=== PATIENT | male | born 2000 | race Caucasian/White ===

== ENCOUNTER 2022-04-06 16:08 | Emergency (ER) | payer SELFPAY ==
[2022-04-06] MEDS ORDERED: LORAZEPAM 1 MG TABLET ONE (16:38)
[2022-04-06 17:04] LABS: Absolute Lymphocytes (CBC) 1.7 K/uL (0.7-4.9); Lymphocytes % 24.2 % (15.3-44.8); MCV 83.3 fL (80-100); MPV 6.9 fL (7.6-11.3); RBC Red Blood Cell Count 5.29 M/uL (4.33-5.43)
[2022-04-06 17:23] LABS: Potassium 3.5 mmol/L (3.5-5.1); Troponin High Sensitivity 8.6 pg/mL (<58.9)
--- NOTE | 2022-04-06 18:05 | RAD REPORT ---
EXAM DESCRIPTION: RAD - Chest Single View - 04/06/2022 6:00 pm CLINICAL HISTORY: PALPITATIONS COMPARISON: None TECHNIQUE: AP portable chest image was obtained 04/06/2022 6:00 pm . FINDINGS: Lungs are clear. Heart and vasculature are normal. No measurable pleural effusion and no p neumothorax. No acute bony abnormality seen. No acute aortic findings suspected. IMPRESSION: No acute cardiopulmonary process.
--- NOTE | 2022-04-06 18:12 | ER ---
Nurse's Notes [facility] Name: Alfredo Guajardo Age: 21 yrs Sex: Male : 2000 Arrival Date: 04/06/2022 Time: 16:13 Bed 16 Private MD: Diagnosis: Palpitations Presentation: 04/06 16:17 Chief complaint: Patient states: Anxiety that all of a sudden came on with chest mb9 palpitations states has hx of anxiety. no longer takes medications for it. Chief complaint: EMS states: Patient picked up at home in his car. Patient had an anxiety attack. HR in the 160's for EMS. Glucose 96. Coronavirus screen: Vaccine status: Patient reports being unvaccinated. Client denies travel out of the [place] in the last 14 days. At this time, the client does not indicate any symptoms associated with coronavirus-19. Ebola Screen: Patient negative for fever greater than or equal to 101.5 degrees Fahrenheit, and additional compatible Ebola Virus Disease symptoms Patient denies exposure to infectious person. Patient denies travel to an Ebola-affected area in the 21 days before illness onset. No symptoms or risks identified at this time. Initial Sepsis Screen: Does the patient meet any 2 criteria? HR > 90 bpm. Yes Does the patient have a suspected source of infection? No. Patient's initial sepsis screen is negative. Risk Assessment: Do you want to hurt yourself or someone else? Patient reports no desire to harm self or others. Onset of symptoms was April 06, 2022. Care prior to arrival: IV initiated. 20 GA, in the right antecubital area. 16:17 Method Of Arrival: EMS: [facility] mb9 16:17 Acuity: CHRIS 3 mb9 Triage Assessment: 16:32 General: Appears in no apparent distress. comfortable, Behavior is calm, cooperative, mb9 anxious. Pain: Denies pain. Neuro: No deficits noted. Level of Consciousness is awake, alert, obeys commands, Oriented to person, place, time, situation, Appropriate for age. Cardiovascular: Reports palpitations, Capillary refill < 3 seconds Pulses are all present. Rhythm is sinus rhythm Chest pain is denied. Respiratory: No deficits noted. Airway is patent Respiratory effort is even, unlabored, Respiratory pattern is regular, symmetrical. Historical: - Allergies: 16:32 No Known Allergies; mb9 - Home Meds: 16:32 None [Active]; mb9 - PMHx: 16:32 Anxiety; ADHD; mb9 - Immunization history:: Adult Immunizations not up to date, Client reports having NOT received the Covid vaccine. - Social history:: Smoking status: Patient denies any tobacco usage or history of. Screenin:33 Abuse screen: Denies threats or abuse. Denies injuries from another. Nutritional mb9 screening: No deficits noted. Tuberculosis screening: No symptoms or risk factors identified. Fall Risk None identified. No fall in past 12 months (0 pts). No secondary diagnosis (0 pts). IV access (20 points). Ambulatory Aid- None/Bed Rest/Nurse Assist (0 pts). Gait- Normal/Bed Rest/Wheelchair (0 pts) Mental Status- Oriented to own ability (0 pts). Total Borja Fall Scale indicates No Risk (0-24 pts). Assessment: 16:33 Reassessment: Patient appears in no apparent distress at this time. see triage mb9 assessment for initial assessment. 17:30 Reassessment: Patient appears in no apparent distress at this time. Patient and/or db family updated on plan of care and expected duration. Pain level reassessed. Patient is alert, oriented x 3, equal unlabored respirations, skin warm/dry/pink. Patient states feeling better. 18:09 Reassessment: Patient appears in no apparent distress at this time. Patient and/or db family updated on plan of care and expected duration. Pain level reassessed. Patient is alert, oriented x 3, equal unlabored respirations, skin warm/dry/pink. Patient states feeling better. Patient states symptoms have improved. General: Appears in no apparent distress. comfortable, Behavior is calm, cooperative, appropriate for age, quiet. Pain: Denies pain. Neuro: No deficits noted. Level of Consciousness is awake, alert, obeys commands, Oriented to person, place, time, situation, Appropriate for age Speech is normal, Facial symmetry appears normal, Pupils are PERRLA. Cardiovascular: No deficits noted. Capillary refill < 3 seconds. Respiratory: No deficits noted. Airway is patent Respiratory effort is even, unlabored, Respiratory pattern is regular, symmetrical. GI: No deficits noted. No signs and/or symptoms were reported involving the gastrointestinal system. : No deficits noted. No signs and/or symptoms were reported regarding the genitourinary system. Vital Signs: 16:17 BP 138 / 96; Pulse 109; Resp 14; Temp 98.2(O); Pulse Ox 100% on R/A; Weight 72.57 kg; mb9 Height 5 ft. 7 in. (170.18 cm); Pain 0/10; 16:45 BP 141 / 89; Pulse 107; Resp 18; Pulse Ox 100% on R/A; db 17:30 BP 108 / 71; Pulse 100; Resp 16; Pulse Ox 99% on R/A; db 18:00 BP 109 / 68; Pulse 96; Resp 18; Pulse Ox 99% on R/A; db 18:45 BP 122 / 71; Pulse 97; Resp 17; Pulse Ox 99% on R/A; db 16:17 Body Mass Index 25.06 (72.57 kg, 170.18 cm) mb9 ED Course: 16:13 Patient arrived in ED. ld1 16:15 Denzel Guerra PA is PHCP. [facility] 16:15 Olman Rice MD is Attending Physician. [facility] 16:22 PHCP role handed off by Denzel Guerra PA kb 16:22 Yvette Hoskins FNP-C is PHCP. kb 16:31 Triage completed. mb9 16:33 Arm band placed on right wrist. mb9 16:34 Maintain EMS IV. Dressing intact. Good blood return noted. Site clean \T\ dry. Gauge \T\ mb 9 site: 20G right AC. 16:50 Initial lab(s) drawn, by ED staff, sent to lab. iw 16:53 Mariam Ruffin, RN is Primary Nurse. db 18:02 XRAY Chest (1 view) In Process Unspecified. EDMS 18:10 Patient has correct armband on for positive identification. Bed in low position. Call db light in reach. Side rails up X 1. 18:55 No provider procedures requiring assistance completed. IV discontinued, intact, db bleeding controlled, No redness/swelling at site. Administered Medications: 16:30 Drug: Ativan (LORazepam) 1 mg Route: PO; db 18:07 Follow up: Response: No adverse reaction db Medication: 16:33 VIS not applicable for this client. mb9 Outcome: 18:11 Discharge ordered by . kb 18:55 Discharged to home ambulatory. db 18:55 Condition: stable 18:55 Discharge instructions given to patient, Instructed on discharge instructions, follow up and referral plans. Demonstrated understanding of instructions. 18:56 Patient left the ED. db Signatures: Dispatcher [employer] EDYvette Gooden, SUPPORT ENGINEER-C SUPPORT ENGINEER-CkDenzel Hernandez PA PA jmm Williams, Irene, RN RN iw Tiffany Bean RN RN ld1 Mariam Ruffin RN RN db Yodit Lamb RN RN mb9 Corrections: (The following items were deleted from the chart) 16:45 16:27 Yodit Lamb RN is Primary Nurse. mb9 mb9
--- NOTE | 2022-04-06 18:12 | EDPHYS ---
Physician Documentation [facility] Name: Alfredo Guajardo Age: 21 yrs Sex: Male : 2000 Arrival Date: 04/06/2022 Time: 16:13 Bed 16 Private MD: ED Physician Olman Rice HPI: 04/06 17:15 This 21 yrs old Male presents to ER via EMS with complaints of Anxiety. kb 17:15 The patient presents with a history of heart racing. Context: The symptoms occur at kb rest. Onset: The symptoms/episode began/occurred just prior to arrival. Duration: The patient or guardian reports a single episode, that is still ongoing, but improving. Modifying factors: The symptoms are aggravated by nothing. The symptoms are alleviated by nothing. Associated signs and symptoms: Pertinent positives: anxiety, SOB. Severity of symptoms: At their worst the symptoms were moderate in the emergency department the symptoms have improved. The patient has experienced similar episodes in the past. The patient has not recently seen a physician. Pt reports he was sitting in his car and started having palpitations and shortness of breath. States he has had similar episodes with anxiety in the past. Has been under a lot of stress for the past few months. Historical: - Allergies: 16:32 No Known Allergies; mb9 - Home Meds: 16:32 None [Active]; mb9 - PMHx: 16:32 Anxiety; ADHD; mb9 - Immunization history:: Adult Immunizations not up to date, Client reports having NOT received the Covid vaccine. - Social history:: Smoking status: Patient denies any tobacco usage or history of. ROS: 17:14 Constitutional: Negative for fever, chills, and weight loss. kb 17:14 Cardiovascular: Positive for palpitations. 17:14 Respiratory: Positive for shortness of breath. 17:14 Psych: Positive for anxiety. 17:14 All other systems are negative. Exam: 17:13 Constitutional: This is a well developed, well nourished patient who is awake, alert, kb and in no acute distress. Head/Face: Normocephalic, atraumatic. ENT: Moist Mucous membranes Chest/axilla: Normal chest wall appearance and motion. Respiratory: Respirations even and unlabored. No increased work of breathing. Talking in full sentences Abdomen/GI: Soft, non-tender. No distention Skin: Warm, dry with normal turgor. Normal color. MS/ Extremity: Pulses equal, no cyanosis. Neurovascular intact. Full, normal range of motion. Neuro: Awake and alert, GCS 15, oriented to person, place, time, and situation. Moves all extremities. Normal gait. Psych: Awake, alert, with orientation to person, place and time. Behavior, mood, and affect are within normal limits. 17:13 Cardiovascular: Rate: tachycardic, Rhythm: regular, Pulses: no pulse deficits are appreciated, Heart sounds: normal. 17:13 ECG was reviewed by the Attending Physician. Vital Signs: 16:17 BP 138 / 96; Pulse 109; Resp 14; Temp 98.2(O); Pulse Ox 100% on R/A; Weight 72.57 kg; mb9 Height 5 ft. 7 in. (170.18 cm); Pain 0/10; 16:45 BP 141 / 89; Pulse 107; Resp 18; Pulse Ox 100% on R/A; db 17:30 BP 108 / 71; Pulse 100; Resp 16; Pulse Ox 99% on R/A; db 18:00 BP 109 / 68; Pulse 96; Resp 18; Pulse Ox 99% on R/A; db 18:45 BP 122 / 71; Pulse 97; Resp 17; Pulse Ox 99% on R/A; db 16:17 Body Mass Index 25.06 (72.57 kg, 170.18 cm) mb9 MDM: 16:20 Patient medically screened. vanessa 17:15 Data reviewed: vital signs, nurses notes. Data interpreted: Pulse oximetry: on room air kb is 100 %. Interpretation: normal. 18:09 Counseling: I had a detailed discussion with the patient and/or guardian regarding: the kb historical points, exam findings, and any diagnostic results supporting the discharge/admit diagnosis, lab results, radiology results, the need for outpatient follow up, a family practitioner, to return to the emergency department if symptoms worsen or persist or if there are any questions or concerns that arise at home. 04/06 16:25 Order name: Basic Metabolic Panel; Complete Time: 17:35 kb 04/06 16:25 Order name: CBC with Diff; Complete Time: 17:05 kb 04/06 16:25 Order name: D-Dimer; Complete Time: 17:16 kb 04/06 16:25 Order name: Troponin HS; Complete Time: 17:35 kb 04/06 16:25 Order name: XRAY Chest (1 view); Complete Time: 18:09 kb 04/06 16:25 Order name: EKG; Complete Time: 16:26 kb 04/06 16:25 Order name: Cardiac monitoring; Complete Time: 16:29 kb 04/06 16:25 Order name: EKG - Nurse/Tech; Complete Time: 16:54 kb 04/06 16:25 Order name: IV Saline Lock; Complete Time: 16:29 kb 04/06 16:25 Order name: Labs collected and sent; Complete Time: 16:54 kb 04/06 16:25 Order name: O2 Per Protocol; Complete Time: 16:29 kb 04/06 16:25 Order name: O2 Sat Monitoring; Complete Time: 16:29 kb EC:13 Rate is 105 beats/min. Rhythm is regular. QRS Balko is Normal. [place] interval is normal at kb 138 msec. QRS interval is normal at 104 msec. QT interval is normal at 422 msec. Administered Medications: 16:30 Drug: Ativan (LORazepam) 1 mg Route: PO; db 18:07 Follow up: Response: No adverse reaction db Disposition Summary: 04/06/22 18:11 Discharge Ordered Location: Home kb Condition: Stable kb Diagnosis - Palpitations kb Followup: kb - With: Emergency Department - When: As needed - Reason: Worsening of condition Followup: kb - With: Private Physician - When: 2 - 3 days - Reason: Recheck today's complaints, Continuance of care, Re-evaluation by your physician Discharge Instructions: - Discharge Summary Sheet kb - Panic Attack, [id number] kb - Palpitations, [id number] kb Forms: - Medication Reconciliation Form kb - Thank You Letter kb - Antibiotic Education kb - Prescription Opioid Use kb - Work release form db Signatures: Dispatcher [employer] Yvette Cuevas, ANCILLARY SERVICES MANAGER-C ANCILLARY SERVICES MANAGER-Olman Myers MD MD cha Benton, Danielle, RN RN Yodit Mcgee RN RN mb9
[2022-04-06 18:59] VITALS: TEMP 98.2
[2022-04-06 19:02] VITALS: O2SAT 99
[2022-04-06 19:04] VITALS: BP 122/71
--- NOTE | 2022-04-07 13:46 | EKG ---
Test Date: 2022-04-06 Test Time: 16:50:31 Network Coordinator: ERI MEASUREMENT RESULTS: Intervals: Rate: 105 AL: 138 QRSD: 104 QT: 320 QTc: 422 [place]: P: 40 AL: 138 QRS: 51 T: 51 INTERPRETIVE STATEMENTS: Sinus tachycardia Incomplete right bundle branch block Borderline ECG No previous ECG available for comparison Electronically Signed On 04-07-22 13:44:32 GAS METER REPAIRER by Lizandro Schmidt
== END 2022-04-06 18:56 | disposition home or self-care (01) ==
LOC: ER 16:08
DX: R00.2 Palpitations (principal); F41.9 Anxiety disorder, unspecified
CPT/HCPCS: 36415; 71045; 80048; 84484; 85025; 85379; 93005; 99284

== ENCOUNTER 2022-05-07 07:58 | Emergency (ER) | payer SELFPAY ==
--- OUTSIDE RECORDS SUMMARY | 2022-05-07 08:01 | XMS REPORT | Continuity of Care Document ---
:2000 Author Organization [facility] t Address [address] [place] [address] Care Team Providers Name Role Phone Lidia Simpson RN Attending Clinician Unavailable UNKNOWN, ATTENDING Attending Clinician Unavailable Del Pimentel PA-C Attending Clinician Care, [facility] Attending Clinician Unavailable Unknown, Attending Attending Clinician Unavailable Doctor Unassigned, [place] Attending Clinician Unavailable Minal Earl MD Attending Clinician MORIS GARCIA Attending Clinician Unavailable Payers Payer Name Policy Type Policy Number Effective Date Expiration Date [facility] [id number] 2016 00:00:00 Problems Condition Condition Condition Status Onset Resolution Last Treating Co mments Source Name Details Category Date Date Treatment Clinician Date Nocturnal Nocturnal Disease Active Uni vers enuresis enuresis 10-09 ity of 00:00: [address] Chronic Chronic Disease Active Univers depressive depressive it y of personal[place]it [place] disorder y disorder Tn dicok Branch Attention Attention Disease Active Overview: Univers deficit deficit Formattin ity o f hyperactiv hyperactiv g of this [place] ity ity note Medical disorder disorder might be Bran ch (ADHD) (ADHD) different from the original. 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 Allergies, Adverse Reactions, Alerts Allergy Allergy Status Severity Reaction(s) Onset Inactive Treating Comm ents Source Name Type Date Date Clinician NO KNOWN Drug Active Univers ALLERGIE Class ity of S [facility] Social History Social Habit Start Date Stop Date Quantity Comments Source Alcohol intake 2018-06-22 2018-06-22 University of 00:00:00 00:00:00 [facility] Tobacco use and 2017-04-13 2017-04-13 Smokeless tobacco Un iversity of exposure 00:00:00 00:00:00 non-user [facility] Tobacco Comment 2013-03-30 2013-03-30 uncle smokes Univers ity of 00:00:00 00:00:00 around patient [facility] Sex Assigned At 2000 2000 Universit y of 00:00:00 00:00:00 [facility] Smoking Status Start Date Stop Date Source Never smoked tobacco [facility] Medications Ordered Filled Start Stop Current Ordering Indication Dosage Frequency Signature Comments Components Source Medication Medication Date Date Medication? Clinician (SIG) Name Name No known No No known Unive rs medications 8-15 medication it y of 13:11: s [address] No known No Univers medications ity [facility] No known No [facility] No [facility] medications ity [facility] No known No [facility] Immunizations Ordered Immunization Filled Date Status Comments Sour ce Name Immunization Name Meningococcal 2018-06-22 Completed University of Oligosaccharide 00:00:00 [place] [facility] (groups A, C, Y and Branc h W-135) conjugate vaccine (MCV4O) Meningococcal B, OMV 2018-06-22 Completed Univ ersity of 00:00:00 [facility] Influenza Virus 2018-06-22 Completed Universit y of Vaccine Quad .5 mL IM 00:00:00 [facility] 6+ MO Branch Meningococcal 2018-06-22 Completed University of Oligosaccharide 00:00:00 [place] [facility] (groups A, C, Y and Branc h W-135) conjugate vaccine (MCV4O) Meningococcal B, OMV 2018-06-22 Completed Univ ersity of 00:00:00 [facility] Influenza Virus 2018-06-22 Completed Universit y of Vaccine Quad .5 mL IM 00:00:00 [facility] 6+ MO Branch Meningococcal 2018-06-22 Completed University of Oligosaccharide 00:00:00 [place] [facility] (groups A, C, Y and Branc h W-135) conjugate vaccine (MCV4O) Meningococcal B, OMV 2018-06-22 Completed Univ ersity of 00:00:00 [facility] Influenza Virus 2018-06-22 Completed Universit y of Vaccine Quad .5 mL IM 00:00:00 [facility] 6+ MO Branch Meningococcal 2018-06-22 Completed University of Oligosaccharide 00:00:00 [place] [facility] (groups A, C, Y and Branc h W-135) conjugate vaccine (MCV4O) Meningococcal B, OMV 2018-06-22 Completed Univ ersity of 00:00:00 [facility] Influenza Virus 2018-06-22 Completed Universit y of Vaccine Quad .5 mL IM 00:00:00 [facility] 6+ MO [facility] Meningococcal 2018-06-22 Completed University of Oligosaccharide 00:00:00 [place] [facility] (groups A, C, Y and Branc h W-135) conjugate vaccine (MCV4O) Meningococcal B, OMV 2018-06-22 Completed Univ ersity of 00:00:00 [facility] Influenza Virus 2018-06-22 Completed Universit y of Vaccine Quad .5 mL IM 00:00:00 [facility] 6+ [facility] HPV9 2016-07-16 Completed University of 00:00:00 [place] [facility] HPV9 2016-07-16 Completed University of 00:00:00 [facility] HPV9 2016-07-16 Completed University of 00:00:00 [place] [facility] HPV9 2016-07-16 Completed University of 00:00:00 [place] [facility] HPV9 2016-07-16 Completed University of 00:00:00 [facility] HPV9 2015-03-21 Completed University of 00:00:00 [facility] HPV9 2015-03-21 Completed University of 00:00:00 [facility] HPV9 2015-03-21 Completed University of 00:00:00 [place] [facility] HPV9 2015-03-21 Completed University of 00:00:00 [place] [facility] HPV9 2015-03-21 Completed University of 00:00:00 [place] [facility] HPV9 2015-01-17 Completed University of 00:00:00 [place] [facility] HPV9 2015-01-17 Completed University of 00:00:00 [facility] HPV9 2015-01-17 Completed University of 00:00:00 [facility] HPV9 2015-01-17 Completed University of 00:00:00 [place] [facility] HPV9 2015-01-17 Completed University of 00:00:00 [facility] Meningococcal Vaccine 2013-11-08 Completed Uni versity of 00:00:00 [facility] TDAP 2013-11-08 Completed University of 00:00:00 [facility] Varicella 2013-11-08 Completed University of (varivax)(chicken pox) 00:00:00 [facility] Meningococcal Vaccine 2013-11-08 Completed Uni versity of 00:00:00 [facility] TDAP 2013-11-08 Completed University of 00:00:00 [facility] Varicella 2013-11-08 Completed University of (varivax)(chicken pox) 00:00:00 [facility] Meningococcal Vaccine 2013-11-08 Completed Uni versity of 00:00:00 [facility] TDAP 2013-11-08 Completed University of 00:00:00 [facility] Varicella 2013-11-08 Completed University of (varivax)(chicken pox) 00:00:00 [facility] Meningococcal Vaccine 2013-11-08 Completed Uni versity of 00:00:00 [facility] TDAP 2013-11-08 Completed University of 00:00:00 [facility] Varicella 2013-11-08 Completed University of (varivax)(chicken pox) 00:00:00 [facility] Meningococcal Vaccine 2013-11-08 Completed Uni versity of 00:00:00 [facility] TDAP 2013-11-08 Completed University of 00:00:00 [facility] Varicella 2013-11-08 Completed University of (varivax)(chicken pox) 00:00:00 [facility] DTAP 2005-09-23 Completed University of 00:00:00 [facility] Hep B, Adol or Pedi 2005-09-23 Completed Unive rsity of Dosage 00:00:00 [facility] MMR 2005-09-23 Completed University of 00:00:00 [facility] HEPATITIS A 2005-09-23 Completed University of 00:00:00 [facility] DTAP 2005-09-23 Completed University of 00:00:00 [facility] Hep B, Adol or Pedi 2005-09-23 Completed Unive rsity of Dosage 00:00:00 [facility] MMR 2005-09-23 Completed University of 00:00:00 [facility] HEPATITIS A 2005-09-23 Completed University of 00:00:00 [facility] DTAP 2005-09-23 Completed University of 00:00:[address] [facility] Hep B, Adol or Pedi 2005-09-23 Completed Unive rsity of Dosage 00:00:00 [facility] MMR 2005-09-23 Completed University of 00:00:00 [facility] HEPATITIS A 2005-09-23 Completed University of 00:00:00 [facility] DTAP 2005-09-23 Completed University of 00:00:00 [facility] Hep B, Adol or Pedi 2005-09-23 Completed Unive rsity of Dosage 00:00:00 [facility] MMR 2005-09-23 Completed University of 00:00:00 [facility] HEPATITIS A 2005-09-23 Completed University of 00:00:00 [facility] DTAP 2005-09-23 Completed University of 00:00:00 [facility] Hep B, Adol or Pedi 2005-09-23 Completed Unive rsity of Dosage 00:00:00 [facility] MMR 2005-09-23 Completed University of 00:00:00 [facility] HEPATITIS A 2005-09-23 Completed University of 00:00:00 [facility] Polio (IPV/OPV) 2004-12-12 Completed Universit y of 00:00:[address] [facility] DTAP 2004-12-12 Completed University of 00:00:00 [facility] HEPATITIS A 2004-12-12 Completed University of 00:00:00 [facility] MMR 2004-12-12 Completed University of 00:00:00 [facility] Pneumococcal 7 2004-12-12 Completed University of Conjugate, PCV7 00:00:00 [place] [facility] (Prevnar7) Branch Polio (IPV/OPV) 2004-12-12 Completed Universit y of 00:00:[address] [facility] DTAP 2004-12-12 Completed University of 00:00:00 [facility] HEPATITIS A 2004-12-12 Completed University of 00:00:00 [facility] MMR 2004-12-12 Completed University of 00:00:00 [facility] Pneumococcal 7 2004-12-12 Completed University of Conjugate, PCV7 00:00:00 [place] [facility] (Prevnar7) Branch Polio (IPV/OPV) 2004-12-12 Completed Universit y of 00:00:00 [facility] DTAP 2004-12-12 Completed University of 00:00:00 [facility] HEPATITIS A 2004-12-12 Completed University of 00:00:00 [facility] MMR 2004-12-12 Completed University of 00:00:00 [facility] Pneumococcal 7 2004-12-12 Completed University of Conjugate, PCV7 00:00:00 [place] [facility] (Prevnar7) [place] Polio (IPV/OPV) 2004-12-12 Completed Universit y of 00:00:00 [facility] DTAP 2004-12-12 Completed University of 00:00:00 [facility] HEPATITIS A 2004-12-12 Completed University of 00:00:00 [facility] MMR 2004-12-12 Completed University of 00:00:00 [facility] Pneumococcal 7 2004-12-12 Completed University of Conjugate, PCV7 00:00:00 [place] [facility] (Prevnar7) Branch Polio (IPV/OPV) 2004-12-12 Completed Universit y of 00:00:00 [facility] DTAP 2004-12-12 Completed University of 00:00:00 [facility] HEPATITIS A 2004-12-12 Completed University of 00:00:00 [facility] MMR 2004-12-12 Completed University of 00:00:00 [facility] Pneumococcal 7 2004-12-12 Completed University of Conjugate, PCV7 00:00:00 [place] [facility] (Prevnar7) Branch DTAP 2004-05-10 Completed University of 00:00:00 [facility] HIB 4 Dose Schedule 2004-05-10 Completed Unive rsity of 00:00:00 [facility] Hep B, Adol or Pedi 2004-05-10 Completed Unive rsity of Dosage 00:00:00 [facility] Pneumococcal 7 2004-05-10 Completed University of Conjugate, PCV7 00:00:00 [place] [facility] (Prevnar7) Branch Polio (IPV/OPV) 2004-05-10 Completed Universit y of 00:00:00 [facility] DTAP 2004-05-10 Completed University of 00:00:00 [facility] HIB 4 Dose Schedule 2004-05-10 Completed Unive rsity of 00:00:00 [facility] Hep B, Adol or Pedi 2004-05-10 Completed Unive rsity of Dosage 00:00:00 [facility] DTAP 2004-05-10 Completed University of 00:00:00 [facility] Pneumococcal 7 2004-05-10 Completed University of Conjugate, PCV7 00:00:00 [facility] ical (Prevnar7) [place] Polio (IPV/OPV) 2004-05-10 Completed Universit y of 00:00:00 [facility] HIB 4 Dose Schedule 2004-05-10 Completed Unive rsity of 00:00:00 [facility] Hep B, Adol or Pedi 2004-05-10 Completed Unive rsity of Dosage 00:00:00 [facility] Pneumococcal 7 2004-05-10 Completed University of Conjugate, PCV7 00:00:00 [facility] ica (Prevnar7) [place] Polio (IPV/OPV) 2004-05-10 Completed Universit y of 00:00:00 [facility] DTAP 2004-05-10 Completed University of 00:00:00 [facility] HIB 4 Dose Schedule 2004-05-10 Completed Unive rsity of 00:00:00 [facility] Hep B, Adol or Pedi 2004-05-10 Completed Unive rsity of Dosage 00:00:00 [facility] Pneumococcal 7 2004-05-10 Completed University of Conjugate, PCV7 00:00:00 [facility] ica (Prevnar7) [place] Polio (IPV/OPV) 2004-05-10 Completed Universit y of 00:00:00 [facility] DTAP 2004-05-10 Completed University of 00:00:00 [facility] HIB 4 Dose Schedule 2004-05-10 Completed Unive rsity of 00:00:00 [facility] Hep B, Adol or Pedi 2004-05-10 Completed Unive rsity of Dosage 00:00:00 [facility] Pneumococcal 7 2004-05-10 Completed University of Conjugate, PCV7 00:00:00 [facility] ica (Prevnar7) [place] Polio (IPV/OPV) 2004-05-10 Completed Universit y of 00:00:00 [facility] Varicella 2001-09-07 Completed University of (varivax)(chicken pox) 00:00:00 [facility] Varicella 2001-09-07 Completed University of (varivax)(chicken pox) 00:00:00 [facility] Varicella 2001-09-07 Completed University of (varivax)(chicken pox) 00:00:00 [facility] Varicella 2001-09-07 Completed University of (varivax)(chicken pox) 00:00:00 [facility] Varicella 2001-09-07 Completed University of (varivax)(chicken pox) 00:00:00 [facility] DTAP 2000 Completed University of 00:00:00 [facility] HIB 4 Dose Schedule 2000 Completed Unive rsity of 00:00:00 [facility] Pneumococcal 7 2000 Completed University of Conjugate, PCV7 00:00:00 [place] [facility] (Prevnar7) Branch Polio (IPV/OPV) 2000 Completed Universit y of 00:00:00 [facility] DTAP 2000 Completed University of 00:00:00 [facility] DTAP 2000 Completed University of 00:00:00 [facility] HIB 4 Dose Schedule 2000 Completed Unive rsity of 00:00:00 [facility] Pneumococcal 7 2000 Completed University of Conjugate, PCV7 00:00:00 [place] [facility] (Prevnar7) Branch Polio (IPV/OPV) 2000 Completed Universit y of 00:00:00 [facility] HIB 4 Dose Schedule 2000 Completed Unive rsity of 00:00:00 [facility] Pneumococcal 7 2000 Completed University of Conjugate, PCV7 00:00:00 [place] [facility] (Prevnar7) Branch Polio (IPV/OPV) 2000 Completed Universit y of 00:00:00 [facility] DTAP 2000 Completed University of 00:00:00 [facility] HIB 4 Dose Schedule 2000 Completed Unive rsity of 00:00:00 [facility] Pneumococcal 7 2000 Completed University of Conjugate, PCV7 00:00:00 [place] [facility] (Prevnar7) Branch Polio (IPV/OPV) 2000 Completed Universit y of 00:00:00 [facility] DTAP 2000 Completed University of 00:00:00 [facility] HIB 4 Dose Schedule 2000 Completed Unive rsity of 00:00:00 [facility] Pneumococcal 7 2000 Completed University of Conjugate, PCV7 00:00:00 [place] [facility] (Prevnar7) Branch Polio (IPV/OPV) 2000 Completed Universit y of 00:00:00 [facility] Hep B, Adol or Pedi 2000 Completed Unive rsity of Dosage 00:00:00 [place] [facility] Hep B, Adol or Pedi 2000 Completed Unive rsity of Dosage 00:00:00 [facility] Hep B, Adol or Pedi 2000 Completed Unive rsity of Dosage 00:00:00 [place] [facility] Hep B, Adol or Pedi 2000 Completed Unive rsity of Dosage 00:00:00 [facility] Hep B, Adol or Pedi 2000 Completed Unive rsity of Dosage 00:00:00 [facility] Vital Signs Vital Name Observation Time Observation Value Comments Source Systolic blood 2019-12-17 18:11:00 128 mm[Hg] Univer sity of pressure [facility] Diastolic blood 2019-12-17 18:11:00 85 mm[Hg] Unive rsity of pressure [facility] Heart rate 2019-12-17 18:11:00 110 /min [facility] Body temperature 2019-12-17 18:11:00 36.89 Michelle [facility] Res[facility] rate 2019-12-17 18:11:00 16 /min [facility] Body weight 2019-12-17 18:11:00 66.724 kg [facility] Oxygen saturation in 2019-12-17 18:11:00 98 /min [facility] Arterial blood by [facility] Pulse oximetry [place] Procedures Procedure Date / Time Performed Performing Clinician Sourc e XR HAND <3 VW RIGHT 2019-12-17 18:53:34 Del Pimentel [facility] ASSIGNMENT OF BENEFITS 2019-12-17 18:02:08 Doctor Unassigned, No [facility] Name Medical Branch Encounters Start End Encounter Admission Attending Care Care Encounter Source Date/Time Date/Time Type Type Clinicians Facility Department ID 2022-05-06 2022-05-06 Nurse DEL Simpson [id number] Univers 00:00:00 00:00:00 [id number] [place] [facility] [id number] [place] [address] Branch 2020-07-22 2020-07-22 Outpatient R UNKNOWN, [facility] [id number] Univers 08:00:00 08:00:00 ATTENDING ity [facility] 2019-12-17 2019-12-17 Hospital Loren Dickson [id number] Univers 13:45:33 23:59:00 Encounter Del Pediatric [id number] [place]y [id number] [place] [id number] [facility] 808 [facility] 2019-12-17 2019-12-17 Urgent Care, [place] [facility]gent Dickson [id number] Univers 13:04:27 13:19:27 Care Unknown, Attending Pediatric [id number] ity [id number] [id number] [facility] 370 [facility] 2019-12-17 2019-12-17 Outpatient R UNKNOWN, [facility] [id number] Univers 13:00:00 13:00:00 [facility] 2019-12-17 2019-12-17 Orders Doctor DEL [id number] Univers 00:00:00 00:00:00 Only Unassigned, HENNA [id number] ity of [place] [facility] [id number] [facility] as [id number] [facility] 009 Branch 2019-11-07 2019-11-07 Telephone Dickson Earl [id number] Univers 00:00:00 00:00:00 Minal P Pediatric [id number] ity [id number] [id number] [facility] Primary 225 [facility] 2019-10-14 2019-10-14 Outpatient R MORIS GARCIA [facility] [id number] Univers 08:40:00 08:40:00 [facility] Results Test Description Test Time Test Comments Results Result Sourc e Comments XR HAND <3 VW 2019-12-17 Normal exam. Universi ty of RIGHT 20:19:53 EXAM: XR HAND <3 [place] [facility] VW RIGHT HISTORY: Branch right hand pain COMPARISON: None FINDINGS: Imaging of the hand demonstrates no erosions, subluxations or fractures.Joint spaces are preserved. [facility], Radiant Results Inft User - 12/17/2019 3:20 PM CDTEXAM:XR HAND <3 VW RIGHTHISTORY:righ t hand pain COMPARISON:NoneFI NDINGS: Imaging of the hand demonstrates no erosions, subluxations or fractures.Joint spaces are preserved.IMPRESS IONNormal exam.
[2022-05-07] MEDS ORDERED: TDAP (DIPHTH,PERTUSS(ACELL),TET VAC) 0.5 ML VIAL IMVAC ONE (08:25)
[2022-05-07] MEDS ORDERED: LORAZEPAM 1 MG TABLET ONE (08:25)
--- NOTE | 2022-05-07 09:58 | RAD REPORT ---
EXAM DESCRIPTION: RAD - Foot Right 3 View - 05/07/2022 8:45 am CLINICAL HISTORY: punctureplantar surface of the foot COMPARISON: No comparisons FINDINGS: No fracture, dislocation or periosteal reaction. No acute bone or joint finding. At the plantar midfoot site of puncture as well as elsewhere in the foot no foreign body, air or abno rmality seen. Final written report was delayed due to malfunction of the motor vehicle salesperson system. IMPRESSION: Negative right foot examination.
--- NOTE | 2022-05-07 10:28 | EDPHYS ---
Physician Documentation [facility] Name: Alfredo Guajardo Age: 21 yrs Sex: Male : 2000 Arrival Date: 05/07/2022 Time: 08:07 Bed 20 Private MD: ED Physician Po White HPI: 05/07 08:19 This 21 yrs old Male presents to ER via EMS with complaints of Anxiety. [facility] 08:19 Onset: The symptoms/episode began/occurred acutely, this morning. This is a 21-year-old [facility] male with history of ADHD and anxiety the presents emerged part with complaints of a panic attack beginning earlier this morning. Patient arrived EMS. States his symptoms have partially alleviated but also has complaints of a plantar puncture wound to his right foot. Patient states he stepped on a nail which went through shoe. Patient unsure whether he is up-to-date on his tetanus immunization. Patient denies HI or SI. Historical: - Allergies: 08:18 No Known Allergies; bp - Home Meds: 08:18 None [Active]; bp - PMHx: 08:18 adhd; Anxiety; bp - Immunization history:: Adult Immunizations up to date. - Social history:: Smoking status: Patient reports the use of cigarette tobacco products, unknown amount. ROS: 08:19 Constitutional: Negative for fever, chills, and weight loss, Cardiovascular: Negative jmm for chest pain, palpitations, and edema, Respiratory: Negative for shortness of breath, cough, wheezing, and pleuritic chest pain. 08:19 MS/extremity: Positive for pain. 08:19 Psych: Positive for anxiety. 08:19 All other systems are negative. Exam: 08:19 Constitutional: This is a well developed, well nourished patient who is awake, alert, jmm and in no acute distress. Head/Face: atraumatic. Eyes: EOMI, no conjunctival erythema appreciated ENT: Moist Mucus Membranes Neck: Trachea midline, Supple Chest/axilla: Normal chest wall appearance and motion. Cardiovascular: Regular rate and rhythm. No edema appreciated Respiratory: Normal respirations, no respiratory distress appreciated Abdomen/GI: Non distended Back: Normal ROM 08:19 MS/ Extremity: Moves all extremities, no obvious deformities appreciated, no edema noted to the lower extremities Neuro: Awake and alert 08:19 Skin: Puncture wound noted to the right foot, no surrounding erythema, induration or purulent drainage appreciated. 08:19 Psych: Behavior/mood is pleasant, cooperative. Vital Signs: 08:17 BP 125 / 73; Pulse 94; Resp 16; Temp 98; Pulse Ox 100% ; bp 09:31 BP 109 / 73; Pulse 95; Resp 16; Pulse Ox 99% ; bp 10:38 BP 125 / 67; Pulse 84; Resp 16; Pulse Ox 99% ; bp MDM: 08:19 Patient medically screened. [facility] 10:26 Data reviewed: vital signs, nurses notes. Counseling: I had a detailed discussion with richard the patient and/or guardian regarding: the historical points, exam findings, and any diagnostic results supporting the discharge/admit diagnosis, radiology results, the need for outpatient follow up, to return to the emergency department if symptoms worsen or persist or if there are any questions or concerns that arise at home. ED course: Symptoms are alleviated in the ED. Patient will be prescribed oral antibiotics for his plantar puncture wound. Otherwise given infection risk return precautions. Patient will also be given resources for mental health. Patient understood and agrees plan of care.. 05/07 08:19 Order name: Foot Right 3 View XRAY; Complete Time: 09:59 [facility] Administered Medications: 08:26 Drug: Ativan (LORazepam) 1 mg Route: PO; bp 10:38 Follow up: Response: Anxiety decreased bp 08:27 Drug: Tetanus-Diphtheria Toxoid Adult 0.5 ml {Client Development Consultant: [employer] Exp: bp 11/15/2022. Lot #: [id number]. } Route: IM; Site: right deltoid; 10:38 Follow up: Response: No adverse reaction bp Disposition Summary: 05/07/22 10:27 Discharge Ordered Location: Home jm Condition: Stable jm Diagnosis - Anxiety jmm - Plantar puncture jm Followup: jmm - With: Private Physician - When: 2 - 3 days - Reason: Recheck today's complaints, Continuance of care, Re-evaluation by your physician Discharge Instructions: - Discharge Summary Sheet jmm - Puncture Wound jmm - Managing Anxiety, Adult jmm Forms: - Medication Reconciliation Form [facility] - Thank You Letter jmm - Antibiotic Education jmm - Prescription Opioid Use jm Prescriptions: - Hydroxyzine HCl 25 mg Oral Tablet - take 1 tablet by ORAL route every 6 hours As needed; 30 tablet; Refills: 0, radha Product Selection Permitted - Cipro 500 mg Oral Tablet - take 1 tablet by ORAL route every 12 hours for 7 days; 14 tablet; Refills: 0, richard Product Selection Permitted Signatures: Dispatcher [employer] Denzel Mondragon PA PA jmm Peltier, Brian, RN RN bp
--- NOTE | 2022-05-07 10:28 | ER ---
Nurse's Notes [facility] Name: Alfredo Guajardo Age: 21 yrs Sex: Male : 2000 Arrival Date: 05/07/2022 Time: 08:07 Bed 20 Private MD: Diagnosis: Anxiety;Plantar puncture Presentation: 05/07 08:17 Chief complaint: EMS states: ANXIETY ATTACK. Coronavirus screen: At this time, the bp client does not indicate any symptoms associated with coronavirus-19. Ebola Screen: No symptoms or risks identified at this time. Initial Sepsis Screen: Does the patient meet any 2 criteria? No. Patient's initial sepsis screen is negative. Does the patient have a suspected source of infection? No. Patient's initial sepsis screen is negative. Risk Assessment: Do you want to hurt yourself or someone else? Patient reports no desire to harm self or others. Onset of symptoms was May 07, 2022 at 08:00. 08:17 Method Of Arrival: EMS: [facility] bp 08:17 Acuity: CHRIS 4 bp Triage Assessment: 08:18 General: Appears in no apparent distress. comfortable, Behavior is cooperative, bp appropriate for age, anxious. Pain: Denies pain. EENT: No deficits noted. Neuro: No deficits noted. Cardiovascular: No deficits noted. Respiratory: No deficits noted. GI: No signs and/or symptoms were reported involving the gastrointestinal system. : No signs and/or symptoms were reported regarding the genitourinary system. Derm: No deficits noted. Musculoskeletal: No deficits noted. Historical: - Allergies: 08:18 No Known Allergies; bp - Home Meds: 08:18 None [Active]; bp - PMHx: 08:18 adhd; Anxiety; bp - Immunization history:: Adult Immunizations up to date. - Social history:: Smoking status: Patient reports the use of cigarette tobacco products, unknown amount. Screenin:19 [facility] ED Fall Risk Assessment (Adult) History of falling in the last 3 months, bp including since admission No falls in past 3 months (0 pts). Abuse screen: Denies threats or abuse. Denies injuries from another. Nutritional screening: No deficits noted. Tuberculosis screening: No symptoms or risk factors identified. Assessment: 08:19 General: SEE TRIAGE NOTE. bp 09:31 Reassessment: No changes from previously documented assessment. Patient and/or family bp updated on plan of care and expected duration. Pain level reassessed. 11:04 Reassessment: PT DC HOME. bp Vital Signs: 08:17 BP 125 / 73; Pulse 94; Resp 16; Temp 98; Pulse Ox 100% ; bp 09:31 BP 109 / 73; Pulse 95; Resp 16; Pulse Ox 99% ; bp 10:38 BP 125 / 67; Pulse 84; Resp 16; Pulse Ox 99% ; bp ED Course: 08:07 Patient arrived in ED. ko1 08:07 Denzel Guerra PA is PHCP. [facility] 08:07 Po White MD is Attending Physician. richard 08:11 Deepak Fajardo, RN is Primary Nurse. bp 08:18 Triage completed. bp 08:18 Arm band placed on. bp 08:19 Patient has correct armband on for positive identification. Bed in low position. Call bp light in reach. Side rails up X2. 08:47 Foot Right 3 View XRAY In Process Unspecified. EDMS 10:38 No provider procedures requiring assistance completed. Patient did not have IV access bp during this emergency room visit. 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 Exp: bp 11/15/2022. Lot #: [id number]. } Route: IM; Site: right deltoid; 10:38 Follow up: Response: No adverse reaction bp Medication: 08:19 VIS not applicable for this client. bp Outcome: 10:27 Discharge ordered by . [facility] 11:04 Discharged to home ambulatory. bp 11:04 Condition: stable 11:04 Discharge instructions given to patient, Instructed on discharge instructions, follow up and referral plans. medication usage, Demonstrated understanding of instructions, follow-up care, medications, Prescriptions given X 2. 11:05 Patient left the ED. bp Signatures: Dispatcher [employer] EDMS Denzel Guerra PA PA jmm Peltier, Brian, RN RN bp Brianna Martinez RN RN ko1
[2022-05-07 11:11] VITALS: TEMP 98
[2022-05-07 11:12] VITALS: O2SAT 99
[2022-05-07 11:13] VITALS: BP 125/67
== END 2022-05-07 11:05 | disposition home or self-care (01) ==
LOC: ER 07:58
DX: F41.9 Anxiety disorder, unspecified (principal); S91.331A Puncture wound without foreign body, right foot, initial encounter; Z23 Encounter for immunization; Z72.0 Tobacco use
CPT/HCPCS: 90471; 99284

== ENCOUNTER 2022-06-25 12:35 | Emergency (ER) | payer SELFPAY ==
--- OUTSIDE RECORDS SUMMARY | 2022-06-25 12:38 | XMS REPORT | Continuity of Care Document ---
:2000 Author Organization [facility] t Address [address] [place] [address] Care Team Providers Name Role Phone Lidia Simpson RN Attending Clinician Unavailable UNKNOWN, ATTENDING Attending Clinician Unavailable Del Pimentel PA-C Attending Clinician Care, [facility] Urgent Attending Clinician Unavailable Unknown, Attending Attending Clinician Unavailable Doctor Unassigned, [place] Attending Clinician Unavailable Minal Earl MD Attending Clinician MORIS GARCIA Attending Clinician Unavailable Payers Payer Name Policy Type Policy Number Effective Date Expiration Date [facility] [id number] 2016 00:00:00 Problems Condition Condition Condition Status Onset Resolution Last Treating Co mments Source Name Details Category Date Date Treatment Clinician Date Nocturnal Nocturnal Disease Active Uni vers enuresis enuresis 10-09 ity of 00:00: [address] Chronic Chronic Disease Active Univers depressive depressive it y of personalit [place]it [place] disorder y disorder [place] Attention Attention Disease Active Overview: Univers deficit deficit Formattin ity o f hyperactiv hyperactiv g of this [place] ity ity note Medical disorder disorder might be Bran ch (ADHD) (ADHD) different from the original. ICD10 Diagnosis Term Nutrition Internship Utility Allergies, Adverse Reactions, Alerts Allergy Allergy Status Severity Reaction(s) Onset Inactive Treating Comm ents Source Name Type Date Date Clinician NO KNOWN Drug Active Univers ALLERGIE Class ity of S [facility] Social History Social Habit Start Date Stop Date Quantity Comments Source Alcohol intake 2018-06-22 2018-06-22 University of 00:00:00 00:00:00 [facility] Tobacco use and 2017-04-13 2017-04-13 Smokeless tobacco Un iversity of exposure 00:00:00 00:00:00 non-user [facility] Tobacco Comment 2013-03-30 2013-03-30 uncle smokes Univers ity of 00:00:00 00:00:00 around patient [facility] Sex Assigned At 2000 2000 Universit y of 00:00:00 00:00:00 [facility] Smoking Status Start Date Stop Date Source Never smoked tobacco [facility] Medications Ordered Filled Start Stop Current Ordering Indication Dosage Frequency Signature Comments Components Source Medication Medication Date Date Medication? Clinician (SIG) Name Name No known No No known Unive rs medications 8-15 medication it y of 13:11: s [address] No known No Univers medications ity [facility] No known No [facility] No known No Univers medications ity [facility] No known No [facility] Immunizations Ordered Immunization Filled Date Status Comments Sour ce Name Immunization Name Meningococcal 2018-06-22 Completed University of Oligosaccharide 00:00:00 [place] [facility] (groups A, C, Y and Branc h W-135) conjugate vaccine (MCV4O) Meningococcal B, OMV 2018-06-22 Completed Univ ersity of 00:00:00 [facility] Influenza Virus 2018-06-22 Completed Universit y of Vaccine Quad .5 mL IM 00:00:00 [facility] 6+ [facility] Meningococcal 2018-06-22 Completed University of Oligosaccharide 00:00:00 [place] [facility] (groups A, C, Y and Branc h W-135) conjugate vaccine (MCV4O) Meningococcal B, OMV 2018-06-22 Completed Univ ersity of 00:00:00 [facility] Influenza Virus 2018-06-22 Completed Universit y of Vaccine Quad .5 mL IM 00:00:00 [facility] 6+ [facility] Meningococcal 2018-06-22 Completed University of Oligosaccharide 00:00:00 [place] [facility] (groups A, C, Y and Branc h W-135) conjugate vaccine (MCV4O) Meningococcal B, OMV 2018-06-22 Completed Univ ersity of 00:00:00 [facility] Influenza Virus 2018-06-22 Completed Universit y of Vaccine Quad .5 mL IM 00:00:00 [facility] 6+ MO [facility] Meningococcal 2018-06-22 Completed University of Oligosaccharide 00:00:00 [place] [facility] (groups A, C, Y and Branc h W-135) conjugate vaccine (MCV4O) Meningococcal B, OMV 2018-06-22 Completed Univ ersity of 00:00:00 [facility] Influenza Virus 2018-06-22 Completed Universit y of Vaccine Quad .5 mL IM 00:00:00 [facility] 6[facility] Meningococcal 2018-06-22 Completed University of Oligosaccharide 00:00:00 [place] [facility] (groups A, C, Y and Branc h W-135) conjugate vaccine (MCV4O) Meningococcal B, OMV 2018-06-22 Completed Univ ersity of 00:00:00 [facility] Influenza Virus 2018-06-22 Completed Universit y of Vaccine Quad .5 mL IM 00:00:00 [facility] 6[facility] HPV9 2016-07-16 Completed University of 00:00:00 [place] [facility] HPV9 2016-07-16 Completed University of 00:00:00 [facility] HPV9 2016-07-16 Completed University of 00:00:00 [facility] HPV9 2016-07-16 Completed University of 00:00:00 [facility] HPV9 2016-07-16 Completed University of 00:00:00 [facility] HPV9 2015-03-21 Completed University of 00:00:00 [place] [facility] HPV9 2015-03-21 Completed University of 00:00:00 [facility] HPV9 2015-03-21 Completed University of 00:00:00 [facility] HPV9 2015-03-21 Completed University of 00:00:00 [facility] HPV9 2015-03-21 Completed University of 00:00:00 [facility] HPV9 2015-01-17 Completed University of 00:00:00 [facility] HPV9 2015-01-17 Completed University of 00:00:00 [facility] HPV9 2015-01-17 Completed University of 00:00:00 [facility] HPV9 2015-01-17 Completed University of 00:00:00 [facility] HPV9 2015-01-17 Completed University of 00:00:00 [facility] Meningococcal Vaccine 2013-11-08 Completed Uni versity of 00:00:00 [facility] TDAP 2013-11-08 Completed University of 00:00:00 [facility] Varicella 2013-11-08 Completed University of (varivax)(chicken pox) 00:00:[address] [facility] [place] [place] Meningococcal Vaccine 2013-11-08 Completed Uni versity of 00:00:00 [facility] TDAP 2013-11-08 Completed University of 00:00:00 [facility] Varicella 2013-11-08 Completed University of (varivax)(chicken pox) 00:00:[address] [facility] [place] Meningococcal Vaccine 2013-11-08 Completed Uni versity of 00:00:00 [facility] TDAP 2013-11-08 Completed University of 00:00:00 [facility] Varicella 2013-11-08 Completed University of (varivax)(chicken pox) 00:00:[address] [facility] [place] Meningococcal Vaccine 2013-11-08 Completed Uni versity of 00:00:00 [facility] TDAP 2013-11-08 Completed University of 00:00:00 [facility] Varicella 2013-11-08 Completed University of (varivax)(chicken pox) 00:00:[address] [facility] [place] Meningococcal Vaccine 2013-11-08 Completed Uni versity of 00:00:00 [facility] TDAP 2013-11-08 Completed University of 00:00:00 [facility] Varicella 2013-11-08 Completed University of (varivax)(chicken pox) 00:00:[address] [facility] [place] DTAP 2005-09-23 Completed University of 00:00:00 [facility] Hep B, Adol or Pedi 2005-09-23 Completed Unive rsity of Dosage 00:00:00 [facility] MMR 2005-09-23 Completed University of 00:00:00 [facility] HEPATITIS A 2005-09-23 Completed University of 00:00:00 [facility] DTAP 2005-09-23 Completed University of 00:00:00 [facility] Hep B, Adol or Pedi 2005-09-23 Completed Unive rsity of Dosage 00:00:00 [facility] MMR 2005-09-23 Completed University of 00:00:00 [facility] HEPATITIS A 2005-09-23 Completed University of 00:00:00 [facility] DTAP 2005-09-23 Completed University of 00:00:00 [facility] Hep B, Adol or Pedi 2005-09-23 Completed Unive rsity of Dosage 00:00:00 [facility] MMR 2005-09-23 Completed University of 00:00:00 [facility] HEPATITIS A 2005-09-23 Completed University of 00:00:00 [facility] DTAP 2005-09-23 Completed University of 00:00:00 [facility] Hep B, Adol or Pedi 2005-09-23 Completed Unive rsity of Dosage 00:00:00 [facility] MMR 2005-09-23 Completed University of 00:00:00 [facility] HEPATITIS A 2005-09-23 Completed University of 00:00:00 [facility] DTAP 2005-09-23 Completed University of 00:00:00 [facility] Hep B, Adol or Pedi 2005-09-23 Completed Unive rsity of Dosage 00:00:00 [facility] MMR 2005-09-23 Completed University of 00:00:00 [facility] HEPATITIS A 2005-09-23 Completed University of 00:00:00 [facility] Polio (IPV/OPV) 2004-12-12 Completed Universit y of 00:00:00 [facility] DTAP 2004-12-12 Completed University of 00:00:00 [facility] HEPATITIS A 2004-12-12 Completed University of 00:00:00 [facility] MMR 2004-12-12 Completed University of 00:00:00 [facility] Pneumococcal 7 2004-12-12 Completed University of Conjugate, PCV7 00:00:00 [place] [facility] (Prevnar7) Branch Polio (IPV/OPV) 2004-12-12 Completed Universit y of 00:00:00 [facility] DTAP 2004-12-12 Completed University of 00:00:00 [facility] HEPATITIS A 2004-12-12 Completed University of 00:00:00 [facility] MMR 2004-12-12 Completed University of 00:00:00 [facility] Pneumococcal 7 2004-12-12 Completed University of Conjugate, PCV7 00:00:00 [place] [facility] (Prevnar7) Branch Polio (IPV/OPV) 2004-12-12 Completed Universit y of 00:00:00 [facility] DTAP 2004-12-12 Completed University of 00:00:00 [facility] HEPATITIS A 2004-12-12 Completed University of 00:00:00 [facility] MMR 2004-12-12 Completed University of 00:00:00 [facility] Pneumococcal 7 2004-12-12 Completed University of Conjugate, PCV7 00:00:00 [place] [facility] (Prevnar7) [place] Polio (IPV/OPV) 2004-12-12 Completed Universit y of 00:00:00 [facility] DTAP 2004-12-12 Completed University of 00:00:00 [facility] HEPATITIS A 2004-12-12 Completed University of 00:00:00 [facility] MMR 2004-12-12 Completed University of 00:00:00 [facility] Pneumococcal 7 2004-12-12 Completed University of Conjugate, PCV7 00:00:00 [place] [facility] (Prevnar7) Branch Polio (IPV/OPV) 2004-12-12 Completed Universit y of 00:00:00 [facility] DTAP 2004-12-12 Completed University of 00:00:00 [facility] HEPATITIS A 2004-12-12 Completed University of 00:00:00 [facility] MMR 2004-12-12 Completed University of 00:00:00 [facility] Pneumococcal 7 2004-12-12 Completed University of Conjugate, PCV7 00:00:00 [place] [facility] (Prevnar7) Branch DTAP 2004-05-10 Completed University of 00:00:00 [facility] HIB 4 Dose Schedule 2004-05-10 Completed Unive rsity of 00:00:00 [facility] Hep B, Adol or Pedi 2004-05-10 Completed Unive rsity of Dosage 00:00:00 [facility] Pneumococcal 7 2004-05-10 Completed University of Conjugate, PCV7 00:00:00 [place] [facility] (Prevnar7) Branch Polio (IPV/OPV) 2004-05-10 Completed Universit y of 00:00:00 [facility] DTAP 2004-05-10 Completed University of 00:00:00 [facility] HIB 4 Dose Schedule 2004-05-10 Completed Unive rsity of 00:00:00 [facility] Hep B, Adol or Pedi 2004-05-10 Completed Unive rsity of Dosage 00:00:00 [facility] DTAP 2004-05-10 Completed University of 00:00:00 [facility] Pneumococcal 7 2004-05-10 Completed University of Conjugate, PCV7 00:00:00 [facility] ical (Prevnar7) [place] Polio (IPV/OPV) 2004-05-10 Completed Universit y of 00:00:00 [facility] HIB 4 Dose Schedule 2004-05-10 Completed Unive rsity of 00:00:00 [facility] Hep B, Adol or Pedi 2004-05-10 Completed Unive rsity of Dosage 00:00:00 [facility] Pneumococcal 7 2004-05-10 Completed University of Conjugate, PCV7 00:00:00 [facility] (Prevnar7) [place] Polio (IPV/OPV) 2004-05-10 Completed Universit y of 00:00:00 [facility] DTAP 2004-05-10 Completed University of 00:00:00 [facility] HIB 4 Dose Schedule 2004-05-10 Completed Unive rsity of 00:00:00 [facility] Hep B, Adol or Pedi 2004-05-10 Completed Unive rsity of Dosage 00:00:00 [facility] Pneumococcal 7 2004-05-10 Completed University of Conjugate, PCV7 00:00:00 [facility] (Prevnar7) [place] Polio (IPV/OPV) 2004-05-10 Completed Universit y of 00:00:00 [facility] DTAP 2004-05-10 Completed University of 00:00:00 [facility] HIB 4 Dose Schedule 2004-05-10 Completed Unive rsity of 00:00:00 [facility] Hep B, Adol or Pedi 2004-05-10 Completed Unive rsity of Dosage 00:00:00 [facility] Pneumococcal 7 2004-05-10 Completed University of Conjugate, PCV7 00:00:00 [facility] (Prevnar7) [place] Polio (IPV/OPV) 2004-05-10 Completed Universit y of 00:00:00 [facility] Varicella 2001-09-07 Completed University of (varivax)(chicken pox) 00:00:[address] [facility] [place] Varicella 2001-09-07 Completed University of (varivax)(chicken pox) 00:00:[address] [facility] [place] Varicella 2001-09-07 Completed University of (varivax)(chicken pox) 00:00:[address] [facility] [place] Varicella 2001-09-07 Completed University of (varivax)(chicken pox) 00:00:[address] [facility] [place] Varicella 2001-09-07 Completed University of (varivax)(chicken pox) 00:00:[address] [facility] [place] DTAP 2000 Completed University of 00:00:00 [facility] HIB 4 Dose Schedule 2000 Completed Unive rsity of 00:00:00 [facility] Pneumococcal 7 2000 Completed University of Conjugate, PCV7 00:00:00 [place] [facility] (Prevnar7) Branch Polio (IPV/OPV) 2000 Completed Universit y of 00:00:00 [facility] DTAP 2000 Completed University of 00:00:00 [facility] DTAP 2000 Completed University of 00:00:00 [facility] HIB 4 Dose Schedule 2000 Completed Unive rsity of 00:00:00 [facility] Pneumococcal 7 2000 Completed University of Conjugate, PCV7 00:00:00 [place] [facility] (Prevnar7) Branch Polio (IPV/OPV) 2000 Completed Universit y of 00:00:00 [facility] HIB 4 Dose Schedule 2000 Completed Unive rsity of 00:00:00 [facility] Pneumococcal 7 2000 Completed University of Conjugate, PCV7 00:00:00 [place] [facility] (Prevnar7) Branch Polio (IPV/OPV) 2000 Completed Universit y of 00:00:00 [facility] DTAP 2000 Completed University of 00:00:00 [facility] HIB 4 Dose Schedule 2000 Completed Unive rsity of 00:00:00 [facility] Pneumococcal 7 2000 Completed University of Conjugate, PCV7 00:00:00 [place] [facility] (Prevnar7) Branch Polio (IPV/OPV) 2000 Completed Universit y of 00:00:00 [facility] DTAP 2000 Completed University of 00:00:00 [facility] HIB 4 Dose Schedule 2000 Completed Unive rsity of 00:00:00 [facility] Pneumococcal 7 2000 Completed University of Conjugate, PCV7 00:00:00 [place] [facility] (Prevnar7) Branch Polio (IPV/OPV) 2000 Completed Universit y of 00:00:00 [facility] Hep B, Adol or Pedi 2000 Completed Unive rsity of Dosage 00:00:00 [facility] Hep B, Adol or Pedi 2000 Completed Unive rsity of Dosage 00:00:00 [facility] Hep B, Adol or Pedi 2000 Completed Unive rsity of Dosage 00:00:00 [place] [facility] Hep B, Adol or Pedi 2000 Completed Unive rsity of Dosage 00:00:00 [facility] Hep B, Adol or Pedi 2000 Completed Unive rsity of Dosage 00:00:00 [facility] Vital Signs Vital Name Observation Time Observation Value Comments Source Systolic blood 2019-12-17 18:11:00 128 mm[Hg] Univer sity of pressure [facility] Diastolic blood 2019-12-17 18:11:00 85 mm[Hg] Unive rsity of pressure [facility] Heart rate 2019-12-17 18:11:00 110 /min [facility] Body temperature 2019-12-17 18:11:00 36.89 Michelle [facility] Respiratory rate 2019-12-17 18:11:00 16 /min [facility] Body weight 2019-12-17 18:11:00 66.724 kg [facility] Oxygen saturation in 2019-12-17 18:11:00 98 /min [facility] Arterial blood by [facility] Pulse oximetry [place] Procedures Procedure Date / Time Performed Performing Clinician Sourc e XR HAND <3 VW RIGHT 2019-12-17 18:53:34 Del Pimentel [facility] ASSIGNMENT OF BENEFITS 2019-12-17 18:02:08 Doctor Unassigned, No [facility] Name Medical Branch Encounters Start End Encounter Admission Attending Care Care Encounter Source Date/Time Date/Time Type Type Clinicians Facility Department ID 2022-05-06 2022-05-06 Nurse DEL Simpson [id number] Univers 00:00:00 00:00:00 [id number] [facility] [id number] [place] [address] Branch 2020-07-22 2020-07-22 Outpatient R UNKNOWN, [facility] [id number] Univers 08:00:00 08:00:00 ATTENDING ity [facility] 2019-12-17 2019-12-17 Hospital Loren Dickson [id number] Univers 13:45:33 23:59:00 Encounter Del Pediatric [id number] ity of [id number] [place] [id number] [facility] [address] [facility] 2019-12-17 2019-12-17 Urgent Care, [place] [facility] Urgent Dickson [id number] Univers 13:04:27 13:19:27 Care Unknown, Attending Pediatric [id number] ity of [id number] [place] [id number] [facility] [address] [facility] 2019-12-17 2019-12-17 Outpatient R UNKNOWN, [facility] [id number] Univers 13:00:00 13:00:00 [facility] 2019-12-17 2019-12-17 Orders Doctor DEL [id number] Univers 00:00:00 00:00:00 Only Unassigned, HEN[place] [id number] ity of [place] [facility] [id number] [facility] as [id number] [facility] 009 Branch 2019-11-07 2019-11-07 Telephone Dickson Earl [id number] Univers 00:00:00 00:00:00 Minal P Pediatric [id number] ity of [id number] [place] [id number] [facility] Primary [address] [facility] 2019-10-14 2019-10-14 Outpatient R MORIS GARCIA [facility] [id number] Univers 08:40:00 08:40:00 [facility] Results Test Description Test Time Test Comments [...]
[2022-06-25] MEDS ORDERED: IBUPROFEN 400 MG TAB ONE (13:03)
[2022-06-25] MEDS ORDERED: IBUPROFEN 200 MG TAB PO ONE (13:03)
--- NOTE | 2022-06-25 13:48 | RAD REPORT ---
EXAM DESCRIPTION: Keshawnt Pa And Lat (2 Views)06/25/2022 12:57 pm CLINICAL HISTORY: CHEST PAIN COMPARISON: Chest Single View dated 04/06/2022 TECHNIQUE: PA and lateral views of the chest. FINDINGS: The lungs are clear. No pneumothorax or effusion. The cardiomediastinal contours are unrem arkable. IMPRESSION: No acute cardiopulmonary process.
--- NOTE | 2022-06-25 13:48 | RAD REPORT ---
EXAM DESCRIPTION: RAD - Shoulder Left 2 View - 06/25/2022 12:57 pm CLINICAL HISTORY: Pain COMPARISON: None. TECHNIQUE: Internal and external rotation views of the left shoulder were obtained. FINDINGS: There is no fracture or dislocation. AC joint is normal in appearance. No acute or suspici ous findings. IMPRESSION: No acute osseus abnormality of the left shoulder.
--- NOTE | 2022-06-25 14:02 | ER ---
Nurse's Notes [facility] Name: Alfredo Guajardo Age: 21 yrs Sex: Male : 2000 Arrival Date: 06/25/2022 Time: 12:36 Bed 5 Private MD: Diagnosis: Unspecified symptoms and signs involving the musculoskeletal system;Anxiety disorder, unspecified Presentation: 06/25 12:36 Chief complaint: EMS states: Toned out for posterior aspect of left shoulder pain x 2 jl7 years. Reports increased pain with palpation, denies pain with movement, denies pain with inspiration. Coronavirus screen: At this time, the client does not indicate any symptoms associated with coronavirus-19. Ebola Screen: No symptoms or risks identified at this time. Initial Sepsis Screen: Does the patient meet any 2 criteria? No. Patient's initial sepsis screen is negative. Does the patient have a suspected source of infection? No. Patient's initial sepsis screen is negative. Risk Assessment: Do you want to hurt yourself or someone else? Patient reports no desire to harm self or others. Onset of symptoms is unknown. 12:36 Method Of Arrival: Ambulatory [facility] 12:36 Acuity: CHRIS 4 jl7 Triage Assessment: 12:46 General: Appears in no apparent distress. uncomfortable, unkempt, Behavior is calm, jl7 cooperative, appropriate for age. Pain: Complains of pain in left subscapular area Pain currently is 3 out of 10 on a pain scale. Neuro: Level of Consciousness is awake, alert, obeys commands, Oriented to person, place, time, situation. Cardiovascular: Patient's skin is warm and dry. Respiratory: Airway is patent Respiratory effort is even, unlabored, Respiratory pattern is regular, symmetrical. Derm: Skin is pink, warm \T\ dry. Historical: - Allergies: 12:46 No Known Allergies; jl7 - Home Meds: 12:46 None [Active]; jl7 - PMHx: 12:46 adhd; Anxiety; jl7 - Immunization history:: Client reports having NOT received the Covid vaccine. - Social history:: Smoking status: Patient denies any tobacco usage or history of. - Family history:: not pertinent. Screenin:51 [facility] ED Fall Risk Assessment (Adult) History of falling in the last 3 months, jl7 including since admission No falls in past 3 months (0 pts) Confusion or Disorientation No (0 pts) Intoxicated or Sedated No (0 pts) Impaired Gait No (0 pts) Mobility Assist Device Used No (0 pt) Altered Elimination No (0 pt) Score/Fall Risk Level 0 - 2 = Low Risk Oriented to surroundings, Maintained a safe environment. Abuse screen: Denies threats or abuse. Denies injuries from another. Nutritional screening: No deficits noted. Tuberculosis screening: No symptoms or risk factors identified. Assessment: 12:52 Reassessment: pt transported to [facility] via wheelchair. 1 13:51 Reassessment: Patient appears in no apparent distress at this time. No changes from [facility] previously documented assessment. Patient and/or family updated on plan of care and expected duration. Pain level reassessed. Patient is alert, oriented x 3, equal unlabored respirations, skin warm/dry/pink. Vital Signs: 12:36 BP 122 / 80; Pulse 93; Resp 15; Temp 97; Pulse Ox 99% on R/A; Weight 72.57 kg (R); jl7 Height 5 ft. 7 in. (170.18 cm) (R); Pain 3/10; 13:51 BP 119 / 81; Pulse 89; Resp 15; Pulse Ox 97% ; jl7 12:36 Body Mass Index 25.06 (72.57 kg, 170.18 cm) jl7 ED Course: 12:36 Patient arrived in ED. jl7 12:37 Olman Rice MD is Attending Physician. [facility] 12:46 Triage completed. jl7 12:46 Arm band placed on right wrist. Patient placed in an exam room, on a stretcher. jl7 13:49 Uli Bliss, SHANITA is Primary Nurse. jl7 13:51 Patient has correct armband on for positive identification. Placed in gown. Bed in low jl7 position. Call light in reach. Side rails up X 1. Client placed on continuous cardiac and pulse oximetry monitoring. NIBP monitoring applied. 14:01 Jayden Holland MD is Referral Physician. [facility] 14:01 Yo Araujo MD is Referral Physician. [facility] Administered Medications: 13:49 Drug: Motrin (ibuprofen) 600 mg Route: PO; jl7 Medication: 13:51 VIS not applicable for this client. jl7 Outcome: 14:02 Discharge ordered by MD. mendez 14:33 Patient left the ED. ss Signatures: Olman Rice MD MD cha Smirch, Shelby RN RN ss Uli Bliss RN RN jl7 Yee Chanel RN RN vg1
--- NOTE | 2022-06-25 14:02 | EDPHYS ---
Physician Documentation [facility] [place], [place] Name: Alfredo Guajardo Age: 21 yrs Sex: Male : 2000 Arrival Date: 06/25/2022 Time: 12:36 Bed 5 Private MD: DUNG Physician Olman Rice HPI: 06/25 13:47 This 21 yrs old Male presents to ER via Ambulatory with complaints of vanessa Shoulder Pain. 13:47 The patient or guardian complains of decreased range of motion, pain, that is acute. vanessa left shoulder. 13:47 Context: The problem was sustained at an unknown site, resulted from an unknown reason, vanessa The patient reports no decreased range of motion. The patient reports no obvious deformity. Onset: The symptoms/episode began/occurred just prior to arrival. Modifying factors: the symptoms are alleviated by nothing. The symptoms are aggravated by nothing. The patient presents with pain that is acute, with no known mechanism of injury. The symptoms are located in the left scapular area. Historical: - Allergies: 12:46 No Known Allergies; jl7 - Home Meds: 12:46 None [Active]; jl7 - PMHx: 12:46 adhd; Anxiety; jl7 - Immunization history:: Client reports having NOT received the Covid vaccine. - Social history:: Smoking status: Patient denies any tobacco usage or history of. - Family history:: not pertinent. ROS: 13:47 Constitutional: Negative for fever, chills, and weight loss, Eyes: Negative for injury, vanessa pain, redness, and discharge, ENT: Negative for injury, pain, and discharge, Neck: Negative for injury, pain, and swelling, Cardiovascular: Negative for chest pain, palpitations, and edema, Respiratory: Negative for shortness of breath, cough, wheezing, and pleuritic chest pain, Abdomen/GI: Negative for abdominal pain, nausea, vomiting, diarrhea, and constipation, : Negative for injury, bleeding, discharge, and swelling, MS/Extremity: Negative for injury and deformity, Skin: Negative for injury, rash, and discoloration, Neuro: Negative for headache, weakness, numbness, tingling, and seizure, Psych: Negative for depression, anxiety, suicide ideation, homicidal ideation, and hallucinations, Allergy/Immunology: Negative for hives, rash, and allergies, Endocrine: Negative for neck swelling, polydipsia, polyuria, polyphagia, and marked weight changes, Hematologic/Lymphatic: Negative for swollen nodes, abnormal bleeding, and unusual bruising. 13:47 Back: Positive for decreased range of motion. Exam: 13:47 Constitutional: This is a well developed, well nourished patient who is awake, alert, vanessa and in no acute distress. Head/Face: Normocephalic, atraumatic. Eyes: Pupils equal round and reactive to light, extra-ocular motions intact. Lids and lashes normal. Conjunctiva and sclera are non-icteric and not injected. Cornea within normal limits. Periorbital areas with no swelling, redness, or edema. ENT: Nares patent. No nasal discharge, no septal abnormalities noted. Tympanic membranes are normal and external auditory canals are clear. Oropharynx with no redness, swelling, or masses, exudates, or evidence of obstruction, uvula midline. Mucous membranes moist. Neck: Trachea midline, no thyromegaly or masses palpated, and no cervical lymphadenopathy. Supple, full range of motion without nuchal rigidity, or vertebral point tenderness. No Meningismus. Chest/axilla: Normal chest wall appearance and motion. Nontender with no deformity. No lesions are appreciated. Cardiovascular: Regular rate and rhythm with a normal S1 and S2. No gallops, murmurs, or rubs. Normal PMI, no JVD. No pulse deficits. Respiratory: Lungs have equal breath sounds bilaterally, clear to auscultation and percussion. No rales, rhonchi or wheezes noted. No increased work of breathing, no retractions or nasal flaring. Abdomen/GI: Soft, non-tender, with normal bowel sounds. No distension or tympany. No guarding or rebound. No evidence of tenderness throughout. Back: No spinal tenderness. No costovertebral tenderness. Full range of motion. Male : Normal genitalia with no discharge or lesions. Skin: Warm, dry with normal turgor. Normal color with no rashes, no lesions, and no evidence of cellulitis. MS/ Extremity: Pulses equal, no cyanosis. Neurovascular intact. Full, normal range of motion. Neuro: Awake and alert, GCS 15, oriented to person, place, time, and situation. Cranial nerves II-XII grossly intact. Motor strength 5/5 in all extremities. Sensory grossly intact. Cerebellar exam normal. Normal gait. Psych: Awake, alert, with orientation to person, place and time. Behavior, mood, and affect are within normal limits. 13:47 ECG was reviewed by the Attending Physician. Vital Signs: 12:36 BP 122 / 80; Pulse 93; Resp 15; Temp 97; Pulse Ox 99% on R/A; Weight 72.57 kg (R); jl7 Height 5 ft. 7 in. (170.18 cm) (R); Pain 3/10; 13:51 BP 119 / 81; Pulse 89; Resp 15; Pulse Ox 97% ; jl7 12:36 Body Mass Index 25.06 (72.57 kg, 170.18 cm) jl7 MDM: 12:37 Patient medically screened. [facility] 13:55 Differential diagnosis: glenoid fracture, DJD, tendonitis, arthritis. Data reviewed: [facility] vital signs, nurses notes, EKG, radiologic studies, plain films. Consideration of Admission/Observation Escalation of care including admission/observation considered. I considered the following discharge prescriptions or medication management in the emergency department Medications were administered in the Emergency Department. See MAR. Test considered but Not performed: Labs: NO CBC, COMP MET. Care significantly affected by the following chronic conditions: ADHD, ANXIETY. 06/25 12:38 [facility] Order name: Chest Pa And Lat (2 Views) XRAY [facility] 06/25 12:38 Order name: EKG; Complete Time: 12:39 [facility] 06/25 13:48 [facility]: [facility] 06/25 13:49 Order name: [facility] 06/25 12:38 Order name: EKG - Nurse/Tech; Complete Time: 13:34 [facility] EC:47 Rate is 92 beats/min. Rhythm is regular. QRS [place] is Normal. [place] interval is normal. QRS vanessa interval is normal. QT interval is normal. No Q waves. T waves are Normal. No ST changes noted. Clinical impression: NSR w/ Non-specific ST/T Changes and No evidence of ischemia. Interpreted by me. Reviewed by me. Administered Medications: 13:49 Drug: Motrin (ibuprofen) 600 mg Route: PO; jl7 Disposition Summary: 06/25/22 14:02 Discharge Ordered Location: Home vanessa Problem: new vanessa Symptoms: have improved vanessa Condition: Stable vanessa Diagnosis - Unspecified symptoms and signs involving the musculoskeletal system vanessa - Anxiety disorder, unspecified vanessa Followup: vanessa - With: Private Physician - When: 2 - 3 days - Reason: Recheck today's complaints, Continuance of care, Re-evaluation by your physician Followup: vanessa - With: - When: 2 - 3 days - Reason: Recheck today's complaints, Re-evaluation by your physician Followup: vanessa - With: - When: 2 - 3 days - Reason: Recheck today's complaints, Re-evaluation by your physician Discharge Instructions: - Discharge Summary Sheet vanessa - Panic Attack vanessa - Musculoskeletal Pain vanessa - Panic Attack, [id number] vanessa - Supporting Someone With Anxiety vanessa Forms: - Medication Reconciliation Form vanessa - Thank You Letter vanessa - Antibiotic Education vanessa - Prescription Opioid Use [facility] Prescriptions: - Hydroxyzine HCl 25 mg Oral Tablet - take 1 tablet by ORAL route every 6 hours As needed; 30 tablet; Refills: 0, vanessa Product Selection Permitted - Ibuprofen 600 mg Oral Tablet - take 1 tablet by ORAL route every 6 hours As needed take with food; 20 tablet; [facility] Refills: 0, Product Selection Permitted Signatures: Dispatcher [employer] Olman Nick MD MD cha Leal, Jahala RN RN jl7
[2022-06-25 14:44] VITALS: TEMP 97
[2022-06-25 14:45] VITALS: BP 119/81; O2SAT 97
--- NOTE | 2022-06-26 16:32 | EKG ---
Test Date: 2022-06-25 Test Time: 13:17:32 Vice President Education: DANIELA MEASUREMENT RESULTS: Intervals: Rate: 92 WY: 168 QRSD: 112 QT: 324 QTc: 400 [place]: P: 60 WY: 168 QRS: 81 T: 63 INTERPRETIVE STATEMENTS: Normal sinus rhythm Incomplete right bundle branch block Borderline ECG Compared to ECG 04/06/2022 16:50:31 Sinus tachycardia no longer present Electronically Signed On 06-26-22 16:29:34 MARK UP DESIGNER by Lizandro Schmidt
== END 2022-06-25 14:33 | disposition home or self-care (01) ==
LOC: ER 12:35
DX: R29.91 Unspecified symptoms and signs involving the musculoskeletal system (principal); F41.9 Anxiety disorder, unspecified
CPT/HCPCS: 71046; 93005; 99282

== ENCOUNTER 2022-12-17 08:40 | Emergency (ER) | payer SELFPAY ==
--- OUTSIDE RECORDS SUMMARY | 2022-12-17 08:45 | XMS REPORT | Continuity of Care Document ---
:2000 Author Organization [facility] t Address [address] [facility] [address] [place] [id number] Care Team Providers Name Role Phone Pcp, Patient Does Not Have A Primary Care Physician [phone] Allyn Clements LMSW Attending Clinician LIBIA RDZ Attending Clinician Unavailable Libia Rdz MD Attending Clinician [phone] Lidia Simpson RN Attending Clinician Unavailable UNKNOWN, ATTENDING Attending Clinician Unavailable Del Pimentel PA-C Attending Clinician Care, [facility] Adult Urgent Attending Clinician Unavailable Unknown, Attending Attending Clinician Unavailable Doctor Unassigned, Mascot Attending Clinician Unavailable Minal Earl MD Attending Clinician MORIS GARCIA Attending Clinician Unavailable Payers Payer Name Policy Type Policy Number Effective Date Expiration Date Jacquie patricia [facility] [id number] 2016 00:00:00 Problems Condition Condition Condition Status Onset Resolution Last Treating Co mments Source Name Details Category Date Date Treatment Clinician Date Nocturnal Nocturnal Disease Active Uni vers enuresis enuresis -08 ity of 00:00: [place] 00 Medical Branch Chronic Chronic Disease Active Univers depressive depressive it y of [place] disorder [place] disorder [place] dical Branch Attention Attention Disease Active Overview: Univers deficit deficit Formattin ity o f hyperactiv hyperactiv g of this [place] ity ity note Medical disorder disorder might be Bran ch (ADHD) (ADHD) different from the original. 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 Allergies, Adverse Reactions, Alerts Allergy Allergy Status Severity Reaction(s) Onset Inactive Treating Comm ents Source Name Type Date Date Clinician NO KNOWN Drug Active Univers ALLERGIE Class ity of S [facility] Social History Social Habit Start Date Stop Date Quantity Comments Source Exposure to 2022-08-31 2022-09-10 Not sure [facility]ly [facility]-CoV-2 00:00:00 15:05:00 [facility] (event) Branch Alcohol intake 2022-09-10 2022-09-10 Current drinker of Un iversity of 00:00:00 00:00:00 alcohol (finding) [facility] edical [place] Tobacco Comment 2022-09-10 2022-09-10 uncle smokes around University of 00:00:00 00:00:00 patient [facility] Alcohol Comment 2022-09-10 2022-09-10 occasionally Univers ity of 00:00:00 00:00:00 [facility] Tobacco use and 2022-09-10 2022-09-10 Smokeless tobacco Un iversity of exposure 00:00:00 00:00:00 non-user [facility] Sex Assigned At 2000 2000 Universit y of 00:00:00 00:00:00 [facility] Smoking Status Start Date Stop Date Source Never smoked tobacco [facility] Medications Ordered Filled Start Stop Current Ordering Indication Dosage Frequency Signature Comments Components Source Medication Medication Date Date Medication? Clinician (SIG) Name Name hydrOXYzine Yes [id number] 25mg Take 1 Univers 25 mg 5-10 tablet by ity of tablet 00:00: mouth [place] 00 every 6 Medical (six) Branch hours as needed for Itching. hydrOXYzine 2022-0 Yes [id number] 25mg Take 1 Univers 25 mg 5-10 tablet by ity of tablet 00:00: mouth [place] 00 every 6 Medical (six) Branch hours as needed for Itching. hydrOXYzine 2022-0 Yes [id number] 25mg Take 1 Univers 25 mg 5-10 tablet by ity of tablet 00:00: mouth [place] 00 every 6 Medical (six) Branch hours as needed for Itching. hydrOXYzine 2022-0 Yes [id number] 25mg Take 1 Univers 25 mg 5-10 tablet by ity of tablet 00:00: mouth [place] 00 every 6 Medical (six) Branch hours as needed for Itching. hydrOXYzine 2022-0 Yes [id number] 25mg Take 1 Univers 25 mg 5-10 tablet by ity of tablet 00:00: mouth [place] 00 every 6 Medical (six) Branch hours as needed for Itching. hydrOXYzine 0 2022- No TAKE 1 Uni vers 25 mg 2-23 05-10 TABLET BY ity of tablet 00:00: 00:00 MOUTH [place] 00 :00 EVERY 6 Medical HOURS Branch NEEDED hydrOXYzine 0 2022- No TAKE 1 Uni vers 25 mg 2-23 05-10 TABLET BY ity of tablet 00:00: 00:00 MOUTH [place] 00 :00 EVERY 6 Medical HOURS Branch NEEDED No known No No known Unive rs medications 8-15 medication it y of 13:11: s [address] No known No Univers medications ity [facility] No known [facility] Immunizations Ordered Immunization Filled Date Status Comments Sour ce Name Immunization Name Meningococcal 2018-06-22 Completed University of Oligosaccharide 00:00:00 [place] Med ical (groups A, C, Y and Branc h W-135) conjugate vaccine (MCV4O) Meningococcal B, OMV 2018-06-22 Completed Univ ersity of 00:00:00 [facility] Influenza Virus 2018-06-22 Completed Universit y of Vaccine Quad .5 mL IM 00:00:00 [facility] [facility] 6+ MO Branch Meningococcal 2018-06-22 Completed University of Oligosaccharide 00:00:00 [place] [facility] ical (groups A, C, Y and Branc h W-135) conjugate vaccine (MCV4O) Meningococcal B, OMV 2018-06-22 Completed Univ ersity of 00:00:00 [facility] Influenza Virus 2018-06-22 Completed Universit y of Vaccine Quad .5 mL IM 00:00:00 [facility] [facility] 6+ MO Branch Meningococcal 2018-06-22 Completed University of Oligosaccharide 00:00:00 [place] [facility] ical (groups A, C, Y and Branc h W-135) conjugate vaccine (MCV4O) Meningococcal B, OMV 2018-06-22 Completed Univ ersity of 00:00:00 [facility] Influenza Virus 2018-06-22 Completed Universit y of Vaccine Quad .5 mL IM 00:00:00 [facility] 6+ MO Branch Meningococcal 2018-06-22 Completed University of Oligosaccharide 00:00:00 [place] [facility] ical (groups A, C, Y and Branc h W-135) conjugate vaccine (MCV4O) Meningococcal B, OMV 2018-06-22 Completed Univ ersity of 00:00:00 [facility] Influenza Virus 2018-06-22 Completed Universit y of Vaccine Quad .5 mL IM 00:00:00 [facility] 6+ MO Branch Meningococcal 2018-06-22 Completed University of Oligosaccharide 00:00:00 [place] [facility] ical (groups A, C, Y and Branc h W-135) conjugate vaccine (MCV4O) Meningococcal B, OMV 2018-06-22 Completed Univ ersity of 00:00:00 [facility] Influenza Virus 2018-06-22 Completed Universit y of Vaccine Quad .5 mL IM 00:00:00 [facility] 6+ MO Branch Meningococcal 2018-06-22 Completed University of Oligosaccharide 00:00:00 [place] [facility] ical (groups A, C, Y and Branc h W-135) conjugate vaccine (MCV4O) Meningococcal B, OMV 2018-06-22 Completed Univ ersity of 00:00:00 [facility] Influenza Virus 2018-06-22 Completed Universit y of Vaccine Quad .5 mL IM 00:00:00 [facility] 6+ MO Branch Meningococcal 2018-06-22 Completed University of Oligosaccharide 00:00:00 [place] [facility] ical (groups A, C, Y and Branc h W-135) conjugate vaccine (MCV4O) Meningococcal B, OMV 2018-06-22 Completed Univ ersity of 00:00:00 [facility] Influenza Virus 2018-06-22 Completed Universit y of Vaccine Quad .5 mL IM 00:00:00 [facility] [facility] 6+ MO Branch Meningococcal 2018-06-22 Completed University of Oligosaccharide 00:00:00 [place] [facility] ical (groups A, C, Y and Branc h W-135) conjugate vaccine (MCV4O) Meningococcal B, OMV 2018-06-22 Completed Univ ersity of 00:00:00 [facility] Influenza Virus 2018-06-22 Completed Universit y of Vaccine Quad .5 mL IM 00:00:00 [facility] 6+ MO Branch Meningococcal 2018-06-22 Completed University of Oligosaccharide 00:00:00 [place] [facility] ical (groups A, C, Y and Branc h W-135) conjugate vaccine (MCV4O) Meningococcal B, OMV 2018-06-22 Completed Univ ersity of 00:00:00 [facility] Influenza Virus 2018-06-22 Completed Universit y of Vaccine Quad .5 mL IM 00:00:00 [facility] 6+ MO Branch Meningococcal 2018-06-22 Completed University of Oligosaccharide 00:00:00 [place] [facility] ical (groups A, C, Y and Branc h W-135) conjugate vaccine (MCV4O) Meningococcal B, OMV 2018-06-22 Completed Univ ersity of 00:00:00 [facility] Influenza Virus 2018-06-22 Completed Universit y of Vaccine Quad .5 mL IM 00:00:00 [facility] [facility] 6+ MO Branch HPV9 2016-07-16 Completed University of 00:00:00 [facility] Branch HPV9 2016-07-16 Completed University of 00:00:00 [place] [facility] HPV9 2016-07-16 Completed University of 00:00:00 [place] [facility] HPV9 2016-07-16 Completed University of 00:00:00 [place] [facility] HPV9 2016-07-16 Completed University of 00:00:00 [place] [facility] HPV9 2016-07-16 Completed University of 00:00:00 [place] [facility] HPV9 2016-07-16 Completed University of 00:00:00 [place] [facility] HPV9 2016-07-16 Completed University of 00:00:00 [place] [facility] HPV9 2016-07-16 Completed University of 00:00:00 [place] [facility] HPV9 2016-07-16 Completed University of 00:00:00 [place] [facility] HPV9 2015-03-21 Completed University of 00:00:00 [place] [facility] HPV9 2015-03-21 Completed University of 00:00:00 [place] [facility] HPV9 2015-03-21 Completed University of 00:00:00 [place] [facility] HPV9 2015-03-21 Completed University of 00:00:00 [place] [facility] HPV9 2015-03-21 Completed University of 00:00:00 [place] [facility] HPV9 2015-03-21 Completed University of 00:00:00 [place] [facility] HPV9 2015-03-21 Completed University of 00:00:00 [facility] HPV9 2015-03-21 Completed University of 00:00:00 [facility] HPV9 2015-03-21 Completed University of 00:00:00 [facility] Branch HPV9 2015-03-21 Completed University of 00:00:00 [facility] HPV9 2015-01-17 Completed University of 00:00:00 [facility] HPV9 2015-01-17 Completed University of 00:00:00 [facility] HPV9 2015-01-17 Completed University of 00:00:00 [facility] HPV9 2015-01-17 Completed University of 00:00:00 [facility] HPV9 2015-01-17 Completed University of 00:00:00 [facility] HPV9 2015-01-17 Completed University of 00:00:00 [facility] Branch HPV9 2015-01-17 Completed University of 00:00:00 [facility] HPV9 2015-01-17 Completed University of 00:00:00 [facility] HPV9 2015-01-17 Completed University of 00:00:00 [facility] HPV9 2015-01-17 Completed University of 00:00:00 [facility] Meningococcal Vaccine 2013-11-08 Completed Uni versity of 00:00:00 [facility] TDAP 2013-11-08 Completed University of 00:00:00 [facility] Varicella 2013-11-08 Completed University of (varivax)(chicken pox) 00:00:00 [facility] Meningococcal Vaccine 2013-11-08 Completed Uni versity of 00:00:00 [facility] TDAP 2013-11-08 Completed University of 00:00:00 [facility] Varicella 2013-11-08 Completed University of (varivax)(chicken pox) 00:00:00 [facility] Meningococcal Vaccine 2013-11-08 Completed Uni versity of 00:00:00 [facility] TDAP 2013-11-08 Completed University of 00:00:00 [facility] Varicella 2013-11-08 Completed University of (varivax)(chicken pox) 00:00:00 [facility] Meningococcal Vaccine 2013-11-08 Completed Uni versity of 00:00:00 [facility] TDAP 2013-11-08 Completed University of 00:00:00 [facility] Varicella 2013-11-08 Completed University of (varivax)(chicken pox) 00:00:00 [facility] Meningococcal Vaccine 2013-11-08 Completed Uni versity of 00:00:00 [facility] TDAP 2013-11-08 Completed University of 00:00:00 [facility] Varicella 2013-11-08 Completed University of (varivax)(chicken pox) 00:00:00 [facility] Meningococcal Vaccine 2013-11-08 Completed Uni versity of 00:00:00 [facility] TDAP 2013-11-08 Completed University of 00:00:00 [facility] Varicella 2013-11-08 Completed University of (varivax)(chicken pox) 00:00:00 [facility] Meningococcal Vaccine 2013-11-08 Completed Uni versity of 00:00:00 [facility] Meningococcal Vaccine 2013-11-08 Completed [facility] 00:00:00 [facility] TDAP 2013-11-08 Completed University of 00:00:00 [facility] Varicella 2013-11-08 Completed University of (varivax)(chicken pox) 00:00:00 [facility] Meningococcal Vaccine 2013-11-08 Completed Uni versity of 00:00:00 [facility] TDAP 2013-11-08 Completed University of 00:00:00 [facility] Varicella 2013-11-08 Completed University of (varivax)(chicken pox) 00:00:00 [facility] Varicella 2013-11-08 Completed University of (varivax)(chicken pox) 00:00:00 [facility] Meningococcal Vaccine 2013-11-08 Completed Uni versity of 00:00:00 [facility] TDAP 2013-11-08 Completed University of 00:00:00 [facility] Varicella 2013-11-08 Completed University of (varivax)(chicken pox) 00:00:00 [facility] DTAP 2005-09-23 Completed University of 00:00:00 [facility] Hep B, Adol or Pedi 2005-09-23 Completed Unive rsity of Dosage 00:00:00 [facility] MMR 2005-09-23 Completed University of 00:00:00 [facility] HEPATITIS A 2005-09-23 Completed University of 00:00:00 [facility] DTAP 2005-09-23 Completed University of 00:00:00 [place] [facility] Hep B, Adol or Pedi 2005-09-23 Completed Unive rsity of Dosage 00:00:00 [place] [facility] MMR 2005-09-23 Completed University of 00:00:00 [place] [facility] HEPATITIS A 2005-09-23 Completed University of 00:00:00 [facility] DTAP 2005-09-23 Completed University of 00:00:00 [place] [facility] Hep B, Adol or Pedi 2005-09-23 Completed Unive rsity of Dosage 00:00:00 [place] [facility] MMR 2005-09-23 Completed University of 00:00:00 [place] [facility] HEPATITIS A 2005-09-23 Completed University of 00:00:00 [place] [facility] HEPATITIS A 2005-09-23 Completed University of 00:00:00 [facility] DTAP 2005-09-23 Completed University of 00:00:00 [facility] Hep B, Adol or Pedi 2005-09-23 Completed Unive rsity of Dosage 00:00:00 [facility] MMR 2005-09-23 Completed University of 00:00:00 [place] [facility] HEPATITIS A 2005-09-23 Completed University of 00:00:00 [facility] DTAP 2005-09-23 Completed University of 00:00:00 [place] [facility] Hep B, Adol or Pedi 2005-09-23 Completed Unive rsity of Dosage 00:00:00 [place] [facility] MMR 2005-09-23 Completed University of 00:00:00 [facility] HEPATITIS A 2005-09-23 Completed University of 00:00:00 [facility] DTAP 2005-09-23 Completed University of 00:00:00 [place] [facility] Hep B, Adol or Pedi 2005-09-23 Completed Unive rsity of Dosage 00:00:00 [facility] MMR 2005-09-23 Completed University of 00:00:00 [place] [facility] HEPATITIS A 2005-09-23 Completed University of 00:00:00 [place] [facility] DTAP 2005-09-23 Completed University of 00:00:00 [place] [facility] Hep B, Adol or Pedi 2005-09-23 Completed Unive rsity of Dosage 00:00:00 [place] [facility] MMR 2005-09-23 Completed University of 00:00:00 [place] [facility] HEPATITIS A 2005-09-23 Completed University of 00:00:00 [facility] DTAP 2005-09-23 Completed University of 00:00:00 [facility] DTAP 2005-09-23 Completed University of 00:00:00 [facility] Hep B, Adol or Pedi 2005-09-23 Completed Unive rsity of Dosage 00:00:00 [facility] MMR 2005-09-23 Completed University of 00:00:00 [facility] Hep B, Adol or Pedi 2005-09-23 Completed Unive rsity of Dosage 00:00:00 [facility] MMR 2005-09-23 Completed University of 00:00:00 [facility] HEPATITIS A 2005-09-23 Completed University of 00:00:00 [facility] DTAP 2005-09-23 Completed University of 00:00:00 [facility] Hep B, Adol or Pedi 2005-09-23 Completed Unive rsity of Dosage 00:00:00 [facility] MMR 2005-09-23 Completed University of 00:00:00 [facility] HEPATITIS A 2005-09-23 Completed University of 00:00:00 [facility] Polio (IPV/OPV) 2004-12-12 Completed Universit y of 00:00:00 [facility] DTAP 2004-12-12 Completed University of 00:00:00 [facility] HEPATITIS A 2004-12-12 Completed University of 00:00:00 [facility] MMR 2004-12-12 Completed University of 00:00:00 [facility] Pneumococcal 7 2004-12-12 Completed University of Conjugate, PCV7 00:00:00 [facility] ical (Prevnar7) Branch Polio (IPV/OPV) 2004-12-12 Completed Universit y of 00:00:00 [facility] DTAP 2004-12-12 Completed University of 00:00:00 [facility] HEPATITIS A 2004-12-12 Completed University of 00:00:00 [facility] MMR 2004-12-12 Completed University of 00:00:00 [facility] Pneumococcal 7 2004-12-12 Completed University of Conjugate, PCV7 00:00:00 [facility] ical (Prevnar7) Branch Polio (IPV/OPV) 2004-12-12 Completed Universit y of 00:00:00 [facility] DTAP 2004-12-12 Completed University of 00:00:00 [facility] DTAP 2004-12-12 Completed University of 00:00:00 [facility] HEPATITIS A 2004-12-12 Completed University of 00:00:00 [facility] HEPATITIS A 2004-12-12 Completed University of 00:00:00 [facility] MMR 2004-12-12 Completed University of 00:00:00 [facility] Pneumococcal 7 2004-12-12 Completed University of Conjugate, PCV7 00:00:00 [place] [facility] (Prevnar7) Branch Polio (IPV/OPV) 2004-12-12 Completed Universit y of 00:00:00 [facility] DTAP 2004-12-12 Completed University of 00:00:00 [facility] MMR 2004-12-12 Completed University of 00:00:00 [facility] HEPATITIS A 2004-12-12 Completed University of 00:00:00 [facility] MMR 2004-12-12 Completed University of 00:00:00 [facility] Pneumococcal 7 2004-12-12 Completed University of Conjugate, PCV7 00:00:00 [place] [facility] (Prevnar7) Branch Polio (IPV/OPV) 2004-12-12 Completed Universit y of 00:00:00 [facility] DTAP 2004-12-12 Completed University of 00:00:00 [facility] Pneumococcal 7 2004-12-12 Completed University of Conjugate, PCV7 00:00:00 [place] [facility] (Prevnar7) Branch HEPATITIS A 2004-12-12 Completed University of 00:00:00 [facility] MMR 2004-12-12 Completed University of 00:00:00 [facility] Pneumococcal 7 2004-12-12 Completed University of Conjugate, PCV7 00:00:00 [facility] ical (Prevnar7) Branch Polio (IPV/OPV) 2004-12-12 Completed Universit y of 00:00:00 [facility] Polio (IPV/OPV) 2004-12-12 Completed Universit y of 00:00:00 [facility] DTAP 2004-12-12 Completed University of 00:00:00 [facility] HEPATITIS A 2004-12-12 Completed University of 00:00:00 [facility] MMR 2004-12-12 Completed University of 00:00:00 [facility] Pneumococcal 7 2004-12-12 Completed University of Conjugate, PCV7 00:00:00 [facility] ical (Prevnar7) Branch Polio (IPV/OPV) 2004-12-12 Completed Universit y of 00:00:00 [facility] DTAP 2004-12-12 Completed University of 00:00:00 [facility] HEPATITIS A 2004-12-12 Completed University of 00:00:00 [facility] MMR 2004-12-12 Completed University of 00:00:00 [facility] Pneumococcal 7 2004-12-12 Completed University of Conjugate, PCV7 00:00:00 [place] [facility] ical (Prevnar7) [place] Polio (IPV/OPV) 2004-12-12 Completed Universit y of 00:00:00 [facility] DTAP 2004-12-12 Completed University of 00:00:00 [facility] HEPATITIS A 2004-12-12 Completed University of 00:00:00 [facility] MMR 2004-12-12 Completed University of 00:00:00 [facility] Pneumococcal 7 2004-12-12 Completed University of Conjugate, PCV7 00:00:00 [facility] ica (Prevnar7) [place] Polio (IPV/OPV) 2004-12-12 Completed Universit y of 00:00:00 [facility] DTAP 2004-12-12 Completed University of 00:00:00 [facility] HEPATITIS A 2004-12-12 Completed University of 00:00:00 [facility] MMR 2004-12-12 Completed University of 00:00:00 [facility] Pneumococcal 7 2004-12-12 Completed University of Conjugate, PCV7 00:00:00 [facility] ical (Prevnar7) [place] DTAP 2004-05-10 Completed University of 00:00:00 [facility] HIB 4 Dose Schedule 2004-05-10 Completed Unive rsity of 00:00:00 [facility] Hep B, Adol or Pedi 2004-05-10 Completed Unive rsity of Dosage 00:00:00 [facility] Pneumococcal 7 2004-05-10 Completed University of Conjugate, PCV7 00:00:00 [place] [facility] (Prevnar7) Branch Polio (IPV/OPV) 2004-05-10 Completed Universit y of 00:00:00 [facility] DTAP 2004-05-10 Completed University of 00:00:00 [facility] HIB 4 Dose Schedule 2004-05-10 Completed Unive rsity of 00:00:00 [facility] Hep B, Adol or Pedi 2004-05-10 Completed Unive rsity of Dosage 00:00:00 [facility] DTAP 2004-05-10 Completed University of 00:00:00 [facility] Pneumococcal 7 2004-05-10 Completed University of Conjugate, PCV7 00:00:00 [place] [facility] (Prevnar7) Branch Polio (IPV/OPV) 2004-05-10 Completed Universit y of 00:00:00 [facility] HIB 4 Dose Schedule 2004-05-10 Completed Unive rsity of 00:00:00 [facility] [facility] DTAP 2004-05-10 Completed University of 00:00:00 [facility] HIB 4 Dose Schedule 2004-05-10 Completed Unive rsity of 00:00:00 [facility] Hep B, Adol or Pedi 2004-05-10 Completed Unive rsity of Dosage 00:00:00 [facility] Pneumococcal 7 2004-05-10 Completed University of Conjugate, PCV7 00:00:00 [place] [facility] (Prevnar7) [facility] Polio (IPV/OPV) 2004-05-10 Completed Universit y of 00:00:00 [facility] Hep B, Adol or Pedi 2004-05-10 Completed Unive rsity of Dosage 00:00:00 [facility] DTAP 2004-05-10 Completed University of 00:00:00 [facility] HIB 4 Dose Schedule 2004-05-10 Completed Unive rsity of 00:00:00 [facility] Hep B, Adol or Pedi 2004-05-10 Completed Unive rsity of Dosage 00:00:00 [facility] Pneumococcal 7 2004-05-10 Completed University of Conjugate, PCV7 00:00:00 [place] [facility] (Prevnar7) [facility] Polio (IPV/OPV) 2004-05-10 Completed Universit y of 00:00:00 [facility] Pneumococcal 7 2004-05-10 Completed University of Conjugate, PCV7 00:00:00 [place] [facility] (Prevnar7) [facility] DTAP 2004-05-10 Completed University of 00:00:00 [facility] HIB 4 Dose Schedule 2004-05-10 Completed Unive rsity of 00:00:00 [facility] Hep B, Adol or Pedi 2004-05-10 Completed Unive rsity of Dosage 00:00:00 [facility] Pneumococcal 7 2004-05-10 Completed University of Conjugate, PCV7 00:00:00 [place] [facility] (Prevnar7) [facility] Polio (IPV/OPV) 2004-05-10 Completed Universit y of 00:00:00 [facility] Polio (IPV/OPV) 2004-05-10 Completed Universit y of 00:00:00 [facility] DTAP 2004-05-10 Completed University of 00:00:00 [facility] HIB 4 Dose Schedule 2004-05-10 Completed Unive rsity of 00:00:00 [facility] Hep B, Adol or Pedi 2004-05-10 Completed Unive rsity of Dosage 00:00:00 [facility] Pneumococcal 7 2004-05-10 Completed University of Conjugate, PCV7 00:00:00 [facility] ical (Prevnar7) [place] Polio (IPV/OPV) 2004-05-10 Completed Universit y of 00:00:00 [facility] DTAP 2004-05-10 Completed University of 00:00:00 [facility] HIB 4 Dose Schedule 2004-05-10 Completed Unive rsity of 00:00:00 [facility] Hep B, Adol or Pedi 2004-05-10 Completed Unive rsity of Dosage 00:00:00 [facility] Pneumococcal 7 2004-05-10 Completed University of Conjugate, PCV7 00:00:00 [facility] ical (Prevnar7) Branch Polio (IPV/OPV) 2004-05-10 Completed Universit y of 00:00:00 [facility] DTAP 2004-05-10 Completed University of 00:00:00 [facility] HIB 4 Dose Schedule 2004-05-10 Completed Unive rsity of 00:00:00 [facility] Hep B, Adol or Pedi 2004-05-10 Completed Unive rsity of Dosage 00:00:00 [facility] Pneumococcal 7 2004-05-10 Completed University of Conjugate, PCV7 00:00:00 [facility] ical (Prevnar7) Branch Polio (IPV/OPV) 2004-05-10 Completed Universit y of 00:00:00 [facility] DTAP 2004-05-10 Completed University of 00:00:00 [facility] HIB 4 Dose Schedule 2004-05-10 Completed Unive rsity of 00:00:00 [facility] Hep B, Adol or Pedi 2004-05-10 Completed Unive rsity of Dosage 00:00:00 [facility] Pneumococcal 7 2004-05-10 Completed University of Conjugate, PCV7 00:00:00 [facility] ical (Prevnar7) Branch Polio (IPV/OPV) 2004-05-10 Completed Universit y of 00:00:00 [facility] Varicella 2001-09-07 Completed University of (varivax)(chicken pox) 00:00:00 [facility] Varicella 2001-09-07 Completed University of (varivax)(chicken pox) 00:00:00 [facility] Varicella 2001-09-07 Completed University of (varivax)(chicken pox) 00:00:00 [facility] Varicella 2001-09-07 Completed University of (varivax)(chicken pox) 00:00:00 [facility] Varicella 2001-09-07 Completed University of (varivax)(chicken pox) 00:00:00 [facility] Varicella 2001-09-07 Completed University of (varivax)(chicken pox) 00:00:00 [facility] Varicella 2001-09-07 Completed University of (varivax)(chicken pox) 00:00:00 [facility] Varicella 2001-09-07 Completed University of (varivax)(chicken pox) 00:00:00 [facility] Varicella 2001-09-07 Completed University of (varivax)(chicken pox) 00:00:00 [facility] Varicella 2001-09-07 Completed University of (varivax)(chicken pox) 00:00:00 [facility] DTAP 2000 Completed University of 00:00:00 [facility] HIB 4 Dose Schedule 2000 Completed Unive rsity of 00:00:00 [facility] Pneumococcal 7 2000 Completed University of Conjugate, PCV7 00:00:00 [facility] ical (Prevnar7) Branch Polio (IPV/OPV) 2000 Completed Universit y of 00:00:00 [facility] DTAP 2000 Completed University of 00:00:00 [facility] DTAP 2000 Completed University of 00:00:00 [facility] HIB 4 Dose Schedule 2000 Completed Unive rsity of 00:00:00 [facility] Pneumococcal 7 2000 Completed University of Conjugate, PCV7 00:00:00 [place] [facility] (Prevnar7) Branch Polio (IPV/OPV) 2000 Completed Universit y of 00:00:00 [facility] HIB 4 Dose Schedule 2000 Completed Unive rsity of 00:00:00 [facility] DTAP 2000 Completed University of 00:00:00 [facility] HIB 4 Dose Schedule 2000 Completed Unive rsity of 00:00:00 [facility] Pneumococcal 7 2000 Completed University of Conjugate, PCV7 00:00:00 [place] [facility] (Prevnar7) Branch Polio (IPV/OPV) 2000 Completed Universit y of 00:00:00 [facility] DTAP 2000 Completed University of 00:00:00 [facility] HIB 4 Dose Schedule 2000 Completed Unive rsity of 00:00:00 [facility] Pneumococcal 7 2000 Completed University of Conjugate, PCV7 00:00:00 [place] [facility] (Prevnar7) Branch Polio (IPV/OPV) 2000 Completed Universit y of 00:00:00 [facility] Pneumococcal 7 2000 Completed University of Conjugate, PCV7 00:00:00 [place] [facility] (Prevnar7) Branch DTAP 2000 Completed University of 00:00:00 [facility] HIB 4 Dose Schedule 2000 Completed Unive rsity of 00:00:00 [facility] Pneumococcal 7 2000 Completed University of Conjugate, PCV7 00:00:00 [place] [facility] (Prevnar7) Branch Polio (IPV/OPV) 2000 Completed Universit y of 00:00:00 [facility] Polio (IPV/OPV) 2000 Completed Universit y of 00:00:00 [facility] DTAP 2000 Completed University of 00:00:00 [facility] HIB 4 Dose Schedule 2000 Completed Unive rsity of 00:00:00 [facility] Pneumococcal 7 2000 Completed University of Conjugate, PCV7 00:00:00 [place] [facility] (Prevnar7) Branch Polio (IPV/OPV) 2000 Completed Universit y of 00:00:00 [facility] DTAP 2000 Completed University of 00:00:00 [facility] HIB 4 Dose Schedule 2000 Completed Unive rsity of 00:00:00 [facility] Pneumococcal 7 2000 Completed University of Conjugate, PCV7 00:00:00 [place] [facility] (Prevnar7) Branch Polio (IPV/OPV) 2000 Completed Universit y of 00:00:00 [facility] DTAP 2000 Completed University of 00:00:00 [facility] HIB 4 Dose Schedule 2000 Completed Unive rsity of 00:00:00 [facility] Pneumococcal 7 2000 Completed University of Conjugate, PCV7 00:00:00 [place] [facility] (Prevnar7) Branch Polio (IPV/OPV) 2000 Completed Universit y of 00:00:00 [facility] DTAP 2000 Completed University of 00:00:00 [facility] HIB 4 Dose Schedule 2000 Completed Unive rsity of 00:00:00 [facility] Pneumococcal 7 2000 Completed University of Conjugate, PCV7 00:00:00 [place] [facility] (Prevnar7) Branch Polio (IPV/OPV) 2000 Completed Universit y of 00:00:00 [facility] Hep B, Adol or Pedi 2000 Completed Unive rsity of Dosage 00:00:00 [facility] Hep B, Adol or Pedi 2000 Completed Unive rsity of Dosage 00:00:00 [facility] Hep B, Adol or Pedi 2000 Completed Unive rsity of Dosage 00:00:00 [facility] Hep B, Adol or Pedi 2000 Completed Unive rsity of Dosage 00:00:00 [facility] Hep B, Adol or Pedi 2000 Completed Unive rsity of Dosage 00:00:00 [facility] Hep B, Adol or Pedi 2000 Completed Unive rsity of Dosage 00:00:00 [facility] Hep B, Adol or Pedi 2000 Completed Unive rsity of Dosage 00:00:00 [facility] Hep B, Adol or Pedi 2000 Completed Unive rsity of Dosage 00:00:00 [facility] Hep B, Adol or Pedi 2000 Completed Unive rsity of Dosage 00:00:00 [facility] Hep B, Adol or Pedi 2000 Completed Unive rsity of Dosage 00:00:00 [facility] Vital Signs Vital Name Observation Time Observation Value Comments Source Systolic blood 2022-09-10 20:12:00 127 mm[Hg] Univer sity of pressure [facility] Diastolic blood 2022-09-10 20:12:00 71 mm[Hg] Unive rsity of pressure [facility] Heart rate 2022-09-10 20:12:00 85 /min [facility] Body temperature 2022-09-10 20:12:00 36.83 Michelle [facility] 2022-09-10 20:12:00 18 /min [facility] height 2022-09-10 20:12:00 174 cm [facility] Body weight 2022-09-10 20:12:00 77.429 kg [facility] BMI 2022-09-10 20:12:00 25.57 kg/m2 [facility] Oxygen saturation in 2022-09-10 20:12:00 99 /min University of Arterial blood by [facility] Pulse oximetry Branch Respiratory rate 2019-12-17 18:11:00 16 /min [facility] weight 2019-12-17 18:11:00 66.724 kg [facility] Oxygen saturation in 2019-12-17 18:11:00 98 /min University of Arterial blood by [facility] Pulse oximetry Branch Systolic blood 2019-12-17 18:11:00 128 mm[Hg] Univer sity of pressure [facility] Diastolic blood 2019-12-17 18:11:00 85 mm[Hg] Unive rsity of pressure [facility] Heart rate 2019-12-17 18:11:00 110 /min [facility] Body temperature 2019-12-17 18:11:00 36.89 Michelle [facility] Procedures Procedure Date / Time Performed Performing Clinician Sourc e XR HAND <3 VW RIGHT 2019-12-17 18:53:34 Del Pimentel ty of [facility] ASSIGNMENT OF BENEFITS 2019-12-17 18:02:08 Doctor Unassigned, No [facility] Encounters Start End Encounter Admission Attending Care Care Encounter Source Date/Time Date/Time Type Type Clinicians Facility Department ID 2022-09-16 2022-09-16 Patient Tyree [facility] [id number] Univers 00:00:00 00:00:00 Outreach Allyn Sr [facility] [id number] i ty of [place] [id number] Markos as JAMIL?BLEA [id number] [address] MEDICAL OFFICE BUILDING 2022-09-10 2022-09-10 Outpatient R [facility] [id number] Univers 15:00:00 16:07:06 , LIBIA nas y of [facility] 2022-09-10 2022-09-10 Office [facility] [id number] Univers 15:00:00 16:07:06 Visit , Libia [facility] [id number] ity of [facility] [id number] Markos as JAMIL?BLEA [phone] [address] MEDICAL OFFICE BUILDING 2022-05-06 2022-05-06 Nurse DEL Simpson [id number] Univers 00:00:00 00:00:00 Triage Lidia AGUILLON [id number] ity of [facility] [id number] Markos as [phone] [place] [address] Branch 2020-07-22 2020-07-22 Outpatient R UNKNOWN, [facility] [id number] Univers 08:00:00 08:00:00 ATTENDING ity of [facility] 2019-12-17 2019-12-17 [facility] Dickson Pimentel [id number] Univers 13:45:33 23:59:00 Encounter Del [place] [id number] ity [id number] [id number] [facility] Primary [facility] [facility] 2019-12-17 2019-12-17 Urgent Care, [place] [facility]gent Dickson [id number] Univers 13:04:27 13:19:27 Care Unknown, Attending Pediatric [id number] 10 ity [id number] [id number] [facility] Primary [address] [facility] 2019-12-17 2019-12-17 Outpatient R UNKNOWN, [facility] [id number] Univers 13:00:00 13:00:00 ATTENDING ity [facility] 2019-12-17 2019-12-17 Orders Doctor DEL [id number] Univers 00:00:00 00:00:00 Only Unassigned, HENNA [id number] ity of [facility] [id number] Markos as [phone] [place] [address] Branch 2019-11-07 2019-11-07 Telephone Dickson Earl [id number] Univers 00:00:00 00:00:00 Minal P Pediatric [id number] ity [id number] [id number] [facility] [address] [facility] 2019-10-14 2019-10-14 Outpatient R MORIS GARICA [facility] [id number] Univers 08:40:00 08:40:00 [facility] Results Test Description Test Time Test Comments Results Result Sour e Comments XR HAND <3 VW 2019-12-17 Normal exam. Universi ty of RIGHT 20:19:53 EXAM: XR HAND <3 [place] [facility] VW RIGHT HISTORY: Branch right hand pain COMPARISON: None FINDINGS: Imaging of the hand demonstrates no erosions, subluxations or fractures.Joint spaces are preserved. [facility], [facility] Results Inft User - 12/17/2019 3:20 PM CDTEXAM:XR HAND <3 VW RIGHTHISTORY:righ t hand pain COMPARISON:NoneFI NDINGS: Imaging of the hand demonstrates no erosions, subluxations or fractures.Joint spaces are preserved.IMPRESS IONNormal exam.
--- NOTE | 2022-12-17 09:38 | EDPHYS ---
Physician Documentation [facility] Name: Alfredo Guajardo Age: 22 yrs Sex: Male : 2000 Arrival Date: 12/17/2022 Time: 08:40 Bed 5 Private MD: DUNG Physician Olman Rice HPI: 12/17 08:43 This 22 yrs old Male presents to ER via Unassigned with complaints of Anxiety. sb4 08:43 Onset: The symptoms/episode began/occurred this morning. Associated signs and symptoms: sb4 The patient has no apparent associated signs or symptoms. Modifying factors: The patient symptoms are alleviated by nothing, the patient symptoms are aggravated by nothing. The patient has experienced similar episodes in the past, several times, but today's symptoms are worse. The patient has not recently seen a physician. patient states he woke up with an anxiety attack. he is not sure what brings them on. he took his prescribed hydroxyzine [employer] which is somewhat helping. he does not take any daily medication for his anxiety nor does he see a psychiatrist. he denies chest pain, sob, fever, chills, nausea, vomiting. Historical: - Allergies: 08:43 No Known Allergies; bp - PMHx: 08:43 adhd; Anxiety; bp - Immunization history:: Adult Immunizations up to date. - Social history:: Smoking status: Patient denies any tobacco usage or history of. ROS: 08:44 Constitutional: Negative for fever, chills, and weight loss. sb4 08:44 Psych: Positive for anxiety, Negative for auditory hallucinations, visual hallucinations, homicidal ideation, suicidal ideation. 08:44 All other systems are negative. Exam: 08:44 Head/Face: Normocephalic, atraumatic. Eyes: Extra-ocular motions intact. Periorbital sb4 areas with no swelling, redness, or edema. Chest/axilla: Normal chest wall appearance and motion. Nontender with no deformity. No lesions are appreciated. Cardiovascular: Regular rate and rhythm with a normal S1 and S2. Back: No spinal tenderness. No costovertebral tenderness. Full range of motion. Skin: Warm, dry with normal turgor. Normal color with no rashes, no lesions, and no evidence of cellulitis. MS/ Extremity: Pulses equal, no cyanosis. Neurovascular intact. Full, normal range of motion. 08:44 Constitutional: The patient appears alert, awake, anxious. 08:44 Psych: Exam negative for hallucinations, delusions, inappropriate behavior, psychosis, paranoia, Behavior/mood is anxious. Vital Signs: 08:42 BP 122 / 86; Pulse 105; Resp 20; Temp 98; Pulse Ox 100% ; bp 09:00 BP 118 / 86; Pulse 70; Resp 16; Temp 98.3(O); Pulse Ox 97% on R/A; nj1 09:57 BP 117 / 76; Pulse 82; Resp 16; Pulse Ox 100% ; bp MDM: 08:42 Patient medically screened. sb4 08:44 Differential diagnosis: anxiety attack, hyperventilation, drug abuse, suicidal sb4 ideation, depression. 08:46 ED course: patient presents feeling very anxious. he took his hydroxyzine before EMS sb4 brought him in and states it is helping. he declines any further treatment at this time, would just like to try and relax. 09:35 Data reviewed: vital signs, nurses notes, and as a result, I will discharge patient. sb4 Test considered but Not performed: Labs: not indicated, vitals stable, no suspected underlying cause. Care significantly affected by the following chronic conditions: anxiety. Counseling: I had a detailed discussion with the patient and/or guardian regarding: the historical points, exam findings, and any diagnostic results supporting the discharge/admit diagnosis, the need for outpatient follow up, a psychiatrist, to return to the emergency department if symptoms worsen or persist or if there are any questions or concerns that arise at home. Administered Medications: No medications were administered Disposition Summary: 12/17/22 09:38 Discharge Ordered Location: Home sb4 Problem: an acute exacerbation sb4 Symptoms: are resolved sb4 Condition: Stable sb4 Diagnosis - Anxiety Attack sb4 Followup: sb4 - With: Yo Araujo MD - When: 2 - 3 days - Reason: Recheck today's complaints, Re-evaluation by your physician Discharge Instructions: - Discharge Summary Sheet sb4 - Panic Attack, [id number] sb4 - Managing Anxiety, Adult sb4 Forms: - Medication Reconciliation Form sb4 - Thank You Letter sb4 - Antibiotic Education sb4 - Prescription Opioid Use sb4 - Patient Portal Instructions sb4 - Leadership Thank You Letter sb4 Signatures: Deepak Fajardo RN RN bp Nina Guevara, PA-C PA-C sb4
--- NOTE | 2022-12-17 09:38 | ER ---
Nurse's Notes [facility] Name: Alfredo Guajardo Age: 22 yrs Sex: Male : 2000 Arrival Date: 12/17/2022 Time: 08:40 Bed 5 Private MD: Diagnosis: Anxiety Attack Presentation: 12/17 08:42 Chief complaint: EMS states: ANXIETY ATTACK AT HOME. Coronavirus screen: At this time, bp the client does not indicate any symptoms associated with coronavirus-19. Ebola Screen: No symptoms or risks identified at this time. Initial Sepsis Screen: Does the patient meet any 2 criteria? HR > 90 bpm. No. Patient's initial sepsis screen is negative. Does the patient have a suspected source of infection? No. Patient's initial sepsis screen is negative. Risk Assessment: Do you want to hurt yourself or someone else? Patient reports no desire to harm self or others. Onset of symptoms was December 17, 2022 at 08:00. 08:42 Method Of Arrival: EMS: [facility] bp 08:42 Acuity: CHRIS 4 bp Triage Assessment: 08:43 General: Appears in no apparent distress. Behavior is cooperative, appropriate for age, bp anxious. Pain: Denies pain. EENT: No deficits noted. Neuro: Level of Consciousness is awake, alert, obeys commands, Oriented to Appropriate for age. Cardiovascular: Rhythm is sinus tachycardia. Respiratory: No deficits noted. GI: No signs and/or symptoms were reported involving the gastrointestinal system. : No signs and/or symptoms were reported regarding the genitourinary system. Derm: No deficits noted. Musculoskeletal: No deficits noted. Historical: - Allergies: 08:43 No Known Allergies; bp - PMHx: 08:43 adhd; Anxiety; bp - Immunization history:: Adult Immunizations up to date. - Social history:: Smoking status: Patient denies any tobacco usage or history of. Screenin:01 [facility] ED Fall Risk Assessment (Adult) Score/Fall Risk Level 0 - 2 = Low Risk nj1 Oriented to surroundings, Maintained a safe environment, Hourly rounding (assess needs \T\ fall precautionary measures) done. Abuse screen: Denies threats or abuse. Denies injuries from another. Nutritional screening: On. Tuberculosis screening: No symptoms or risk factors identified. Assessment: 09:58 Reassessment: PT DC HOME AMBULATORY. bp Vital Signs: 08:42 BP 122 / 86; Pulse 105; Resp 20; Temp 98; Pulse Ox 100% ; bp 09:00 BP 118 / 86; Pulse 70; Resp 16; Temp 98.3(O); Pulse Ox 97% on R/A; nj1 09:57 BP 117 / 76; Pulse 82; Resp 16; Pulse Ox 100% ; bp ED Course: 08:41 Patient arrived in ED. bp 08:41 Izzy Workman, RN is Primary Nurse. nj1 08:42 Nina Guevara PA-C is PHCP. sb4 08:42 Olman Rice MD is Attending Physician. sb4 08:43 Triage completed. bp 08:43 Arm band placed on. bp 09:01 Patient has correct armband on for positive identification. Bed in low position. Call nj1 light in reach. Provided Education on: fall precautions, call light. 09:37 Yo Araujo MD is Referral Physician. sb4 09:58 No provider procedures requiring assistance completed. Patient did not have IV access bp during this emergency room visit. Administered Medications: No medications were administered Medication: 09:01 VIS not applicable for this client. nj1 Outcome: 09:38 Discharge ordered by . sb4 09:58 Discharged to home ambulatory. bp 09:58 Condition: stable 09:58 Discharge instructions given to patient, Instructed on discharge instructions, follow up and referral plans. Demonstrated understanding of instructions, follow-up care. 09:59 Patient left the ED. bp Signatures: Deepak Fajardo RN RN bp Nina Guevara PA-C PA-C sb4 Izzy Workman, SHANITA RN nj1
[2022-12-17 10:04] VITALS: TEMP 98.3
[2022-12-17 10:05] VITALS: BP 117/76; O2SAT 100
== END 2022-12-17 09:59 | disposition home or self-care (01) ==
LOC: ER 08:40
DX: F41.0 Panic disorder [episodic paroxysmal anxiety] (principal)

== ENCOUNTER 2022-12-21 06:30 | Emergency (ER) | payer SELFPAY ==
--- OUTSIDE RECORDS SUMMARY | 2022-12-21 06:34 | XMS REPORT | Continuity of Care Document ---
:2000 Author Organization [facility] t Address [address] [facility] [address] [place] [id number] Care Team Providers Name Role Phone Pcp, Patient Does Not Have A Primary Care Physician [phone] Allyn Clements LMSW Attending Clinician LIBIA RDZ Attending Clinician Unavailable Libia Rdz MD Attending Clinician [phone] Lidia Simpson RN Attending Clinician Unavailable UNKNOWN, ATTENDING Attending Clinician Unavailable Del Pimentel PA-C Attending Clinician Care, Piotr Adult Urgent Attending Clinician Unavailable Unknown, Attending Attending Clinician Unavailable Doctor Unassigned, [place] Attending Clinician Unavailable Minal Earl MD Attending Clinician MORIS GARCIA Attending Clinician Unavailable Payers Payer Name Policy Type Policy Number Effective Date Expiration Date Jacquie patricia [facility] STAR [id number] 2016 00:00:00 Problems Condition Condition Condition Status Onset Resolution Last Treating Co mments Source Name Details Category Date Date Treatment Clinician Date Nocturnal Nocturnal Disease Active Uni vers enuresis enuresis -08 ity of 00:00: [place] 00 Medical Branch Chronic Chronic Disease Active Univers depressive depressive it y of [place]it [place] disorder y disorder Mn dical Branch Attention Attention Disease Active Overview: Univers deficit deficit Formattin ity o f hyperactiv hyperactiv g of this [place] ity ity note Medical disorder disorder might be Bran ch (ADHD) (ADHD) different from the original. 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 Allergies, Adverse Reactions, Alerts Allergy Allergy Status Severity Reaction(s) Onset Inactive Treating Comm ents Source Name Type Date Date Clinician NO KNOWN Drug Active Univers ALLERGIE Class ity of S [facility] Social History Social Habit Start Date Stop Date Quantity Comments Source Exposure to 2022-08-31 2022-09-10 Not sure [facility]-CoV-2 00:00:00 15:05:00 [facility] (event) Branch Alcohol intake 2022-09-10 2022-09-10 Current drinker of Un iversity of 00:00:00 00:00:00 alcohol (finding) [facility] edical [place] Tobacco Comment 2022-09-10 2022-09-10 uncle smokes around University of 00:00:00 00:00:00 patient [facility] Alcohol Comment 2022-09-10 2022-09-10 occasionally Univers ity of 00:00:00 00:00:00 [facility] Tobacco use and 2022-09-10 2022-09-10 Smokeless tobacco Un iversity of exposure 00:00:00 00:00:00 non-user [facility] Sex Assigned At 2000 2000 Universit y of 00:00:00 00:00:00 [facility] Smoking Status Start Date Stop Date Source Never smoked tobacco [facility] Medications Ordered Filled Start Stop Current Ordering Indication Dosage Frequency Signature Comments Components Source Medication Medication Date Date Medication? Clinician (SIG) Name Name hydrOXYzine Yes [id number] 25mg Take 1 Univers 25 mg 5-10 tablet by ity of tablet 00:00: mouth [place] 00 every 6 Medical (six) Branch hours as needed for Itching. hydrOXYzine 2022-0 Yes [id number] 25mg Take 1 Univers 25 mg 5-10 tablet by ity of tablet 00:00: mouth [place] 00 every 6 Medical (six) Branch hours as needed for Itching. hydrOXYzine 2022-0 Yes [id number] 25mg Take 1 Univers 25 mg 5-10 tablet by ity of tablet 00:00: mouth [place] 00 every 6 Medical (six) Branch hours as needed for Itching. hydrOXYzine 2022-0 Yes [id number] 25mg Take 1 Univers 25 mg 5-10 tablet by ity of tablet 00:00: mouth [place] 00 every 6 Medical (six) Branch hours as needed for Itching. hydrOXYzine 2022-0 Yes [id number] 25mg Take 1 Univers 25 mg 5-10 [...] 8-15 medication it y of 13:11: s [address] No known No Univers medications ity [facility] known [facility] Immunizations Ordered Immunization Filled Date Status Comments Sour ce Name Immunization Name Meningococcal 2018-06-22 Completed University of Oligosaccharide 00:00:00 [place] Med ical (groups A, C, Y and Branc h W-135) conjugate vaccine (MCV4O) Meningococcal B, OMV 2018-06-22 Completed Univ ersity of 00:00:00 [facility] Influenza Virus 2018-06-22 Completed Universit y of Vaccine Quad .5 mL IM 00:00:00 [place] [facility] 6+ MO Branch Meningococcal 2018-06-22 Completed University of Oligosaccharide 00:00:00 [place] Med ical (groups A, C, Y and Branc h W-135) conjugate vaccine (MCV4O) Meningococcal B, OMV 2018-06-22 Completed Univ ersity of 00:00:00 [facility] Influenza Virus 2018-06-22 Completed Universit y of Vaccine Quad .5 mL IM 00:00:00 [place] [facility] 6+ MO Branch Meningococcal 2018-06-22 Completed University of Oligosaccharide 00:00:00 [place] [facility] ical (groups A, C, Y and Branc h W-135) conjugate vaccine (MCV4O) Meningococcal B, OMV 2018-06-22 Completed Univ ersity of 00:00:00 [facility] Influenza Virus 2018-06-22 Completed Universit y of Vaccine Quad .5 mL IM 00:00:00 [place] [facility] 6+ MO Branch Meningococcal 2018-06-22 Completed University of Oligosaccharide 00:00:00 [place] Med ical (groups A, C, Y and Branc h W-135) conjugate vaccine (MCV4O) Meningococcal B, OMV 2018-06-22 Completed Univ ersity of 00:00:00 [facility] Influenza Virus 2018-06-22 Completed Universit y of Vaccine Quad .5 mL IM 00:00:00 [place] [facility] 6+ MO Branch Meningococcal 2018-06-22 Completed University of Oligosaccharide 00:00:00 [place] Med ical (groups A, C, Y and Branc h W-135) conjugate vaccine (MCV4O) Meningococcal B, OMV 2018-06-22 Completed Univ ersity of 00:00:00 [facility] Influenza Virus 2018-06-22 Completed Universit y of Vaccine Quad .5 mL IM 00:00:00 [place] [facility] 6+ MO Branch Meningococcal 2018-06-22 Completed University of Oligosaccharide 00:00:00 [place] Med ical (groups A, C, Y and Branc h W-135) conjugate vaccine (MCV4O) Meningococcal B, OMV 2018-06-22 Completed Univ ersity of 00:00:00 [facility] Influenza Virus 2018-06-22 Completed Universit y of Vaccine Quad .5 mL IM 00:00:00 [place] [facility] 6+ MO Branch Meningococcal 2018-06-22 Completed University of Oligosaccharide 00:00:00 [place] Med ical (groups A, C, Y and Branc h W-135) conjugate vaccine (MCV4O) Meningococcal B, OMV 2018-06-22 Completed Univ ersity of 00:00:00 [facility] Influenza Virus 2018-06-22 Completed Universit y of Vaccine Quad .5 mL IM 00:00:00 [place] [facility] 6+ MO Branch Meningococcal 2018-06-22 Completed University of Oligosaccharide 00:00:00 [place] Med ical (groups A, C, Y and Branc h W-135) conjugate vaccine (MCV4O) Meningococcal B, OMV 2018-06-22 Completed Univ ersity of 00:00:00 [facility] Influenza Virus 2018-06-22 Completed Universit y of Vaccine Quad .5 mL IM 00:00:00 [place] [facility] 6+ MO Branch Meningococcal 2018-06-22 Completed University of Oligosaccharide 00:00:00 [place] [facility] ical (groups A, C, Y and Branc h W-135) conjugate vaccine (MCV4O) Meningococcal B, OMV 2018-06-22 Completed Univ ersity of 00:00:00 [facility] Influenza Virus 2018-06-22 Completed Universit y of Vaccine Quad .5 mL IM 00:00:00 [place] [facility] 6+ MO Branch Meningococcal 2018-06-22 Completed University of Oligosaccharide 00:00:00 [place] Med ical (groups A, C, Y and Branc h W-135) conjugate vaccine (MCV4O) Meningococcal B, OMV 2018-06-22 Completed Univ ersity of 00:00:00 [facility] Influenza Virus 2018-06-22 Completed Universit y of Vaccine Quad .5 mL IM 00:00:00 [place] [facility] 6+ MO Branch HPV9 2016-07-16 Completed University of 00:00:00 [facility] Branch HPV9 2016-07-16 Completed University of 00:00:00 [place] [facility] HPV9 2016-07-16 Completed University of 00:00:00 [place] [facility] HPV9 2016-07-16 Completed University of 00:00:00 [place] [facility] HPV9 2016-07-16 Completed University of 00:00:00 [place] [facility] HPV9 2016-07-16 Completed University of 00:00:00 [place] [facility] HPV9 2016-07-16 Completed University of 00:00:00 [place] [facility] HPV9 2016-07-16 Completed University of 00:00:00 [place] [facility] HPV9 2016-07-16 Completed University of 00:00:00 [place] [facility] HPV9 2016-07-16 Completed University of 00:00:00 [place] [facility] HPV9 2015-03-21 Completed University of 00:00:00 [place] [facility] HPV9 2015-03-21 Completed University of 00:00:00 [place] [facility] HPV9 2015-03-21 Completed University of 00:00:00 [place] [facility] HPV9 2015-03-21 Completed University of 00:00:00 [place] [facility] HPV9 2015-03-21 Completed University of 00:00:00 [place] [facility] HPV9 2015-03-21 Completed University of 00:00:00 [place] [facility] HPV9 2015-03-21 Completed University of 00:00:00 [facility] HPV9 2015-03-21 Completed University of 00:00:00 [facility] HPV9 2015-03-21 Completed University of 00:00:00 [facility] Branch HPV9 2015-03-21 Completed University of 00:00:00 [facility] Branch HPV9 2015-01-17 Completed University of 00:00:00 [facility] HPV9 2015-01-17 Completed University of 00:00:00 [facility] Branch HPV9 2015-01-17 Completed University of 00:00:00 [facility] Branch HPV9 2015-01-17 Completed University of 00:00:00 [facility] HPV9 2015-01-17 Completed University of 00:00:00 [facility] HPV9 2015-01-17 Completed University of 00:00:00 [facility] Branch HPV9 2015-01-17 Completed University of 00:00:00 [facility] HPV9 2015-01-17 Completed University of 00:00:00 [facility] HPV9 2015-01-17 Completed University of 00:00:00 [facility] HPV9 2015-01-17 Completed University of 00:00:00 [facility] Meningococcal Vaccine 2013-11-08 Completed Uni versity of 00:00:00 [facility] TDAP 2013-11-08 Completed University of 00:00:00 [facility] Varicella 2013-11-08 Completed University of (varivax)(chicken pox) 00:00:00 [facility] [place] [facility] Meningococcal Vaccine 2013-11-08 Completed Uni versity of 00:00:00 [facility] TDAP 2013-11-08 Completed University of 00:00:00 [facility] Varicella 2013-11-08 Completed University of (varivax)(chicken pox) 00:00:00 [facility] [place] [facility] Meningococcal Vaccine 2013-11-08 Completed Uni versity of 00:00:00 [facility] TDAP 2013-11-08 Completed University of 00:00:00 [facility] Varicella 2013-11-08 Completed University of (varivax)(chicken pox) 00:00:00 [facility] [place] [facility] Meningococcal Vaccine 2013-11-08 Completed Uni versity of 00:00:00 [facility] TDAP 2013-11-08 Completed University of 00:00:00 [facility] Varicella 2013-11-08 Completed University of (varivax)(chicken pox) 00:00:00 [facility] [place] [facility] Meningococcal Vaccine 2013-11-08 Completed Uni versity of 00:00:00 [facility] TDAP 2013-11-08 Completed University of 00:00:00 [facility] Varicella 2013-11-08 Completed University of (varivax)(chicken pox) 00:00:00 [facility] [place] [facility] Meningococcal Vaccine 2013-11-08 Completed Uni versity of 00:00:00 [facility] TDAP 2013-11-08 Completed University of 00:00:00 [facility] Varicella 2013-11-08 Completed University of (varivax)(chicken pox) 00:00:00 [facility] [place] [facility] Meningococcal Vaccine 2013-11-08 Completed Uni versity of 00:00:00 [facility] Meningococcal Vaccine 2013-11-08 Com[facility] 00:00:00 [facility] TDAP 2013-11-08 Completed University of 00:00:00 [facility] Varicella 2013-11-08 Completed University of (varivax)(chicken pox) 00:00:00 [facility] [place] [facility] Meningococcal Vaccine 2013-11-08 Completed Uni versity of 00:00:00 [facility] TDAP 2013-11-08 Completed University of 00:00:00 [facility] Varicella 2013-11-08 Completed University of (varivax)(chicken pox) 00:00:00 [facility] [place] [facility] Varicella 2013-11-08 Completed University of (varivax)(chicken pox) 00:00:00 [facility] [place] [facility] Meningococcal Vaccine 2013-11-08 Completed Uni versity of 00:00:00 [facility] TDAP 2013-11-08 Completed University of 00:00:00 [facility] Varicella 2013-11-08 Completed University of (varivax)(chicken pox) 00:00:00 [facility] [place] [facility] DTAP 2005-09-23 Completed University of 00:00:00 [facility] Hep B, Adol or Pedi 2005-09-23 Completed Unive rsity of Dosage 00:00:00 [facility] MMR 2005-09-23 Completed University of 00:00:00 [facility] HEPATITIS A 2005-09-23 Completed University of 00:00:00 [facility] DTAP 2005-09-23 Completed University of 00:00:00 [place] [facility] Hep B, Adol or Pedi 2005-09-23 Completed Unive rsity of Dosage 00:00:00 [place] [facility] MMR 2005-09-23 Completed University of 00:00:00 [place] [facility] HEPATITIS A 2005-09-23 Completed University of 00:00:00 [facility] Branch DTAP 2005-09-23 Completed University of 00:00:00 [place] [facility] Hep B, Adol or Pedi 2005-09-23 Completed Unive rsity of Dosage 00:00:00 [place] [facility] MMR 2005-09-23 Completed University of 00:00:00 [place] [facility] HEPATITIS A 2005-09-23 Completed University of 00:00:00 [place] [facility] HEPATITIS A 2005-09-23 Completed University of 00:00:00 [facility] Branch DTAP 2005-09-23 Completed University of 00:00:00 [facility] Branch Hep B, Adol or Pedi 2005-09-23 Completed Unive rsity of Dosage 00:00:00 [facility] Branch MMR 2005-09-23 Completed University of 00:00:00 [place] [facility] HEPATITIS A 2005-09-23 Completed University of 00:00:00 [facility] Branch DTAP 2005-09-23 Completed University of 00:00:00 [place] [facility] Hep B, Adol or Pedi 2005-09-23 Completed Unive rsity of Dosage 00:00:00 [place] [facility] MMR 2005-09-23 Completed University of 00:00:00 [facility] Branch HEPATITIS A 2005-09-23 Completed University of 00:00:00 [facility] Branch DTAP 2005-09-23 Completed University of 00:00:00 [place] [facility] Hep B, Adol or Pedi 2005-09-23 Completed Unive rsity of Dosage 00:00:00 [facility] Branch MMR 2005-09-23 Completed University of 00:00:00 [place] [facility] HEPATITIS A 2005-09-23 Completed University of 00:00:00 [place] [facility] DTAP 2005-09-23 Completed University of 00:00:00 [place] [facility] Hep B, Adol or Pedi 2005-09-23 Completed Unive rsity of Dosage 00:00:00 [place] [facility] MMR 2005-09-23 Completed University of 00:00:00 [place] [facility] HEPATITIS A 2005-09-23 Completed University of 00:00:00 [facility] DTAP 2005-09-23 Completed University of 00:00:00 [facility] Branch DTAP 2005-09-23 Completed University of 00:00:00 [facility] Branch Hep B, Adol or Pedi 2005-09-23 Completed Unive rsity of Dosage 00:00:00 [facility] Branch MMR 2005-09-23 Completed University of 00:00:00 [facility] Branch Hep B, Adol or Pedi 2005-09-23 Completed Unive rsity of Dosage 00:00:00 [facility] Branch MMR 2005-09-23 Completed University of 00:00:00 [facility] Branch HEPATITIS A 2005-09-23 Completed University of 00:00:00 [facility] Branch DTAP 2005-09-23 Completed University of 00:00:00 [facility] Branch Hep B, Adol or Pedi 2005-09-23 Completed Unive rsity of Dosage 00:00:00 [facility] MMR 2005-09-23 Completed University of 00:00:00 [facility] HEPATITIS A 2005-09-23 Completed University of 00:00:00 [facility] Polio (IPV/OPV) 2004-12-12 Completed Universit y of 00:00:00 [facility] DTAP 2004-12-12 Completed University of 00:00:00 [facility] HEPATITIS A 2004-12-12 Completed University of 00:00:00 [facility] MMR 2004-12-12 Completed University of 00:00:00 [facility] Pneumococcal 7 2004-12-12 Completed University of Conjugate, PCV7 00:00:00 [facility] [place] [facility] ical (Prevnar7) Branch Polio (IPV/OPV) 2004-12-12 Completed Universit y of 00:00:00 [facility] DTAP 2004-12-12 Completed University of 00:00:00 [facility] HEPATITIS A 2004-12-12 Completed University of 00:00:00 [facility] MMR 2004-12-12 Completed University of 00:00:00 [facility] Pneumococcal 7 2004-12-12 Completed University of Conjugate, PCV7 00:00:00 [facility] [place] [facility] ical (Prevnar7) Branch Polio (IPV/OPV) 2004-12-12 Completed Universit y of 00:00:00 [facility] DTAP 2004-12-12 Completed University of 00:00:00 [facility] Branch DTAP 2004-12-12 Completed University of 00:00:00 [facility] HEPATITIS A 2004-12-12 Completed University of 00:00:00 [facility] HEPATITIS A 2004-12-12 Completed University of 00:00:00 [facility] Branch MMR 2004-12-12 Completed University of 00:00:00 [facility] Branch Pneumococcal 7 2004-12-12 Completed University of Conjugate, PCV7 00:00:00 [place] [facility] (Prevnar7) Branch Polio (IPV/OPV) 2004-12-12 Completed Universit y of 00:00:00 [facility] Branch DTAP 2004-12-12 Completed University of 00:00:00 [facility] Branch MMR 2004-12-12 Completed University of 00:00:00 [facility] HEPATITIS A 2004-12-12 Completed University of 00:00:00 [facility] MMR 2004-12-12 Completed University of 00:00:00 [facility] Pneumococcal 7 2004-12-12 Completed University of Conjugate, PCV7 00:00:00 [place] [facility] (Prevnar7) Branch Polio (IPV/OPV) 2004-12-12 Completed Universit y of 00:00:00 [facility] DTAP 2004-12-12 Completed University of 00:00:00 [facility] Pneumococcal 7 2004-12-12 Completed University of Conjugate, PCV7 00:00:00 [place] [facility] (Prevnar7) Branch HEPATITIS A 2004-12-12 Completed University of 00:00:00 [facility] MMR 2004-12-12 Completed University of 00:00:00 [facility] Pneumococcal 7 2004-12-12 Completed University of Conjugate, PCV7 00:00:00 [facility] [place] [facility] ical (Prevnar7) Branch Polio (IPV/OPV) 2004-12-12 Completed Universit y of 00:00:00 [facility] Polio (IPV/OPV) 2004-12-12 Completed Universit y of 00:00:00 [facility] Branch DTAP 2004-12-12 Completed University of 00:00:00 [facility] HEPATITIS A 2004-12-12 Completed University of 00:00:00 [facility] MMR 2004-12-12 Completed University of 00:00:00 [facility] Pneumococcal 7 2004-12-12 Completed University of Conjugate, PCV7 00:00:00 [facility] [place] [facility] ical (Prevnar7) Branch Polio (IPV/OPV) 2004-12-12 Completed Universit y of 00:00:00 [facility] DTAP 2004-12-12 Completed University of 00:00:00 [facility] HEPATITIS A 2004-12-12 Completed University of 00:00:00 [facility] MMR 2004-12-12 Completed University of 00:00:00 [facility] Pneumococcal 7 2004-12-12 Completed University of Conjugate, PCV7 00:00:00 [place] [facility] (Prevnar7) [place] Polio (IPV/OPV) 2004-12-12 Completed Universit y of 00:00:00 [facility] DTAP 2004-12-12 Completed University of 00:00:00 [facility] HEPATITIS A 2004-12-12 Completed University of 00:00:00 [facility] MMR 2004-12-12 Completed University of 00:00:00 [facility] Pneumococcal 7 2004-12-12 Completed University of Conjugate, PCV7 00:00:00 [facility] [place] [facility] ica (Prevnar7) [place] Polio (IPV/OPV) 2004-12-12 Completed Universit y of 00:00:00 [facility] DTAP 2004-12-12 Completed University of 00:00:00 [facility] HEPATITIS A 2004-12-12 Completed University of 00:00:00 [facility] MMR 2004-12-12 Completed University of 00:00:00 [facility] Pneumococcal 7 2004-12-12 Completed University of Conjugate, PCV7 00:00:00 [facility] [place] [facility] ical (Prevnar7) [place] DTAP 2004-05-10 Completed University of 00:00:00 [facility] HIB 4 Dose Schedule 2004-05-10 Completed Unive rsity of 00:00:00 [facility] Hep B, Adol or Pedi 2004-05-10 Completed Unive rsity of Dosage 00:00:00 [facility] Pneumococcal 7 2004-05-10 Completed University of Conjugate, PCV7 00:00:00 [place] [facility] (Prevnar7) Branch Polio (IPV/OPV) 2004-05-10 Completed Universit y of 00:00:00 [facility] DTAP 2004-05-10 Completed University of 00:00:00 [facility] HIB 4 Dose Schedule 2004-05-10 Completed Unive rsity of 00:00:00 [facility] Hep B, Adol or Pedi 2004-05-10 Completed Unive rsity of Dosage 00:00:00 [facility] DTAP 2004-05-10 Completed University of 00:00:00 [facility] Pneumococcal 7 2004-05-10 Completed University of Conjugate, PCV7 00:00:00 [place] [facility] (Prevnar7) Branch Polio (IPV/OPV) 2004-05-10 Completed Universit y of 00:00:00 [facility] HIB 4 Dose Schedule 2004-05-10 Completed Unive rsity of 00:00:00 [facility] DTAP 2004-05-10 Completed University of 00:00:00 [facility] HIB 4 Dose Schedule 2004-05-10 Completed Unive rsity of 00:00:00 [facility] Hep B, Adol or Pedi 2004-05-10 Completed Unive rsity of Dosage 00:00:00 [facility] Pneumococcal 7 2004-05-10 Completed University of Conjugate, PCV7 00:00:00 [place] [facility] (Prevnar7) Branch Polio (IPV/OPV) 2004-05-10 Completed Universit y of 00:00:00 [facility] Hep B, Adol or Pedi 2004-05-10 Completed Unive rsity of Dosage 00:00:00 [facility] DTAP 2004-05-10 Completed University of 00:00:00 [facility] HIB 4 Dose Schedule 2004-05-10 Completed Unive rsity of 00:00:00 [facility] Hep B, Adol or Pedi 2004-05-10 Completed Unive rsity of Dosage 00:00:00 [facility] Pneumococcal 7 2004-05-10 Completed University of Conjugate, PCV7 00:00:00 [place] [facility] (Prevnar7) Branch Polio (IPV/OPV) 2004-05-10 Completed Universit y of 00:00:00 [facility] Pneumococcal 7 2004-05-10 Completed University of Conjugate, PCV7 00:00:00 [place] [facility] (Prevnar7) Branch DTAP 2004-05-10 Completed University of 00:00:00 [facility] HIB 4 Dose Schedule 2004-05-10 Completed Unive rsity of 00:00:00 [facility] Hep B, Adol or Pedi 2004-05-10 Completed Unive rsity of Dosage 00:00:00 [facility] Pneumococcal 7 2004-05-10 Completed University of Conjugate, PCV7 00:00:00 [place] [facility] (Prevnar7) Branch Polio (IPV/OPV) 2004-05-10 Completed Universit y of 00:00:00 [facility] Polio (IPV/OPV) 2004-05-10 Completed Universit y of 00:00:00 [facility] DTAP 2004-05-10 Completed University of 00:00:00 [facility] HIB 4 Dose Schedule 2004-05-10 Completed Unive rsity of 00:00:00 [facility] Hep B, Adol or Pedi 2004-05-10 Completed Unive rsity of Dosage 00:00:00 [facility] Pneumococcal 7 2004-05-10 Completed University of Conjugate, PCV7 00:00:00 [facility] ical (Prevnar7) [place] Polio (IPV/OPV) 2004-05-10 Completed Universit y of 00:00:00 [facility] DTAP 2004-05-10 Completed University of 00:00:00 [facility] HIB 4 Dose Schedule 2004-05-10 Completed Unive rsity of 00:00:00 [facility] Hep B, Adol or Pedi 2004-05-10 Completed Unive rsity of Dosage 00:00:00 [facility] Pneumococcal 7 2004-05-10 Completed University of Conjugate, PCV7 00:00:00 [facility] ical (Prevnar7) Branch Polio (IPV/OPV) 2004-05-10 Completed Universit y of 00:00:00 [facility] DTAP 2004-05-10 Completed University of 00:00:00 [facility] HIB 4 Dose Schedule 2004-05-10 Completed Unive rsity of 00:00:00 [facility] Hep B, Adol or Pedi 2004-05-10 Completed Unive rsity of Dosage 00:00:00 [facility] Pneumococcal 7 2004-05-10 Completed University of Conjugate, PCV7 00:00:00 [facility] ical (Prevnar7) Branch Polio (IPV/OPV) 2004-05-10 Completed Universit y of 00:00:00 [facility] DTAP 2004-05-10 Completed University of 00:00:00 [facility] HIB 4 Dose Schedule 2004-05-10 Completed Unive rsity of 00:00:00 [facility] Hep B, Adol or Pedi 2004-05-10 Completed Unive rsity of Dosage 00:00:00 [facility] Pneumococcal 7 2004-05-10 Completed University of Conjugate, PCV7 00:00:00 [facility] ical (Prevnar7) Branch Polio (IPV/OPV) 2004-05-10 Completed Universit y of 00:00:00 [facility] Varicella 2001-09-07 Completed University of (varivax)(chicken pox) 00:00:00 [facility] Varicella 2001-09-07 Completed University of (varivax)(chicken pox) 00:00:00 [facility] Varicella 2001-09-07 Completed University of (varivax)(chicken pox) 00:00:00 [facility] Varicella 2001-09-07 Completed University of (varivax)(chicken pox) 00:00:00 [facility] Varicella 2001-09-07 Completed University of (varivax)(chicken pox) 00:00:00 [facility] Varicella 2001-09-07 Completed University of (varivax)(chicken pox) 00:00:00 [facility] Varicella 2001-09-07 Completed University of (varivax)(chicken pox) 00:00:00 [facility] Varicella 2001-09-07 Completed University of (varivax)(chicken pox) 00:00:00 [facility] Varicella 2001-09-07 Completed University of (varivax)(chicken pox) 00:00:00 [facility] Varicella 2001-09-07 Completed University of (varivax)(chicken pox) 00:00:00 [facility] DTAP 2000 Completed University of 00:00:00 [facility] HIB 4 Dose Schedule 2000 Completed Unive rsity of 00:00:00 [facility] Pneumococcal 7 2000 Completed University of Conjugate, PCV7 00:00:00 [facility] ical (Prevnar7) Branch Polio (IPV/OPV) 2000 Completed Universit y of 00:00:00 [facility] DTAP 2000 Completed University of 00:00:00 [facility] DTAP 2000 Completed University of 00:00:00 [facility] HIB 4 Dose Schedule 2000 Completed Unive rsity of 00:00:00 [facility] Pneumococcal 7 2000 Completed University of Conjugate, PCV7 00:00:00 [place] [facility] (Prevnar7) [facility] Polio (IPV/OPV) 2000 Completed Universit y of 00:00:00 [facility] HIB 4 Dose Schedule 2000 Completed Unive rsity of 00:00:00 [facility] DTAP 2000 Completed University of 00:00:00 [facility] HIB 4 Dose Schedule 2000 Completed Unive rsity of 00:00:00 [facility] Pneumococcal 7 2000 Completed University of Conjugate, PCV7 00:00:00 [place] [facility] (Prevnar7) Branch Polio (IPV/OPV) 2000 Completed Universit y of 00:00:00 [facility] DTAP 2000 Completed University of 00:00:00 [facility] HIB 4 Dose Schedule 2000 Completed Unive rsity of 00:00:00 [facility] Pneumococcal 7 2000 Completed University of Conjugate, PCV7 00:00:00 [facility] [place] [facility] (Prevnar7) Branch Polio (IPV/OPV) 2000 Completed Universit y of 00:00:00 [facility] Pneumococcal 7 2000 Completed University of Conjugate, PCV7 00:00:00 [place] [facility] (Prevnar7) [facility] DTAP 2000 Completed University of 00:00:00 [facility] HIB 4 Dose Schedule 2000 Completed Unive rsity of 00:00:00 [facility] Pneumococcal 7 2000 Completed University of Conjugate, PCV7 00:00:00 [place] [facility] (Prevnar7) Branch Polio (IPV/OPV) 2000 Completed Universit y of 00:00:00 [facility] Polio (IPV/OPV) 2000 Completed Universit y of 00:00:00 [facility] DTAP 2000 Completed University of 00:00:00 [facility] HIB 4 Dose Schedule 2000 Completed Unive rsity of 00:00:00 [facility] Pneumococcal 7 2000 Completed University of Conjugate, PCV7 00:00:00 [place] [facility] (Prevnar7) Branch Polio (IPV/OPV) 2000 Completed Universit y of 00:00:00 [facility] DTAP 2000 Completed University of 00:00:00 [facility] HIB 4 Dose Schedule 2000 Completed Unive rsity of 00:00:00 [facility] Pneumococcal 7 2000 Completed University of Conjugate, PCV7 00:00:00 [place] [facility] (Prevnar7) Branch Polio (IPV/OPV) 2000 Completed Universit y of 00:00:00 [facility] DTAP 2000 Completed University of 00:00:00 [facility] HIB 4 Dose Schedule 2000 Completed Unive rsity of 00:00:00 [facility] Pneumococcal 7 2000 Completed University of Conjugate, PCV7 00:00:00 [place] [facility] (Prevnar7) Branch Polio (IPV/OPV) 2000 Completed Universit y of 00:00:00 [facility] DTAP 2000 Completed University of 00:00:00 [facility] HIB 4 Dose Schedule 2000 Completed Unive rsity of 00:00:00 [facility] Pneumococcal 7 2000 Completed University of Conjugate, PCV7 00:00:00 [place] [facility] (Prevnar7) Branch Polio (IPV/OPV) 2000 Completed Universit y of 00:00:00 [facility] Hep B, Adol or Pedi 2000 Completed Unive rsity of Dosage 00:00:00 [facility] Hep B, Adol or Pedi 2000 Completed Unive rsity of Dosage 00:00:00 [facility] Hep B, Adol or Pedi 2000 Completed Unive rsity of Dosage 00:00:00 [facility] Hep B, Adol or Pedi 2000 Completed Unive rsity of Dosage 00:00:00 [facility] Hep B, Adol or Pedi 2000 Completed Unive rsity of Dosage 00:00:00 [facility] Hep B, Adol or Pedi 2000 Completed Unive rsity of Dosage 00:00:00 [facility] Hep B, Adol or Pedi 2000 Completed Unive rsity of Dosage 00:00:00 [facility] Hep B, Adol or Pedi 2000 Completed Unive rsity of Dosage 00:00:00 [facility] Hep B, Adol or Pedi 2000 Completed Unive rsity of Dosage 00:00:00 [facility] Hep B, Adol or Pedi 2000 Completed Unive rsity of Dosage 00:00:00 [facility] Vital Signs Vital Name Observation Time Observation Value Comments Source Systolic blood 2022-09-10 20:12:00 127 mm[Hg] Univer sity of pressure [facility] Diastolic blood 2022-09-10 20:12:00 71 mm[Hg] Unive rsity of pressure [facility] Heart rate 2022-09-10 20:12:00 85 /min [facility] Body temperature 2022-09-10 20:12:00 36.83 [facility] 2022-09-10 20:12:00 18 /min [facility] Body height 2022-09-10 20:12:00 174 cm [facility] Body weight 2022-09-10 20:12:00 77.429 kg [facility] BMI 2022-09-10 20:12:00 25.57 kg/m2 [facility] Oxygen saturation in 2022-09-10 20:12:00 99 /min University of Arterial blood by [facility] Pulse oximetry Branch Respiratory rate 2019-12-17 18:11:00 16 /min [facility] Body weight 2019-12-17 18:11:00 66.724 kg [facility] Oxygen saturation in 2019-12-17 18:11:00 98 /min University of Arterial blood by [facility] Pulse oximetry Branch Systolic blood 2019-12-17 18:11:00 128 mm[Hg] Univer sity of pressure [facility] Diastolic blood 2019-12-17 18:11:00 85 mm[Hg] Unive rsity of pressure [facility] Heart rate 2019-12-17 18:11:00 110 /min [facility] Body temperature 2019-12-17 18:11:00 36.89 Michelle [facility] Procedures Procedure Date / Time Performed Performing Clinician Sourc e XR HAND <3 VW RIGHT 2019-12-17 18:53:34 Del Pimentel ty of [facility] ASSIGNMENT OF BENEFITS 2019-12-17 18:02:08 Doctor Unassigned, No [facility] Encounters Start End Encounter Admission Attending Care Care Encounter Source Date/Time Date/Time Type Type Clinicians Facility Department ID 2022-09-16 2022-09-16 Patient Tyree [facility] [id number] Univers 00:00:00 00:00:[address] [facility] [id number] i ty of [place] [id number] Markos as JAMIL?BLEA [id number] [address] MEDICAL OFFICE BUILDING 2022-09-10 2022-09-10 Outpatient R [facility] [id number] Univers 15:00:00 16:07:06 , LIBIA nas y of [facility] 2022-09-10 2022-09-[address] [facility] [id number] Univers 15:00:00 16:07:06 Visit , Libia [facility] [id number] [facility] [id number] Markos as JAMIL?BLEA [id number] [address] MEDICAL OFFICE BUILDING 2022-05-06 2022-05-06 Nurse DEL Simpson [id number] Univers 00:00:00 00:00:00 Triage Lidia AGUILLON [id number] ity of [facility] [id number] Markos as [id number] [place] [address] Branch 2020-07-22 2020-07-22 Outpatient R UNKNOWN, [facility] [id number] Univers 08:00:00 08:00:00 ATTENDING ity of [facility] 2019-12-17 2019-12-17 [facility] Dickson Pimentel [id number] Univers 13:45:33 23:59:00 Encounter Del [place] [id number] ity [id number] [place] [id number] [facility] Primary [facility] 2019-12-17 2019-12-17 Urgent Care, [place] Adult Urgent Dickson [id number] Univers 13:04:27 13:19:27 Care Unknown, Attending Pediatric [id number] 10 ity of [id number] [id number] [facility] Primary 370 [facility] 2019-12-17 2019-12-17 Outpatient R UNKNOWN, [facility] [id number] Univers 13:00:00 13:00:00 ATTENDING ity [facility] 2019-12-17 2019-12-17 Orders Doctor DEL [id number] Univers 00:00:00 00:00:00 Only Unassigned, HENNA [id number] ity of [facility] [id number] Markos as [id number] [place] [address] Branch 2019-11-07 2019-11-07 Telephone Dickson Earl [id number] Univers 00:00:00 00:00:00 Minal P Pediatric [id number] ity of [id number] [id number] [facility] [address] [facility] 2019-10-14 2019-10-14 Outpatient R MORIS GARCIA [facility] [id number] Univers 08:40:00 08:40:00 [facility] Results Test Description Test Time Test Comments Results Result Sour e Comments XR HAND <3 VW 2019-12-17 Normal exam. Universi ty of RIGHT 20:19:53 EXAM: XR HAND <3 [place] [facility] [place] VW RIGHT HISTORY: Branch right hand pain COMPARISON: None FINDINGS: Imaging of the hand demonstrates no erosions, subluxations or fractures.Joint spaces are preserved. [facility], Radiant Results Inft User - 12/17/2019 3:20 PM CDTEXAM:XR HAND <3 VW RIGHTHISTORY:righ t hand pain COMPARISON:NoneFI NDINGS: Imaging of the hand demonstrates no erosions, subluxations or fractures.Joint spaces are preserved.IMPRESS IONNormal exam.
--- NOTE | 2022-12-21 07:19 | ER ---
Nurse's Notes [facility] [place], [place] Name: Alfredo Guajardo Age: 22 yrs Sex: Male : 2000 Arrival Date: 12/21/2022 Time: 06:30 Bed 8 Private MD: Diagnosis: Generalized anxiety Presentation: 12/21 06:32 Chief complaint: EMS states: called out for anxiety .pt reports not taking his as6 medication the last few days and waking up this morning feeling like he was having an anxiety attack. Coronavirus screen: At this time, the client does not indicate any symptoms associated with coronavirus-19. Ebola Screen: No symptoms or risks identified at this time. Initial Sepsis Screen: Does the patient meet any 2 criteria? No. Patient's initial sepsis screen is negative. Does the patient have a suspected source of infection? No. Patient's initial sepsis screen is negative. Risk Assessment: Do you want to hurt yourself or someone else? Patient reports no desire to harm self or others. Onset of symptoms was December 21, 2022. 06:32 Method Of Arrival: EMS: [facility] as6 06:32 Acuity: CHRIS 4 as6 Historical: - Allergies: 06:34 No Known Allergies; as6 - Home Meds: 06:34 Hydroxyzine Oral [Active]; as6 - PMHx: 06:34 adhd; Anxiety; as6 - PSHx: 06:34 None; as6 - Immunization history:: Client reports having NOT received the Covid vaccine. - Social history:: Smoking status: Patient denies any tobacco usage or history of. Screenin:37 [facility] ED Fall Risk Assessment (Adult) Score/Fall Risk Level 0 - 2 = Low Risk. Abuse as6 screen: Denies threats or abuse. Denies injuries from another. Nutritional screening: No deficits noted. Tuberculosis screening: No symptoms or risk factors identified. Assessment: 06:35 General: Appears uncomfortable, Behavior is cooperative, anxious. Pain: Complains of as6 pain in left lateral anterior chest and left lateral posterior chest. Neuro: Level of Consciousness is awake, alert, obeys commands, Oriented to person, place, time, situation. Cardiovascular: Capillary refill < 3 seconds Patient's skin is warm and dry. Respiratory: Respiratory effort is even, unlabored, Respiratory pattern is regular, symmetrical. Derm: Skin is intact, is healthy with good turgor. Musculoskeletal: Circulation, motion, and sensation intact. Vital Signs: 06:32 BP 127 / 76; Pulse 103; Resp 20 S; Temp 98.6(O); Pulse Ox 99% on R/A; Weight 74.84 kg as6 (R); Height 5 ft. 8 in. (R); Pain 4/10; 07:46 BP 109 / 71; Pulse 89; Resp 18; Pulse Ox 99% ; ko1 06:32 Body Mass Index 25.09 (74.84 kg, 172.72 cm) as6 06:32 Pain Scale: Adult as6 ED Course: 06:32 Patient arrived in ED. as6 06:34 Triage completed. as6 06:35 Arm band placed on. as6 06:37 Bed in low position. Call light in reach. Side rails up X 1. Provided Education on: as6 breathing techniques . 07:04 Po White MD is Attending Physician. sp3 07:18 Brianna Martinez, RN is Primary Nurse. ko1 07:46 No provider procedures requiring assistance completed. ko1 07:46 Patient did not have IV access during this emergency room visit. ko1 Administered Medications: 07:25 Drug: hydrOXYzine PO 25 mg Route: PO; ko1 Medication: 06:37 VIS not applicable for this client. as6 Outcome: 07:19 Discharge ordered by . sp3 07:46 Discharged to home ambulatory. ko1 07:46 Condition: good 07:48 Discharge instructions given to patient, Instructed on discharge instructions, follow ko1 up and referral plans. medication usage, Demonstrated understanding of instructions, follow-up care, medications, Prescriptions given X 1. 07:49 Patient left the ED. ko1 Signatures: Po White MD MD sp3 Abelardo Kwong RN RN as6 Brianna Martinez RN RN ko1
--- NOTE | 2022-12-21 07:19 | EDPHYS ---
Physician Documentation [facility] Name: Alfredo Guajardo Age: 22 yrs Sex: Male : 2000 Arrival Date: 12/21/2022 Time: 06:30 Bed 8 Private MD: ED Physician Po White HPI: 12/21 07:14 This 22 yrs old Male presents to ER via EMS with complaints of Anxiety. sp3 07:14 22-year-old male with history of ADHD and anxiety presents to the ED with chief sp3 complaint anxious symptoms that he woke up today. He states he lost his hydroxyzine prescription approximately 2 days ago secondary to "the bottle Opening up and it all fell out". He denies any other drug use or other substance intake. He also denies any other psychiatric problem including suicidal ideation, homicidal ideation, psychosis, any other somatic symptoms including headache, neck pain, chest pain, shortness of breath, abdominal pain, nausea, vomiting, diarrhea, skin rash, known sick contacts, travel history, or any other signs or symptoms on ROS at this time.. Historical: - Allergies: 06:34 No Known Allergies; as6 - Home Meds: 06:34 Hydroxyzine Oral [Active]; as6 - PMHx: 06:34 adhd; Anxiety; as6 - PSHx: 06:34 None; as6 - Immunization history:: Client reports having NOT received the Covid vaccine. - Social history:: Smoking status: Patient denies any tobacco usage or history of. ROS: 07:16 Constitutional: Negative for fever, chills, and weight loss, Eyes: Negative for injury, sp3 pain, redness, and discharge, ENT: Negative for injury, pain, and discharge, Neck: Negative for injury, pain, and swelling, Cardiovascular: Negative for chest pain, palpitations, and edema, Respiratory: Negative for shortness of breath, cough, wheezing, and pleuritic chest pain, Abdomen/GI: Negative for abdominal pain, nausea, vomiting, diarrhea, and constipation, Back: Negative for injury and pain, : Negative for injury, bleeding, discharge, and swelling, MS/Extremity: Negative for injury and deformity, Skin: Negative for injury, rash, and discoloration, Neuro: Negative for headache, weakness, numbness, tingling, and seizure, Allergy/Immunology: Negative for hives, rash, and allergies, Endocrine: Negative for neck swelling, polydipsia, polyuria, polyphagia, and marked weight changes, Hematologic/Lymphatic: Negative for swollen nodes, abnormal bleeding, and unusual bruising. 07:16 All other systems are negative. Exam: 07:16 Constitutional: This is a well developed, well nourished patient who is awake, alert, sp3 and in no acute distress. Head/Face: Normocephalic, atraumatic. Eyes: Pupils equal round and reactive to light, extra-ocular motions intact. Lids and lashes normal. Conjunctiva and sclera are non-icteric and not injected. Cornea within normal limits. Periorbital areas with no swelling, redness, or edema. ENT: Nares patent. No nasal discharge, no septal abnormalities noted. External auditory canals are clear. Oropharynx with no redness, swelling, or masses, exudates, or evidence of obstruction, uvula midline. Mucous membranes moist. Neck: Trachea midline, no thyromegaly or masses palpated, and no cervical lymphadenopathy. Supple, full range of motion without nuchal rigidity, or vertebral point tenderness. No Meningismus. Chest/axilla: Normal chest wall appearance and motion. Nontender with no deformity. No lesions are appreciated. Cardiovascular: Regular rate and rhythm with a normal S1 and S2. No gallops, murmurs, or rubs. Normal PMI, no JVD. No pulse deficits. Respiratory: Lungs have equal breath sounds bilaterally, clear to auscultation and percussion. No rales, rhonchi or wheezes noted. No increased work of breathing, no retractions or nasal flaring. Abdomen/GI: Soft, non-tender, with normal bowel sounds. No distension or tympany. No guarding or rebound. No evidence of tenderness throughout. Back: No spinal tenderness. No costovertebral tenderness. Full range of motion. Skin: Warm, dry with normal turgor. Normal color with no rashes, no lesions, and no evidence of cellulitis. MS/ Extremity: Pulses equal, no cyanosis. Neurovascular intact. Full, normal range of motion. Neuro: Awake and alert, GCS 15, oriented to person, place, time, and situation. Cranial nerves II-XII grossly intact. Motor strength 5/5 in all extremities. Sensory grossly intact. Cerebellar exam normal. Normal gait. Psych: Awake, alert, with orientation to person, place and time. Behavior, mood, and affect are within normal limits. Vital Signs: 06:32 BP 127 / 76; Pulse 103; Resp 20 S; Temp 98.6(O); Pulse Ox 99% on R/A; Weight 74.84 kg as6 (R); Height 5 ft. 8 in. (R); Pain 4/10; 07:46 BP 109 / 71; Pulse 89; Resp 18; Pulse Ox 99% ; ko1 06:32 Body Mass Index 25.09 (74.84 kg, 172.72 cm) as6 06:32 Pain Scale: Adult as6 MDM: 07:11 Patient medically screened. sp3 07:16 Data reviewed: vital signs, nurses notes, old medical records. ED course: 20-year-old sp3 male with anxiety attack that is now resolved. Patient's initial heart rate 103 with hours in the upper 80s. He is resting comfortably no acute distress. I do not believe patient is having any psychosis or suicidal homicidal ideation any other psychiatric emergency at this time. We will refill his hydroxyzine and give him 1 dose p.o. here in the ED prior to discharge. He can follow back up with his PCP as needed. Patient has no other critical illness or needed intervention at this time.. Administered Medications: 07:25 Drug: hydrOXYzine PO 25 mg Route: PO; ko1 Disposition Summary: 12/21/22 07:19 Discharge Ordered Location: Home sp3 Condition: Stable sp3 Diagnosis - Generalized anxiety sp3 Followup: sp3 - With: Private Physician - When: Upon discharge from the Emergency Department - Reason: Continuance of care Discharge Instructions: - Discharge Summary Sheet sp3 - Generalized Anxiety Disorder, Adult sp3 Forms: - Work release form hb - Medication Reconciliation Form sp3 - Thank You Letter sp3 - Antibiotic Education sp3 - Prescription Opioid Use sp3 - Patient Portal Instructions sp3 - Leadership Thank You Letter sp3 Prescriptions: - Hydroxyzine HCl 25 mg Oral Tablet - take 1 tablet by ORAL route every 6 hours As needed; 30 tablet; Refills: 0, sp3 Product Selection Permitted Signatures: Po White MD MD sp3 Abelardo Kwong RN RN as6 Juan, Brianna, RN RN ko1
[2022-12-21] MEDS ORDERED: hydrOXYzine HCL 25 MG TAB ONE (07:36)
[2022-12-21 07:58] VITALS: TEMP 98.6; O2SAT 99
[2022-12-21 08:00] VITALS: BP 109/71
== END 2022-12-21 07:49 | disposition home or self-care (01) ==
LOC: ER 06:30
DX: F41.1 Generalized anxiety disorder (principal)
CPT/HCPCS: 99283

== ENCOUNTER 2023-03-12 13:49 | Emergency (ER) | payer SELFPAY ==
--- OUTSIDE RECORDS SUMMARY | 2023-03-12 13:51 | XMS REPORT | Continuity of Care Document ---
:2000 Author Organization [facility] t Address [address] [address] [place] [id number] Care Team Providers Name Role Phone Pcp, Patient Does Not Have A Primary Care Physician [phone] Allyn Clements LMSW Attending Clinician LIBIA RDZ Attending Clinician Unavailable Libia Rdz MD Attending Clinician [phone] Lidia Simpson RN Attending Clinician Unavailable UNKNOWN, ATTENDING Attending Clinician Unavailable Del Pimentel PA-C Attending Clinician Care, [facility] Attending Clinician Unavailable Unknown, Attending Attending Clinician Unavailable Doctor Unassigned, [place] Attending Clinician Unavailable Minal Earl MD Attending Clinician MORIS GARCIA Attending Clinician Unavailable Payers Payer Name Policy Type Policy Number Effective Date Expiration Date Jacquie patricia [facility] [id number] 2016 00:00:00 Problems Condition Condition Condition Status Onset Resolution Last Treating Co mments Source Name Details Category Date Date Treatment Clinician Date Nocturnal Nocturnal Disease Active Uni vers enuresis enuresis -08 ity of 00:00: [place] 00 Medical Branch Chronic Chronic Disease Active Univers depressive depressive it y of [place] disorder y disorder [place] dical Branch Attention Attention Disease Active Overview: Univers deficit deficit Formattin ity o f hyperactiv hyperactiv g of this [place] ity ity note Medical disorder disorder might be Bran ch (ADHD) (ADHD) different from the original. 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 Allergies, Adverse Reactions, Alerts Allergy Allergy Status Severity Reaction(s) Onset Inactive Treating Comm ents Source Name Type Date Date Clinician NO KNOWN Drug Active Univers ALLERGIE Class ity of S [facility] Social History Social Habit Start Date Stop Date Quantity Comments Source Exposure to 2022-08-31 2022-09-10 Not sure [facility]-CoV-2 00:00:00 15:05:00 [facility] (event) Branch Alcohol intake 2022-09-10 2022-09-10 Current drinker of Un iversity of 00:00:00 00:00:00 alcohol (finding) [facility] edical [place] Tobacco Comment 2022-09-10 2022-09-10 uncle smokes around University of 00:00:00 00:00:00 patient [facility] Alcohol Comment 2022-09-10 2022-09-10 occasionally Univers ity of 00:00:00 00:00:00 [facility] Tobacco use and 2022-09-10 2022-09-10 Smokeless tobacco Un iversity of exposure 00:00:00 00:00:00 non-user [facility] Sex Assigned At 2000 2000 Universit y of 00:00:00 00:00:00 [facility] Smoking Status Start Date Stop Date Source Never smoked tobacco [facility] Medications Ordered Filled Start Stop Current Ordering Indication Dosage Frequency Signature Comments Components Source Medication Medication Date Date Medication? Clinician (SIG) Name Name hydrOXYzine Yes [id number] 25mg Take 1 Univers 25 mg 5-10 tablet by ity of tablet 00:00: mouth [place] 00 every 6 Medical (six) Branch hours as needed for Itching. hydrOXYzine 2022-0 Yes [id number] 25mg Take 1 Univers 25 mg 5-10 tablet by ity of tablet 00:00: mouth [place] 00 every 6 Medical (six) Branch hours as needed for Itching. hydrOXYzine 2022-0 Yes [id number] 25mg Take 1 Univers 25 mg 5-10 tablet by ity of tablet 00:00: mouth [place] 00 every 6 Medical (six) Branch hours as needed for Itching. hydrOXYzine 2022-0 Yes [id number] 25mg Take 1 Univers 25 mg 5-10 tablet by ity of tablet 00:00: mouth [place] 00 every 6 Medical (six) Branch hours as needed for Itching. hydrOXYzine Yes [id number] 25mg Take 1 Univers 25 mg 5-10 tablet by ity of tablet 00:00: mouth [place] 00 every 6 Medical (six) Branch hours as needed for Itching. hydrOXYzine 2022- No TAKE 1 Uni vers 25 mg 2-23 05-10 TABLET BY ity of tablet 00:00: 00:00 MOUTH [place] 00 :00 EVERY 6 Medical HOURS Branch NEEDED hydrOXYzine 2022- No TAKE 1 Uni vers 25 mg 2-23 05-10 TABLET BY ity of tablet 00:00: 00:00 MOUTH [place] 00 :00 EVERY 6 Medical HOURS Branch NEEDED No known No No known Unive rs medications 8-15 medication it y of 13:11: s [address] No known No Univers medications [facility] No known No Univers medications [facility] No known No Univers medications [facility] No known No Univers medications [facility] Vital Signs Vital Name Observation Time Observation Value Comments Source Systolic blood 2022-09-10 20:12:00 127 mm[Hg] Univer sity [facility] Diastolic blood 2022-09-10 20:12:00 71 [facility]Hg[facility] rate 2022-09-10 20:12:00 85 /min [facility] Body temperature 2022-09-10 20:12:00 36.83 Michelle [facility] Respiratory rate 2022-09-10 20:12:00 18 /min [facility] Body height 2022-09-10 20:12:00 174 cm [facility] Body weight 2022-09-10 20:12:00 77.429 kg [facility] BMI 2022-09-10 20:12:00 25.57 kg/m2 [facility] Oxygen saturation in 2022-09-10 20:12:00 99 /min [facility] Arterial blood by [facility] Pulse oximetry Branch Respiratory rate 2019-12-17 18:11:00 16 /min [facility] Body weight 2019-12-17 18:11:00 66.724 kg [facility] Oxygen saturation in 2019-12-17 18:11:00 98 /min [facility] Arterial blood by [facility] Pulse oximetry Branch Systolic blood 2019-12-17 18:11:00 128 mm[Hg] Univer sity of pressure [facility] Diastolic blood 2019-12-17 18:11:00 85 mm[Hg] Unive rsity of pressure [facility] Heart rate 2019-12-17 18:11:00 110 /min [facility] Body temperature 2019-12-17 18:11:00 36.89 [facility] Procedures Procedure Date / Time Performed Performing Clinician Sourc e XR HAND <3 VW RIGHT 2019-12-17 18:53:34 Del Pimentel [facility] ASSIGNMENT OF BENEFITS 2019-12-17 18:02:08 Doctor Unassigned, No [facility] Encounters Start End Encounter Admission Attending Care Care Encounter Source Date/Time Date/Time Type Type Clinicians Facility Department ID 2022-09-16 2022-09-16 Patient Tyree [facility] [id number] Univers 00:00:00 00:00:00 Outreach Allyn Sr itBit [id number] i ty of ANDREW [id number] Markos as JAMIL?BLEA [id number] [address] MEDICAL OFFICE BUILDING 2022-09-10 2022-09-10 Outpatient R [facility] [id number] Univers 15:00:00 16:07:06 , LIBIA lovell y of [facility] 2022-09-10 2022-09-10 Office [facility] [id number] Univers 15:00:00 16:07:06 Visit , Libia [facility] [id number] ity of Galdino MORALES [id number] Markos as JAMIL?BLEA [id number] [address] MEDICAL OFFICE BUILDING 2022-05-06 2022-05-06 Nurse DEL Simpson [id number] Univers 00:00:00 00:00:00 Triage Lidia AGUILLON [id number] ity of HOSPITAL [id number] Markos as [id number] [facility] 019 Branch 2020-07-22 2020-07-22 Outpatient R UNKNOWN, [facility] [id number] Univers 08:00:00 08:00:00 ATTENDING ity [facility] 2019-12-17 2019-12-17 Hospital LorenDickson [id number] Univers 13:45:33 23:59:00 Encounter Del Pediatric [id number] ity of [id number] [place] [id number] [facility] [address] [facility] 2019-12-17 2019-12-17 Urgent Care, [facility]gent Dickson [id number] Univers 13:04:27 13:19:27 Care Unknown, Attending Pediatric 350.1.13. 10 ity of [id number] [place] [id number] [facility] [address] [facility] 2019-12-17 2019-12-17 Outpatient R UNKNOWN, [facility] [id number] Univers 13:00:00 13:00:00 [facility]-12[facility]17 2019-12-17 Orders Doctor DEL [id number] Univers 00:00:00 00:00:00 Only Unassigned, HENNA [id number] ity of [place] [facility] [id number] Markos as [id number] [facility] 009 Branch 2019-11-07 2019-11-07 Telephone Dickson Earl [id number] Univers 00:00:00 00:00:00 Minal P Pediatric [id number] ity of [id number] [id number] [facility] Primary [address] [facility] 2019-10-14 2019-10-14 Outpatient R MORIS GARCIA [facility] [id number] Univers 08:40:00 [facility]40[facility] Results Test Description Test Time Test Comments [...]
--- NOTE | 2023-03-12 14:51 | EDPHYS ---
Physician Documentation [facility] Name: Alfredo Guajardo Age: 22 yrs Sex: Male : 2000 Arrival Date: 03/12/2023 Time: 13:49 Bed 24 Private MD: ED Physician Po White HPI: 03/12 14:46 This 22 yrs old Male presents to ER via Unassigned with complaints of Eye Injury. jr8 14:46 The patient is experiencing pain, redness, tearing. Onset: The symptoms/episode jr8 began/occurred acutely, today. Duration: the symptoms are continuous. Aggravated by opening eye, Alleviated by nothing. Associated signs and symptoms: Pertinent positives: None. Severity of symptoms: At their worst the symptoms were mild in the emergency department the symptoms are unchanged. The patient has not experienced similar symptoms in the past. The patient has not recently seen a physician. 22-year-old male presented to the emergency room after accidentally stabbing and being himself in the eyeball with a screwdriver while at work. Complains of pain and redness along with tearing to the eye. Denies any decreased vision. Historical: - Allergies: 14:50 No Known Allergies; jl7 - Home Meds: 14:50 Hydroxyzine Oral [Active]; jl7 - PMHx: 14:50 adhd; Anxiety; jl7 - Immunization history:: Adult Immunizations unknown. ROS: 14:46 Constitutional: Negative for fever, chills, and weight loss, ENT: Negative for injury, jr8 pain, and discharge, Cardiovascular: Negative for chest pain, palpitations, and edema, Respiratory: Negative for shortness of breath, cough, wheezing, and pleuritic chest pain, Abdomen/GI: Negative for abdominal pain, nausea, vomiting, diarrhea, and constipation, MS/Extremity: Negative for injury and deformity, Skin: Negative for injury, rash, and discoloration, Neuro: Negative for headache, weakness, numbness, tingling, and seizure, 14:46 Eyes: Positive for pain, redness, tearing, Exam: 14:46 Visual Acuity: I have reviewed the nursing documentation. Visual acuity is within jr8 normal limits. 14:46 Constitutional: This is a well developed, well nourished patient who is awake, alert, and in no acute distress. Cardiovascular: Regular rate and rhythm with a normal S1 and S2. No gallops, murmurs, or rubs. Normal PMI, no JVD. No pulse deficits. Respiratory: Lungs have equal breath sounds bilaterally, clear to auscultation and percussion. No rales, rhonchi or wheezes noted. No increased work of breathing, no retractions or nasal flaring. Skin: Warm, dry with normal turgor. Normal color with no rashes, no lesions, and no evidence of cellulitis. MS/ Extremity: Pulses equal, no cyanosis. Neurovascular intact. Full, normal range of motion. Neuro: Awake and alert, GCS 15, oriented to person, place, time, and situation. Motor strength 5/5 in all extremities. Sensory grossly intact. 14:46 Eyes: Periorbital structures: appear normal, Pupils: equal, round, and reactive to light and accomodation, Extraocular movements: intact throughout, Conjunctiva: injected, in the left eye, Corneas: abrasion, that is small, approximately 2.5 mm(s), on the left, at 2 o'clock, foreign body, is not appreciated, a fluorescein strip employed to appreciate the findings, Anterior chamber: normal, Lids and lashes: appear normal, Vital Signs: 14:46 BP 123 / 75; Pulse 95; Resp 15; Temp 97.9; Pulse Ox 100% ; Weight 77.11 kg; Height 5 jl7 ft. 8 in. ; Pain 5/10; 14:46 Body Mass Index 25.85 (77.11 kg, 172.72 cm) jl7 14:46 Pain Scale: Adult jl7 MDM: 14:42 Patient medically screened. jr8 14:46 Data reviewed: vital signs, nurses notes, and as a result, I will discharge patient. jr8 Counseling: I had a detailed discussion with the patient and/or guardian regarding the historical points, exam findings, and any diagnostic results supporting the discharge/admit diagnosis, the need for outpatient follow up, an opthalmologist, to return to the emergency department if symptoms worsen or persist or if there are any questions or concerns that arise at home. ED course: Discussed with patient that he has a corneal abrasion at the 2 o'clock position of the left eye. We will start him on antibiotic eyedrops and want him to follow-up with ophthalmology to ensure that he is healing appropriately. Needs to wear sunglasses while he is outside and protective eyewear while at work. If he has worsening of symptoms or change in symptoms come back to emergency room for further reevaluation. Patient understood plan and good with that at this time.. Administered Medications: No medications were administered Disposition Summary: 03/12/23 14:51 Discharge Ordered Notes: Location: Home jr8 Problem: new jr8 Symptoms: have improved jr8 Condition: Stable jr8 Diagnosis - Injury of conjunctiva and corneal abrasion without foreign body, left eye jr8 Followup: jr8 - With: Jesus Boss MD - When: 5 - 6 days - Reason: Recheck today's complaints, Continuance of care, Re-evaluation by your physician Discharge Instructions: - Discharge Summary Sheet jr8 - Corneal Abrasion jr8 Forms: - Medication Reconciliation Form jr8 - Thank You Letter jr8 - Antibiotic Education jr8 - Prescription Opioid Use jr8 - Patient Portal Instructions jr8 - Leadership Thank You Letter jr8 Prescriptions: - Gentamicin 0.3 % Ophthalmic drops - instill 2 drops OPHTHALMIC route every 4 hours for 7 days; 1 Applicator; jr8 Refills: 0, Product Selection Permitted Signatures: Carlos Loya PA PA jr8 Uli Bliss, RN RN jl7
--- NOTE | 2023-03-12 14:51 | ER ---
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 Coronavirus screen: At [facility] this time, the client does not indicate any symptoms associated with coronavirus-19. Ebola Screen: No symptoms or risks identified at this time. The patient denies any loss of vision. Initial Sepsis Screen: Does the patient meet any 2 criteria? No. Patient's initial sepsis screen is negative. Does the patient have a suspected source of infection? No. Patient's initial sepsis screen is negative. Risk Assessment: Do you want to hurt yourself or someone else? Patient reports no desire to harm self or others. Onset of symptoms was March 12, 2023. 14:46 Method Of Arrival: Ambulatory [facility] 14:46 Acuity: CHRIS 4 jl7 Triage Assessment: 14:50 General: Appears in no apparent distress. uncomfortable, Behavior is calm, cooperative, jl7 appropriate for age. Pain: Complains of pain in left eye. EENT: Eyes are tearing on left eye Sclera/Cornea are reddened in left eye. Neuro: Level of Consciousness is awake, alert, obeys commands. Cardiovascular: Patient's skin is warm and dry. Respiratory: Airway is patent Respiratory effort is even, unlabored, Respiratory pattern is regular, symmetrical. Derm: Skin is pink, warm \T\ dry. Historical: - Allergies: 14:50 No Known Allergies; jl7 - Home Meds: 14:50 Hydroxyzine Oral [Active]; jl7 - PMHx: 14:50 adhd; Anxiety; jl7 - Immunization history:: Adult Immunizations unknown. Vital Signs: 14:46 BP 123 / 75; Pulse 95; Resp 15; Temp 97.9; Pulse Ox 100% ; Weight 77.11 kg; Height 5 jl7 ft. 8 in. ; Pain 5/10; 14:46 Body Mass Index 25.85 (77.11 kg, 172.72 cm) [facility] 14:46 Pain Scale: Adult [facility] ED Course: 13:49 Patient arrived in ED. rg4 14:42 Carlos Loya [facility] jr8 14:42 Po White MD is Attending Physician. jr8 14:49 Triage completed. jl7 14:50 Jesus Boss MD is Referral Physician. jr8 14:50 Arm band placed on right wrist. jl7 14:51 Assist provider with eye exam of left eye. using fluorescein stain, Performed by Carlos jl7 Shalini LOMELI Patient tolerated well. Patient did not have IV access during this emergency room visit. Administered Medications: No medications were administered Outcome: 14:51 Discharge ordered by . jr8 14:55 Discharged to home ambulatory, 7 14:55 Condition: stable 14:55 Discharge instructions given to patient, Instructed on discharge instructions, follow up and referral plans. medication usage, Demonstrated understanding of instructions, follow-up care, medications, Prescriptions given X 1, 14:56 Patient left the ED. 7 Signatures: Carlos Loya PA PA jr8 Missy Chanel rg4 Uli Bliss, RN RN jl7
[2023-03-12] MEDS ORDERED: TETRACAINE HCL 0.5% 4ML OPTH ONE (15:02)
[2023-03-12 15:08] VITALS: BP 123/75; TEMP 97.9; O2SAT 100
== END 2023-03-12 14:56 | disposition home or self-care (01) ==
LOC: ER 13:49
DX: S05.02XA Injury of conjunctiva and corneal abrasion without foreign body, left eye, initial encounter (principal)
CPT/HCPCS: 99283

== ENCOUNTER → 2023-06-25 | Emergency (ER) | payer SELFPAY ==
[~2023-06-25] MED LIST: AZITHROMYCIN 250 MG TAB ONE; dexAMETHasone 10 MG/ML VIAL ONE
--- OUTSIDE RECORDS SUMMARY | 2023-06-25 11:24 | XMS REPORT | Continuity of Care Document ---
Author Name Unknown Address [address] [facility] [address] [place] [address] [facility] thconnect Address [address] [facility] [address] [place] [address] Care Team Providers Care Sky Cap Name Role Phone Pcp, Patient Does Not Have A Primary Care Physic zenon Allyn Clements LMSW Attending Clinician [phone] LIBIA RDZ Attending Clinician Libia Campbell MD Attending Clinician Lidia Simpson RN Attending Clinician Unavailab le UNKNOWN, ATTENDING Attending Clinician Unavailab Johann Hurt PA-C Attending Clinician [facility], [facility] Attending Clinician Unaendy ilmicah Unknown, Attending Attending Clinician Unavailab le Doctor Unassigned, [place] Attending Clinician Minal Denis MD Attending Clinician [phone] MORIS GARCIA Attending Clinician Unavailab nia Payers Payer Name Policy Type Policy Number Effective Date Expirati on Date Source [facility] [id number] 2016 00:00:00 Problems Condition Name Condition Details Condition Category Status Onset Date Resolution Date Last Treatment Date Treating Clinician Comments Source Nocturnal enuresis Nocturnal enuresis Disease Active 10-09 00:00: 00 [facility] Chronic depressive personalit y disorder Chronic depressive personalit y disorder Disease Active [facility] Attention deficit hyperactiv ity disorder (ADHD) Attention deficit hyperactiv ity disorder (ADHD) Disease Active Overview: Formattin g of this note might be different from the original. ICD10 Diagnosis Term [employer] [facility] Allergies, Adverse Reactions, Alerts Allergy Name Allergy Type Status Severity Reaction(s) Onset Date Inactive Date Treating Clinician Comments Source NO KNOWN ALLERGIE S Drug Class Active [facility] Social History Social Habit Start Date Stop Date Quantity Comments Source Exposure to SARS-CoV-2 (event) 2022-08-31 00:00:00 2022-09-10 15:05:00 Not sure [facility] Alcohol intake 2022-09-10 00:00:00 2022-09-10 00:00:00 Current drinker of alcohol (finding) [facility] Tobacco Comment 2022-09-10 00:00:00 2022-09-10 00:00:00 uncle smokes around patient [facility] Alcohol Comment 2022-09-10 00:00:00 2022-09-10 00:00:00 occasionally [facility] Tobacco use and exposure 2022-09-10 00:00:00 2022-09-10 00:00:00 Smokeless tobacco non-user [facility] Sex Assigned At 2000 00:00:00 2000 00:00:00 [facility] Smoking Status Start Date Stop Date Source Never smoked tobacco [facility] Medications Ordered Medication Name Filled Medication Name Start Date Stop Date Current Medication? Ordering Clinician Indication Dosage Frequency Signature (SIG) Comments Components Source hydrOXYzine 25 mg tablet 09-10 00:00: 00 Yes [id number] 25mg Take 1 tablet by mouth every 6 (six) hours as needed for Itching. [facility] hydrOXYzine 25 mg tablet 09-10 00:00: 00 Yes [id number] 25mg Take 1 tablet by mouth every 6 (six) hours as needed for Itching. [facility] hydrOXYzine 25 mg tablet 09-10 00:00: 00 Yes [id number] 25mg Take 1 tablet by mouth every 6 (six) hours as needed for Itching. [facility] hydrOXYzine 25 mg tablet 09-10 00:00: 00 Yes [id number] 25mg Take 1 tablet by mouth every 6 (six) hours as needed for Itching. [facility] hydrOXYzine 25 mg tablet 5- 00:00: 00 Yes [id number] 25mg Take 1 tablet by mouth every 6 (six) hours as needed for Itching. [facility] hydrOXYzine 25 mg tablet 2-23 00:00: 00 09-10 00:00 :00 No TAKE 1 TABLET BY MOUTH EVERY 6 HOURS NEEDED [facility] hydrOXYzine 25 mg tablet 2-23 00:00: 00 09-10 00:00 :00 No TAKE 1 TABLET BY MOUTH EVERY 6 HOURS NEEDED [facility] No known medications 12-16 13:11: 42 No No known medication s [facility] No known medications No Un kirstie [facility] No known medications No Un kirstie [facility] No known medications No Un kirstie [facility] No known medications No Un kirstie [facility] Vital Signs Vital Name Observation Time Observation Value Comments S ource Systolic blood pressure 2022-09-10 20:12:00 127 mm[Hg] [facility] Diastolic blood pressure 2022-09-10 20:12:00 71 mm[Hg] [facility] Heart rate 2022-09-10 20:12:00 85 /min [facility] Body temperature 2022-09-10 20:12:00 36.83 Michelle [facility] Respiratory rate 2022-09-10 20:12:00 18 /min [facility] Body height 2022-09-10 20:12:00 174 cm [facility] Body weight 2022-09-10 20:12:00 77.429 kg [facility] BMI 2022-09-10 20:12:00 25.57 kg/m2 [facility] Oxygen saturation in Arterial blood by Pulse oximetry 2022-09-10 20:12:00 99 /min [facility] Respiratory rate 2019-12-17 18:11:00 16 /min [facility] Body weight 2019-12-17 18:11:00 66.724 kg [facility] Oxygen saturation in Arterial blood by Pulse oximetry 2019-12-17 18:11:00 98 /min [place] [facility] Systolic blood pressure 2019-12-17 18:11:00 128 mm[Hg] [facility] Diastolic blood pressure 2019-12-17 18:11:00 85 mm[Hg] [place] [facility] Heart rate 2019-12-17 18:11:00 110 /min [facility] Body temperature 2019-12-17 18:11:00 36.89 Michelle [facility] Procedures Procedure Date / Time Performed Performing Clinicia n Source XR HAND <3 VW RIGHT 2019-12-17 18:53:[address] [facility]ENEFITS 2019-12-17 18:02:08 Docto r Unassigned, [place] [facility] Encounters Start Date/Time End Date/Time Encounter Type Admission Type Attending Clinicians Care Facility Care Department Encounter ID Source 2022-09-16 00:00:00 2022-09-16 00:00:00 Patient Outreach Allyn Clements [facility] 1..840.114 [id number] [facility] 2022-09-10 15:00:00 2022-09-10 16:07:06 Outpatient R LIBIA RDZ [facility] [id number] [facility] 2022-09-10 15:00:00 2022-09-10 16:07:06 Office Visit Libia Rdz [facility] 1..840.114 [id number] [facility] 2022-05-06 00:00:00 2022-05-06 00:00:00 Nurse Triage Lidia Simpson [facility] 1..840.114 [id number] [id number] [facility] 2020-07-22 08:00:00 2020-07-22 08:00:00 Outpatient R UNKNOWN, ATTENDING [facility] [id number] [facility] 2019-12-17 13:45:33 2019-12-17 23:59:00 Hospital Encounter Loren [facility] 1..114 [id number] [facility] 2019-12-17 13:04:27 2019-12-17 13:19:27 Urgent Care Care, [place] [facility] Unknown, Attending [facility] 1.114 [id number] [facility] 2019-12-17 13:00:00 2019-12-17 13:00:00 Outpatient R UNKNOWN, ATTENDING [facility] [id number] [facility] 2019-12-17 00:00:00 2019-12-17 00:00:00 Orders Only Doctor Unassigned, [place] [facility] [id number] [id number] [facility] 2019-11-07 00:00:00 2019-11-07 00:00:00 Telephone Minal Earl [facility] 1.114 [id number] [facility] 2019-10-14 08:40:00 2019-10-14 08:40:00 Outpatient R MORIS GARCIA [facility] [id number] Univer s [facility] Results Test Description Test Time Test Comments Results Resul t Comments Source XR HAND <3 VW RIGHT 2019-12-17 20:19:53 Normal exam. EXAM: XR HAND <3 VW RIGHT HISTORY: right hand pain COMPARISON: None FINDINGS: Imaging of the hand demonstrates no erosions, subluxations or fractures.Joint spaces are preserved. [facility], Radiant Results Inft User - 12/17/2019 3:20 PM CDTEXAM:XR HAND <3 VW RIGHTHISTORY:righ t hand pain COMPARISON:NoneFI NDINGS: Imaging of the hand demonstrates no erosions, subluxations or fractures.Joint spaces are preserved.IMPRESS IONNormal exam. [facility]
--- NOTE | 2023-06-25 12:09 | ER ---
Nurse's Notes [facility] Name: Alfredo Guajardo Age: 22 yrs Sex: Male : 2000 Arrival Date: 06/25/2023 Time: 11:21 Bed IW3 Private MD: Diagnosis: Acute pharyngitis, unspecified;Other acute sinusitis Presentation: 06/25 12:02 Chief complaint: Patient states: Pt c/o sore throat, productive cough for yellow tl4 phlegm, headache, and diarrhea x 2 weeks. Pt denies fever/chills. No relief with OTC meds. Coronavirus screen: congestion, cough unrelated to allergies, diarrhea. Ebola Screen: No symptoms or risks identified at this time. Initial Sepsis Screen: Does the patient meet any 2 criteria? No. Patient's initial sepsis screen is negative. Does the patient have a suspected source of infection? No. Patient's initial sepsis screen is negative. Risk Assessment: Do you want to hurt yourself or someone else? Patient reports no desire to harm self or others. Onset of symptoms was June 13, 2023. 12:02 Method Of Arrival: Ambulatory tl4 12:02 Acuity: CHRIS 4 tl4 Triage Assessment: 12:05 General: Appears uncomfortable, Behavior is calm, cooperative. Pain: Complains of pain tl4 in neck. EENT: Reports difficulty swallowing nasal congestion. Neuro: No deficits noted. Cardiovascular: No deficits noted. Respiratory: Reports cough that is productive, Denies shortness of breath. GI: Reports diarrhea, Patient currently denies abdominal pain. : No deficits noted. No signs and/or symptoms were reported regarding the genitourinary system. Derm: No deficits noted. No signs and/or symptoms reported regarding the dermatologic system. Historical: - Allergies: 12:04 No Known Allergies; tl4 - Home Meds: 12:04 Hydroxyzine Oral [Active]; tl4 - PMHx: 12:04 adhd; Anxiety; tl4 - PSHx: 12:04 None; tl4 - Immunization history:: Adult Immunizations unknown. - Social history:: Smoking status: Patient denies any tobacco usage or history of. Screenin:06 [facility] ED Fall Risk Assessment (Adult) History of falling in the last 3 months, tl4 including since admission No falls in past 3 months (0 pts) Confusion or Disorientation No (0 pts) Intoxicated or Sedated No (0 pts) Impaired Gait No (0 pts) Mobility Assist Device Used No (0 pt) Altered Elimination No (0 pt) Score/Fall Risk Level 0 - 2 = Low Risk Oriented to surroundings, Maintained a safe environment, Educated pt \T\ family on fall prevention, incl call for assistance when getting out of bed, Assessed \T\ reinforced patient's understanding of fall precautions, Provided non-skid footwear, Hourly rounding (assess needs \T\ fall precautionary measures) done, Used ambulatory aids as needed (educated on \T\ assisted with), Used gait belt as appropriate. Abuse screen: Denies threats or abuse. Denies injuries from another. Nutritional screening: No deficits noted. Tuberculosis screening: No symptoms or risk factors identified. Assessment: 12:07 Respiratory: Airway is patent Respiratory effort is even, unlabored, Breath sounds are tl4 clear bilaterally. EENT: Throat is reddened. Vital Signs: 12:02 BP 130 / 78; Pulse 92; Resp 16; Temp 98.4(O); Pulse Ox 100% on R/A; Weight 77.11 kg; tl4 Height 5 ft. 8 in. ; Pain 8/10; 12:02 Body Mass Index 25.85 (77.11 kg, 172.72 cm) tl4 12:02 Pain Scale: Adult tl4 ED Course: 11:28 Patient arrived in ED. kj1 11:33 Jomar Rojas MD is Attending Physician. ec2 12:04 Triage completed. tl4 12:05 Arm band placed on left wrist. tl4 12:06 No provider procedures requiring assistance completed. Patient did not have IV access tl4 during this emergency room visit. 12:07 Patient has correct armband on for positive identification. Provided Education on: ed tl4 process. 12:36 Deepak Fajardo, SHANITA is Primary Nurse. bp Administered Medications: 12:15 Drug: Dexamethasone IM 10 mg IM once; Give PO Route: IM; Site: left deltoid; bp 12:37 Follow up: Response: No adverse reaction bp 12:15 Drug: AZITHromycin PO 500 mg PO once Route: PO; bp 12:37 Follow up: Response: No adverse reaction bp Medication: 12:06 VIS not applicable for this client. tl4 Outcome: 12:09 Discharge ordered by . ec2 12:37 Discharged to home ambulatory, bp 12:37 Condition: stable 12:37 Discharge instructions given to patient, Instructed on discharge instructions, follow up and referral plans. medication usage, Demonstrated understanding of instructions, follow-up care, medications, Prescriptions given X 1, 12:37 Patient left the ED. bp Signatures: Deepak Fajardo RN RN bp Marlena Hoskins kj1 Jomar Rojas MD MD ec2 Say Varela RN RN tl4
--- NOTE | 2023-06-25 12:09 | EDPHYS ---
Physician Documentation [facility] Name: Alfredo Guajardo Age: 22 yrs Sex: Male : 2000 Arrival Date: 06/25/2023 Time: 11:21 Bed IW3 Private MD: ED Physician Jomar Rojas HPI: 06/25 12:10 This 22 yrs old Male presents to ER via Ambulatory with complaints of Flu ec2 Symptoms, Sore Throat. 12:10 Patient arrives today for evaluation of 2 weeks of symptoms. Patient reports has been ec2 having sinus congestion as well as sore throat, frequent cough. Patient reports no fevers or chills, denies nausea or vomiting. Patient reports otherwise has been tolerating p.o. without issue.. Historical: - Allergies: 12:04 No Known Allergies; tl4 - Home Meds: 12:04 Hydroxyzine Oral [Active]; tl4 - PMHx: 12:04 adhd; Anxiety; tl4 - PSHx: 12:04 None; tl4 - Immunization history:: Adult Immunizations unknown. - Social history:: Smoking status: Patient denies any tobacco usage or history of. ROS: 12:10 Constitutional: as per hpi ec2 Exam: 12:10 Constitutional: GEN: NAD Head: atraumatic Eyes: EOMI Ears: External ears are normal. ec2 mouth: Posterior pharyngeal erythema, no abscess CV: regular rate LUNGS: no respiratory distress ABD: non-distended SKIN: no evidence of rashes MSK: no evidence of trauma NEURO: moves all extremities equally Vital Signs: 12:02 BP 130 / 78; Pulse 92; Resp 16; Temp 98.4(O); Pulse Ox 100% on R/A; Weight 77.11 kg; tl4 Height 5 ft. 8 in. ; Pain 8/10; 12:02 Body Mass Index 25.85 (77.11 kg, 172.72 cm) tl4 12:02 Pain Scale: Adult tl4 MDM: 12:09 Patient medically screened. ec2 12:10 Data reviewed: vital signs. ED course: Patient arrives today for evaluation of URI ec2 signs and symptoms. Examination remarkable for well-appearing nontoxic dividual is otherwise in no acute distress. Given the patient's constellation of symptoms and duration of symptoms, will treat with antibiotics. Suspect bacterial sinusitis given the patient greater than 10 days of symptoms. Additionally possible strep pharyngitis, will defer testing as sinusitis therapy will be the same management.. Administered Medications: 12:15 Drug: Dexamethasone IM 10 mg IM once; Give PO Route: IM; Site: left deltoid; bp 12:37 Follow up: Response: No adverse reaction bp 12:15 Drug: AZITHromycin PO 500 mg PO once Route: PO; bp 12:37 Follow up: Response: No adverse reaction bp Disposition Summary: 06/25/23 12:09 Discharge Ordered Notes: Location: Home ec2 Condition: Stable ec2 Diagnosis - Acute pharyngitis, unspecified ec2 - Other acute sinusitis ec2 Followup: ec2 - With: Private Physician - When: - Reason: Re-evaluation by your physician Discharge Instructions: - Discharge Summary Sheet ec2 - Pharyngitis ec2 Forms: - Medication Reconciliation Form ec2 - Thank You Letter ec2 - Antibiotic Education ec2 - Prescription Opioid Use ec2 - Patient Portal Instructions ec2 - Leadership Thank You Letter ec2 Prescriptions: - azithromycin 250 mg Oral tablet - take 1 tablet ORAL route daily for 4 days; 4 tablet; Refills: 0, Product ec2 Selection Permitted Signatures: Deepak Fajardo RN RN bp Jomar Rojas MD MD ec2 Say Varela RN RN tl4
[2023-06-25 12:43] VITALS: BP 130/78; TEMP 98.4; O2SAT 100
== END ==
LOC: ER 11:21
DX: J02.9 Acute pharyngitis, unspecified (principal); J01.80 Other acute sinusitis
CPT/HCPCS: 96372; 99284; J1100

== ENCOUNTER 2023-10-09 22:05 | Emergency (ER) | payer SELFPAY ==
--- NOTE | 2023-10-09 22:44 | EDPHYS ---
Physician Documentation [facility] Name: Alfredo Guajardo Age: 23 yrs Sex: Male : 2000 Arrival Date: 10/09/2023 Time: 22:05 Bed 12 Private MD: ED Physician Leonardo Garcia HPI: 10/08 22:45 This 23 yrs old Male presents to ER via Ambulatory with complaints of Eye Problem. sb4 22:45 The patient is experiencing swelling, to the left eye, caused by rubbing. Onset: The sb4 symptoms/episode began/occurred this morning. Aggravated by nothing. Alleviated by nothing. Associated signs and symptoms: Pertinent negatives: chills, dizziness, ear ache, fever, headache, runny nose. Patient does not utilize any form of vision correction. The patient has not experienced similar symptoms in the past. The patient has not recently seen a physician. Historical: - Allergies: 22:28 No Known Allergies; as6 - Home Meds: 22:28 None [Active]; as6 - PMHx: 22:28 None; as6 - PSHx: 22:28 None; as6 - Immunization history:: Adult Immunizations not up to date. - Infectious Disease History:: Denies. - Social history:: Smoking status: Patient denies any tobacco usage or history of. ROS: 22:45 Constitutional: Negative for fever, chills, and weight loss, sb4 22:45 Eyes: Positive for swelling, of the left lower eyelid, 22:45 All other systems are negative, Exam: 22:45 Visual Acuity: Visual acuity is within normal limits. sb4 22:45 Constitutional: This is a well developed, well nourished patient who is awake, alert, and in no acute distress. Head/Face: Normocephalic, atraumatic. ENT: Mucous membranes moist. Skin: Warm, dry with normal turgor. Normal color with no rashes, no lesions, and no evidence of cellulitis. MS/ Extremity: Pulses equal, no cyanosis. Neurovascular intact. Full, normal range of motion. Neuro: Awake and alert, GCS 15, oriented to person, place, time, and situation. Motor strength 5/5 in all extremities. Sensory grossly intact. 22:45 Eyes: Periorbital structures: swelling, that is moderate, on the left lower eyelid, Pupils: equal, round, and reactive to light and accomodation, Extraocular movements: intact throughout, Conjunctiva: no acute changes, Corneas: are normal, Sclera: no appreciated abnormality, Lids and lashes: appear normal, Visual tiwari: are intact, Vital Signs: 22:27 BP 144 / 87; Pulse 83; Resp 18; Temp 97.6; Pulse Ox 100% ; Weight 77.11 kg; Height 5 as6 ft. 8 in. ; Pain 1/10; 22:27 Body Mass Index 25.85 (77.11 kg, 172.72 cm) as6 22:27 Pain Scale: Adult as6 MDM: 22:26 Patient medically screened. sb4 22:45 Data reviewed: vital signs, nurses notes, and as a result, I will discharge patient. sb4 Counseling: I had a detailed discussion with the patient and/or guardian regarding the historical points, exam findings, and any diagnostic results supporting the discharge/admit diagnosis, to return to the emergency department if symptoms worsen or persist or if there are any questions or concerns that arise at home. Administered Medications: 22:59 Drug: Amoxicillin-Clavulanate PO 875 mg PO once Route: PO; lg3 23:01 Follow up: Response: No adverse reaction lg3 Disposition: 10/09 07:13 Co-signature as Attending Physician, Leonardo Garcia MD I agree with the assessment sp4 and plan of care. I reviewed the patient's care provided by the Advanced Practice Provider and agree with the diagnosis and treatment plan. Disposition Summary: 10/09/23 22:44 Discharge Ordered Notes: Location: Home sb4 Problem: new sb4 Symptoms: have improved sb4 Condition: Stable sb4 Diagnosis - preseptal cellulitis, left sb4 Followup: sb4 - With: Emergency Department - When: As needed - Reason: Fever > 102 F, Trouble breathing, Worsening of condition Discharge Instructions: - Discharge Summary Sheet sb4 - Preseptal Cellulitis, Adult sb4 Forms: - Antibiotic Education sb4 - Patient Portal Instructions sb4 - Leadership Thank You Letter sb4 Prescriptions: - Augmentin 875-125 mg Oral Tablet - take 1 tablet ORAL route every 12 hours for 10 days; 20 tablet; Refills: 0, sb4 Product Selection Permitted Signatures: Viviana Snyder RN RN lg3 Abelardo Kwong SHANITA RN as6 Nina Guevara, PA-C PA-C sb4 Leonardo Garcia MD MD sp4
--- NOTE | 2023-10-09 22:44 | ER ---
Nurse's Notes [facility] Name: Alfredo Guajardo Age: 23 yrs Sex: Male : 2000 Arrival Date: 10/09/2023 Time: 22:05 Bed 12 Private MD: Diagnosis: preseptal cellulitis, left Presentation: 10/08 22:28 Chief complaint: Patient states: left eye swelling that started yesterday. Coronavirus as6 screen: At this time, the client does not indicate any symptoms associated with coronavirus-19. Ebola Screen: No symptoms or risks identified at this time. Initial Sepsis Screen: Does the patient meet any 2 criteria? No. Patient's initial sepsis screen is negative. Does the patient have a suspected source of infection? No. Patient's initial sepsis screen is negative. Risk Assessment: Do you want to hurt yourself or someone else? Patient reports no desire to harm self or others. Onset of symptoms was October 08, 2023. 22:28 Acuity: CHRIS 5 as6 22:28 Method Of Arrival: Ambulatory as6 Historical: - Allergies: 22:28 No Known Allergies; as6 - Home Meds: 22:28 None [Active]; as6 - PMHx: 22:28 None; as6 - PSHx: 22:28 None; as6 - Immunization history:: Adult Immunizations not up to date. - Infectious Disease History:: Denies. - Social history:: Smoking status: Patient denies any tobacco usage or history of. Screenin:59 [facility] ED Fall Risk Assessment (Adult) History of falling in the last 3 months, lg3 including since admission No falls in past 3 months (0 pts) Confusion or Disorientation No (0 pts) Intoxicated or Sedated No (0 pts) Impaired Gait No (0 pts) Mobility Assist Device Used No (0 pt) Altered Elimination No (0 pt) Score/Fall Risk Level 0 - 2 = Low Risk Oriented to surroundings, Maintained a safe environment, Educated pt \T\ family on fall prevention, incl call for assistance when getting out of bed, Assessed \T\ reinforced patient's understanding of fall precautions. Abuse screen: Denies threats or abuse. Denies injuries from another. Nutritional screening: No deficits noted. Tuberculosis screening: No symptoms or risk factors identified. Assessment: 22:59 General: Appears in no apparent distress. comfortable, Behavior is calm, cooperative. lg3 Pain: Complains of pain in left lower eyelid Pain does not radiate. Neuro: No deficits noted. Childs Agitation-Sedation Scale (RASS): 0 - Alert and Calm Level of Consciousness is awake, alert, obeys commands, Oriented to person, place, time, situation. Cardiovascular: No deficits noted. Denies chest pain, shortness of breath, Capillary refill < 3 seconds Clubbing of nail beds is absent JVD is absent Patient's skin is warm and dry. Respiratory: No deficits noted. Airway is patent Respiratory effort is even, unlabored, Respiratory pattern is regular, symmetrical. GI: No deficits noted. No signs and/or symptoms were reported involving the gastrointestinal system. : No deficits noted. No signs and/or symptoms were reported regarding the genitourinary system. EENT: Eyes are tearing on left eye. Derm: Skin is intact, is healthy with good turgor, Skin is dry, Skin is normal, Skin temperature is warm swelling to left eye noted. Musculoskeletal: No deficits noted. No signs and/or symptoms reported regarding the musculoskeletal system. Circulation, motion, and sensation intact. Range of motion: intact in all extremities. Vital Signs: 22:27 BP 144 / 87; Pulse 83; Resp 18; Temp 97.6; Pulse Ox 100% ; Weight 77.11 kg; Height 5 as6 ft. 8 in. ; Pain 1/10; 22:27 Body Mass Index 25.85 (77.11 kg, 172.72 cm) as6 22:27 Pain Scale: Adult as6 ED Course: 22:24 Patient arrived in ED. ra3 22:26 Nina Guevara PA-C is PHCP. sb4 22:26 Leonardo Garcia MD is Attending Physician. sb4 22:27 Arm band placed on right wrist. as6 22:29 Triage completed. as6 22:58 Viviana Snyder RN is Primary Nurse. lg3 22:59 Patient has correct armband on for positive identification. Door closed. Noise lg3 minimized. Warm blanket given. Pillow given. 22:59 No provider procedures requiring assistance completed. Patient did not have IV access lg3 during this emergency room visit. 23:01 Primary Nurse role handed off by Viviana Snyder, RN as6 Administered Medications: 22:59 Drug: Amoxicillin-Clavulanate PO 875 mg PO once Route: PO; lg3 23:01 Follow up: Response: No adverse reaction lg3 Medication: 22:59 VIS not applicable for this client. lg3 Outcome: 22:44 Discharge ordered by . sb4 22:59 Discharged to home ambulatory, lg3 22:59 Condition: stable 22:59 Discharge instructions given to patient, Instructed on discharge instructions, follow up and referral plans. medication usage, Demonstrated understanding of instructions, follow-up care, medications, Prescriptions given X 1, 23:02 Patient left the ED. lg3 Signatures: Viviana Snyder RN RN lg3 Abelardo Kwong RN RN as6 Nina Guevara, PA-C PA-C sb4 Jennifer Kan ra3
[2023-10-09] MEDS ORDERED: AMOX/K CLAV 875 MG TAB ONE (22:48)
[2023-10-09 23:08] VITALS: BP 144/87; TEMP 97.6; O2SAT 100
== END 2023-10-09 23:02 | disposition home or self-care (01) ==
LOC: ER 22:05
DX: L03.213 Periorbital cellulitis (principal)
CPT/HCPCS: 99283